=== PATIENT | female | born 1970 | race American Indian/Alaskan Native ===

== ENCOUNTER 2019-05-13 04:10 | Inpatient (IN) | payer SELFPAY ==
[2019-05-13] MEDS ORDERED: IPRATROPIUM/ALBUTEROL SULFATE 3 ML AMPUL.NEB IH ONE ×2 (04:22→04:47)
--- NOTE | 2019-05-13 05:16 | XRay Report ---
CHEST 2 VIEWS INDICATION / CLINICAL INFORMATION: cough and wheezing. COMPARISON: None available. FINDINGS: SUPPORT DEVICES: None. HEART / MEDIASTINUM: No significant abnormality. LUNGS / PLEURA: No significant pulmonary or pleural abnormality. .No pneumothorax. ADDITIONAL FINDINGS: No significant additional findings. IMPRESSION: 1. No acute findings. Signer Name: Bruce Presley MD Signed: 05/13/2019 5:11 AM Workstation Name: [id number]
--- NOTE | 2019-05-13 07:32 | Emergency Department Report ---
ED Chest Pain HPI - General Chief Complaint: Upper Respiratory Infection Stated Complaint: SOB Time Seen by Provider: 05/13/19 06:27 Source: patient Mode of arrival: Ambulatory Limitations: No Limitations - History of Present Illness Initial Comments: This is a 48-year old female who is morbidly obese with a history of pulmonary embolism who states that she is compliant with her Eliquis. She states that the source of the pulmonary embolism was not found. She does not report a history of coronary artery disease. She complains of largely nonproductive cough. She states that she had a temperature of 102.1 measured orally at home. She has been short of breath. She has had some discomfort in her anterior chest beginning just after arrival in the emergency department but not prior. She was given nebulized therapy prior to my encounter which she states was of benefit. She states that she does have a history of asthma. She does not complain of leg pain. She did not complain of nausea vomiting or unusual sweating. MD Complaint: chest pain -: Gradual, minutes(s) Onset: during rest Pain Location: substernal Pain Radiation: none Severity: mild, moderate Severity scale (0 -10): 0 Quality: aching Improves With: nothing Worsens With: nothing Context: other (History of pulmonary embolism) re: dyspnea. denies: nausea, vomting, diaphoresis Other Symptoms: cough, fever. denies: syncope Treatments Prior to Arrival: none Aspirin use within the Past 7 Days: (0) No - Related Data Home Medications Medication Instructions Recorded Confirmed Last Taken Albuterol INH(or & Nicu Only) 2 puff IH QID PRN 05/13/19 05/13/19 05/12/19 [ProAir HFA Inhaler] Apixaban [Eliquis] 5 mg PO BID 05/13/19 05/13/19 05/12/19 Fluticasone/Vilanterol [Breo 1 each IH QDAY 05/13/19 05/13/19 05/12/19 Ellipta 200-25 Mcg INH] Gabapentin [Neurontin] 300 mg PO Q8HR 05/13/19 05/13/19 05/12/19 Insulin Aspart (Nf) [NovoLOG 40 units SQ BID 05/13/19 05/13/19 05/12/19 Flexpen] Torsemide [Demadex] 20 mg PO BID 02/05/13/19 05/12/19 amLODIPine [Norvasc] 10 mg PO DAILY 05/13/19 05/13/19 05/12/19 carvediloL [Coreg] 12.5 mg PO BID 05/13/19 05/13/19 05/12/19 hydrALAZINE [Apresoline] 25 mg PO Q8HR 05/13/19 05/13/19 05/12/19 Allergies Allergy/AdvReac Type Severity Reaction Status Date / Time vancomycin Allergy Anaphylaxis Verified 05/13/19 04:42 IVP dye Allergy Hives Uncoded 05/13/19 04:33 Heart Score - HEART Score History: Moderately suspicious EKG: Non-specific Age: 45-65 Risk factors: > 3 risk factors or hx of atherosclerotic disease Troponin: < normal limit HEART Score: 5 - Critical Actions Critical Actions: 4-6 pts:12-16.6% risk of adverse cardiac event. Should be admitted ED Review of Systems ROS: Stated complaint: SOB Other details as noted in HPI Constitutional: fever. denies: chills Eyes: denies: eye pain, eye discharge, vision change ENT: denies: ear pain, throat pain Respiratory: cough, shortness of breath, wheezing Cardiovascular: chest pain. denies: palpitations Endocrine: no symptoms reported Gastrointestinal: denies: abdominal pain, nausea, diarrhea Genitourinary: denies: urgency, dysuria, discharge Musculoskeletal: denies: back pain, joint swelling, arthralgia Skin: denies: rash, lesions Neurological: denies: headache, weakness, paresthesias Psychiatric: denies: anxiety, depression Hematological/Lymphatic: denies: easy bleeding, easy bruising ED Past Medical Hx - Past Medical History Previous Medical History?: Yes Hx Hypertension: Yes Hx Diabetes: Yes Hx Pulmonary Embolism: Yes Hx Asthma: Yes Additional medical history: Morbid Obesity - Surgical History Hx Cholecystectomy: Yes Hx Appendectomy: Yes Additional Surgical History: Tibal Ligation, Hernia Repair - Social History Smoking Status: Never Smoker Substance Use Type: None - Medications Home Medications: Home Medications Medication Instructions Recorded Confirmed Last Taken Type Albuterol INH(or & Nicu Only) 2 puff IH QID PRN 05/13/19 05/13/19 05/12/19 History [ProAir HFA Inhaler] Apixaban [Eliquis] 5 mg PO BID 05/13/19 05/13/19 05/12/19 History Fluticasone/Vilanterol [Breo 1 each IH QDAY 05/13/19 05/13/19 05/12/19 History Ellipta 200-25 Mcg INH] Gabapentin [Neurontin] 300 mg PO Q8HR 05/13/19 05/13/19 05/12/19 History Insulin Aspart (Nf) [NovoLOG 40 units SQ BID 05/13/19 05/13/19 05/12/19 History Flexpen] Torsemide [Demadex] 20 mg PO BID 05/13/19 05/13/19 05/12/19 History amLODIPine [Norvasc] 10 mg PO DAILY 05/13/19 05/13/19 05/12/19 History carvediloL [Coreg] 12.5 mg PO BID 05/13/19 05/13/19 05/12/19 History hydrALAZINE [Apresoline] 25 mg PO Q8HR 05/13/19 05/13/19 05/12/19 History ED Physical Exam - General Limitations: No Limitations General appearance: alert, in no apparent distress - Head Head exam: Present: atraumatic, normocephalic - Eye Eye exam: Present: normal appearance. Absent: scleral icterus - ENT ENT exam: Present: mucous membranes moist - Neck Neck exam: Present: normal inspection. Absent: meningismus - Respiratory Respiratory exam: Present: wheezes (Mild end expiratory). Absent: respiratory distress - Cardiovascular Cardiovascular Exam: Present: regular rate, normal rhythm. Absent: systolic murmur, diastolic murmur, rubs, gallop - GI/Abdominal GI/Abdominal exam: Present: soft, normal bowel sounds. Absent: distended, tenderness, guarding, rebound, rigid - Extremities Exam Extremities exam: Present: normal inspection. Absent: calf tenderness - Back Exam Back exam: Present: normal inspection - Neurological Exam Neurological exam: Present: alert, oriented X3, CN II-XII intact. Absent: motor sensory deficit - Psychiatric Psychiatric exam: Present: normal affect, normal mood - Skin Skin exam: Present: warm, dry, intact, normal color. Absent: rash ED Course Vital Signs 05/13/19 05/13/19 05/13/19 04:34 04:59 05:13 Temperature 98.2 F Pulse Rate 125 H 113 H 109 H Respiratory 26 H 22 20 Rate Blood Pressure 224/56 Blood Pressure 177/76 [Left] O2 Sat by Pulse 99 100 100 Oximetry 05/13/19 05/13/19 05/13/19 06:16 06:46 07:00 Temperature 98.4 F Pulse Rate 121 H 106 H Respiratory 24 20 Rate Blood Pressure 187/85 Blood Pressure 191/81 [Left] O2 Sat by Pulse 100 97 97 Oximetry 05/13/19 05/13/19 08:00 08:21 Temperature Pulse Rate 101 H 105 H Respiratory 24 Rate Blood Pressure 194/89 194/89 Blood Pressure [Left] O2 Sat by Pulse 96 Oximetry - Reevaluation(s) Reevaluation #1: Lab analysis states clotted CBC and coag tubes. They request that we reorder. This has been done. The patient will be admitted to the hospital service for further care and evaluation. 05/13/19 09:07 Reevaluation #2: The patient has high pretest probability for pulmonary embolism. However, she is too large for diagnostic study. She is taking Eliquis. However I suspect the 5 mg dose is very low for her size. In either case I believe she should have empiric anticoagulation. I discussed this with the pharmacist. We agree that the patient will go on a standard heparin drip without bolus at this point. I am awaiting Dr. Castillo to admit the patient. The morning hospitalist (Dr. Barrow) has informed me that they are "capped" and admissions are deferred to the 11:00 hospitalist. 05/13/19 10:17 05/13/19 10:20 JJ score - Jj Score Age > 65: (0) No Aspirin use within the Past 7 Days: (0) No 3 or more CAD Risk Factors: (1) Yes 2 or more Angina events in past 24 hrs: (0) No Known CAD with more than 50% Stenosis: (0) No Elevated Cardiac Markers: (0) No ST Deviation Greater than 0.5mm: (0) No JJ Score: 1 ED Medical Decision Making - Lab Data Result diagrams: 05/13/19 09:16 05/13/19 07:23 Laboratory Results - last 24 hr 05/13/19 05/13/19 05/13/19 07:23 07:23 07:23 Sodium 140 Potassium 4.0 Chloride 100.5 Carbon Dioxide 18 L Anion Gap 26 BUN 11 Creatinine 0.7 Estimated GFR > 60 BUN/Creatinine Ratio 16 Glucose 238 H Lactic Acid 2.90 H* Calcium 9.6 Magnesium 1.90 Total Bilirubin 0.50 Direct Bilirubin 0.2 Indirect Bilirubin 0.3 AST 45 H ALT 46 Alkaline Phosphatase 182 H Total Creatine Kinase 64 CK-MB (CK-2) < 1.0 CK-MB (CK-2) Rel Index 1.5 Troponin T < 0.010 NT-Pro-B Natriuret Pep 214.4 Total Protein 7.9 Albumin 3.2 L Albumin/Globulin Ratio 0.7 Laboratory Results - last 24 hr 05/13/19 05/13/19 05/13/19 07:23 07:23 07:23 Sodium 140 Potassium 4.0 Chloride 100.5 Carbon Dioxide 18 L Anion Gap 26 BUN 11 Creatinine 0.7 Estimated GFR > 60 BUN/Creatinine Ratio 16 Glucose 238 H Lactic Acid 2.90 H* Calcium 9.6 Magnesium 1.90 Total Bilirubin 0.50 Direct Bilirubin 0.2 Indirect Bilirubin 0.3 AST 45 H ALT 46 Alkaline Phosphatase 182 H Total Creatine Kinase 64 CK-MB (CK-2) < 1.0 CK-MB (CK-2) Rel Index 1.5 Troponin T < 0.010 NT-Pro-B Natriuret Pep 214.4 Total Protein 7.9 Albumin 3.2 L Albumin/Globulin Ratio 0.7 Laboratory Results - last 24 hr 05/13/19 05/13/19 05/13/19 07:23 07:23 07:23 Sodium 140 Potassium 4.0 Chloride 100.5 Carbon Dioxide 18 L Anion Gap 26 BUN 11 Creatinine 0.7 Estimated GFR > 60 BUN/Creatinine Ratio 16 Glucose 238 H Lactic Acid 2.90 H* Calcium 9.6 Magnesium 1.90 Total Bilirubin 0.50 Direct Bilirubin 0.2 Indirect Bilirubin 0.3 AST 45 H ALT 46 Alkaline Phosphatase 182 H Total Creatine Kinase 64 CK-MB (CK-2) < 1.0 CK-MB (CK-2) Rel Index 1.5 Troponin T < 0.010 NT-Pro-B Natriuret Pep 214.4 Total Protein 7.9 Albumin 3.2 L Albumin/Globulin Ratio 0.7 Lab notified CBC not resulted - EKG Data -: EKG Interpreted by Mo EKG shows normal: sinus rhythm, axis, intervals, QRS complexes, ST-T waves Rate: normal - EKG Data Interpretation: no acute changes, other (Low voltage) - Radiology Data Radiology results: report reviewed (No acute process per radiologist), image reviewed Critical care attestation.: If time is entered above; I have spent that time in minutes in the direct care of this critically ill patient, excluding procedure time. ED Disposition Clinical Impression: Elevated lactic acid level, Morbid obesity, On continuous oral anticoagulation, History of pulmonary embolism Chest pain Qualifiers: Chest pain type: unspecified Qualified Code(s): R07.9 - Chest pain, unspecified Leukocytosis Qualifiers: Leukocytosis type: unspecified Qualified Code(s): D72.829 - Elevated white blood cell count, unspecified Hyperglycemia due to type 2 diabetes mellitus Qualifiers: Diabetes mellitus detention insulin use: without detention use Qualified Code(s): E11.65 - Type 2 diabetes mellitus with hyperglycemia Disposition: OP ADMIT IP TO THIS HOSP Is pt being admited?: Yes Does the pt Need Aspirin: Yes Condition: Stable Instructions: Chest Pain (ED), Diabetes Mellitus Type 2 in Adults (ED) Referrals: PRIMARY CARE, [Primary Care Provider] - 3-5 Days Time of Disposition: :07
[2019-05-13 08:20] LABS: BUN/Creatinine Ratio 16; Blood Urea Nitrogen 11 mg/dL (7-17); Calcium 9.6 mg/dL (8.4-10.2); Hemolysis Index 78
[2019-05-13 08:21] LABS: Alanine Aminotransferase 46 units/L (7-56); Albumin 3.2 g/dL (3.9-5); Bilirubin,Direct 0.2 mg/dL (0-0.2)
[2019-05-13 08:26] LABS: Creatine Kinase MB < 1.0 ng/mL (0.0-4.0)
[2019-05-13] MEDS ORDERED: ASPIRIN 325 MG TAB PO ONE (09:07)
[2019-05-13 09:38] LABS: Basophils % (Auto) 0.2 % (0.0-1.8); Eosinophils # (Auto) 0.1 K/mm3 (0.0-0.4); Eosinophils % (Auto) 0.3 % (0.0-4.3); Hematocrit 32.3 % (30.3-42.9); Hemoglobin 10.4 gm/dl (10.1-14.3); Lymphocytes # (Auto) 1.2 K/mm3 (1.2-5.4); Lymphocytes % (Auto) 5.9 % (13.4-35.0); Mean Corpuscular HGB Conc 32 % (30-34); Mean Corpuscular Volume 72 fl (79-97); Monocytes # (Auto) 1.5 K/mm3 (0.0-0.8); Monocytes % (Auto) 7.7 % (0.0-7.3); Platelet Count 443 K/mm3 (140-440); Red Blood Count 4.46 M/mm3 (3.65-5.03); Red Cell Distribution Width 18.2 % (13.2-15.2)
[2019-05-13] MEDS ORDERED: LORazepam 2 MG/ML VIAL IV PRN (09:45)
[2019-05-13] MEDS ORDERED: ONDANSETRON 4 MG/2 ML INJ IV ONE (09:54)
[2019-05-13] MEDS ORDERED: METOCLOPRAMIDE 10 MG/2 ML INJ IV ONE (09:55)
[2019-05-13] MEDS ORDERED: LORazepam 100 MG in SODIUM CHLORIDE 0.9% 50 ML, EMPTY BAG 0 ML IV SCH (10:00)
[2019-05-13 10:06] LABS: INR 1.07 (0.87-1.13); Partial Thromboplastin Time 29.2 Sec. (24.2-36.6)
[2019-05-13] MEDS ORDERED: MORPHINE 2 MG/1 ML INJ IV ONE (10:30)
[2019-05-13] MEDS ORDERED: MORPHINE 2 MG/1 ML INJ ONE (10:31)
[2019-05-13] MEDS: HEPARIN/ 0.45% NACL DRIP 25,000 UNIT/500 ML BAG IV SCH (11:54)
--- NOTE | 2019-05-13 16:20 | History and Physical Report ---
History of Present Illness Date of examination: 05/13/19 Date of admission: 05/13/19 10:20 History of present illness: This is a 48-year old female who is morbidly obese with a history of pulmonary embolism who states that she is compliant with her Eliquis. She states that the source of the pulmonary embolism was not found. She does not report a history of coronary artery disease. She complains of largely nonproductive cough. She states that she had a temperature of 102.1 measured orally at home. She has been short of breath. She has had some discomfort in her anterior chest begin kt just after arrival in the emergency department but not prior. She was given nebulized therapy prior to my encounter which she states was of benefit. She states that she does have a history of asthma. She does not complain of leg pain. She did not complain of nausea vomiting or unusual sweating. MD Complaint: chest pain -: Gradual, minutes(s) Onset: during rest Pain Location: substernal Pain Radiation: none Severity: mild, moderate Severity scale (0 -10): 0 Quality: aching Improves With: nothing Worsens With: nothing Context: other (History of pulmonary embolism) re: dyspnea. denies: nausea, vomting, diaphoresis Other Symptoms: cough, fever. denies: syncope Treatments Prior to Arrival: none Aspirin use within the Past 7 Days: (0) No - Related Data Home Medications Medication Instructions Recorded Confirmed Last Taken Albuterol INH(or & Nicu Only) 2 puff IH QID PRN 05/13/19 05/13/19 05/12/19 [ProAir HFA Inhaler] Apixaban [Eliquis] 5 mg PO BID 05/13/19 05/13/19 05/12/19 Fluticasone/Vilanterol [Breo 1 each IH QDAY 05/13/19 05/13/19 05/12/19 Ellipta 200-25 Mcg INH] Gabapentin [Neurontin] 300 mg PO Q8HR 05/13/19 05/13/19 05/12/19 Insulin Aspart (Nf) [NovoLOG 40 units SQ BID 05/13/19 05/13/19 05/12/19 Flexpen] Torsemide [Demadex] 20 mg PO BID 05/13/19 05/13/19 05/12/19 amLODIPine [Norvasc] 10 mg PO DAILY 05/13/19 05/13/19 05/12/19 carvediloL [Coreg] 12.5 mg PO BID 05/13/19 05/13/19 05/12/19 hydrALAZINE [Apresoline] 25 mg PO Q8HR 05/13/19 05/13/19 05/12/19 Allergies Allergy/AdvReac Type Severity Reaction Status Date / Time vancomycin Allergy Anaphylaxis Verified 05/13/19 04:42 IVP dye Allergy Hives Uncoded 05/13/19 04:33 Heart Score - HEART Score History: Moderately suspicious EKG: Non-specific Age: 45-65 Risk factors: > 3 risk factors or hx of atherosclerotic disease Troponin: < normal limit HEART Score: 5 - Critical Actions Critical Actions: 4-6 pts:12-16.6% risk of adverse cardiac event. Should be admitted ED Review of Systems ROS: Stated complaint: SOB Other details as noted in HPI Constitutional: fever. denies: chills Eyes: denies: eye pain, eye discharge, vision change ENT: denies: ear pain, throat pain Respiratory: cough, shortness of breath, wheezing Cardiovascular: chest pain. denies: palpitations Endocrine: no symptoms reported Gastrointestinal: denies: abdominal pain, nausea, diarrhea Genitourinary: denies: urgency, dysuria, discharge Musculoskeletal: denies: back pain, joint swelling, arthralgia Skin: denies: rash, lesions Neurological: denies: headache, weakness, paresthesias Psychiatric: denies: anxiety, depression Hematological/Lymphatic: denies: easy bleeding, easy bruising - Past Medical History Previous Medical History?: Yes Hx Hypertension: Yes Hx Diabetes: Yes Hx Pulmonary Embolism: Yes Hx Asthma: Yes Additional medical history: Morbid Obesity - Surgical History Hx Cholecystectomy: Yes Hx Appendectomy: Yes Additional Surgical History: Tibal Ligation, Hernia Repair - Social History Smoking Status: Never Smoker Substance Use Type: None - Medications Home Medications: Home Medications Medication Instructions Recorded Confirmed Last Taken Type Albuterol INH(or & Nicu Only) 2 puff IH QID PRN 05/13/19 05/13/19 05/12/19 History [ProAir HFA Inhaler] Apixaban [Eliquis] 5 mg PO BID 05/13/19 05/13/19 05/12/19 History Fluticasone/Vilanterol [Breo 1 each IH QDAY 05/13/19 05/13/19 05/12/19 History Ellipta 200-25 Mcg INH] Gabapentin [Neurontin] 300 mg PO Q8HR 05/13/19 05/13/19 05/12/19 History Insulin Aspart (Nf) [NovoLOG 40 units SQ BID 05/13/19 05/13/19 05/12/19 History Flexpen] Torsemide [Demadex] 20 mg PO BID 05/13/19 05/13/19 05/12/19 History amLODIPine [Norvasc] 10 mg PO DAILY 05/13/19 05/13/19 05/12/19 History carvediloL [Coreg] 12.5 mg PO BID 05/13/19 05/13/19 05/12/19 History hydrALAZINE [Apresoline] 25 mg PO Q8HR 05/13/19 05/13/19 05/12/19 History Medications and Allergies Allergies Allergy/AdvReac Type Severity Reaction Status Date / Time vancomycin Allergy Anaphylaxis Verified 05/13/19 04:42 IVP dye Allergy Hives Uncoded 05/13/19 04:33 Home Medications Medication Instructions Recorded Confirmed Last Taken Type Albuterol INH(or & Nicu Only) 2 puff IH QID PRN 05/13/19 05/13/19 05/12/19 History [ProAir HFA Inhaler] Apixaban [Eliquis] 5 mg PO BID 05/13/19 05/13/19 05/12/19 History Fluticasone/Vilanterol [Breo 1 each IH QDAY 05/13/19 05/13/19 05/12/19 History Ellipta 200-25 Mcg INH] Gabapentin [Neurontin] 300 mg PO Q8HR 05/13/19 05/13/19 05/12/19 History Insulin Aspart (Nf) [NovoLOG 40 units SQ BID 05/13/19 05/13/19 05/12/19 History Flexpen] Torsemide [Demadex] 20 mg PO BID 05/13/19 05/13/19 05/12/19 History amLODIPine [Norvasc] 10 mg PO DAILY 05/13/19 05/13/19 05/12/19 History carvediloL [Coreg] 12.5 mg PO BID 05/13/19 05/13/19 05/12/19 History hydrALAZINE [Apresoline] 25 mg PO Q8HR 05/13/19 05/13/19 05/12/19 History Active Meds: Active Medications Heparin Sodium/Sodium Chloride (Heparin/ 0.45% Nacl-25,000 Unit/500 Ml) 25,000 unit in 500 mls @ 30 mls/hr IV TITR JULITA; Protocol Last Admin: 05/13/19 11:54 Dose: 1,500 units/hr, 30 mls/hr Documented by: Lorazepam (Ativan) 2 mg IV Q10MIN PRN PRN Reason: Agitation Exam - Constitutional Vitals: Temp Pulse Resp BP Pulse Ox 98.4 F 107 H 30 H 137/51 95 05/13/19 06:46 05/13/19 12:52 05/13/19 12:00 05/13/19 13:51 05/13/19 12:52 ADRIAN score - Adrian Score Age > 65: (0) No Aspirin use within the Past 7 Days: (0) No 3 or more CAD Risk Factors: (1) Yes 2 or more Angina events in past 24 hrs: (0) No Known CAD with more than 50% Stenosis: (0) No Elevated Cardiac Markers: (0) No ST Deviation Greater than 0.5mm: (0) No ADRIAN Score: 1 Results - Labs CBC & Chem 7: 05/13/19 09:16 05/13/19 07:23 Labs: Laboratory Last Values WBC 19.4 K/mm3 (4.5-11.0) H 05/13/19 09:16 RBC 4.46 M/mm3 (3.65-5.03) 05/13/19 09:16 Hgb 10.4 gm/dl (10.1-14.3) 05/13/19 09:16 Hct 32.3 % (30.3-42.9) 05/13/19 09:16 MCV 72 fl (79-97) L 05/13/19 09:16 MCH 23 pg (28-32) L 05/13/19 09:16 MCHC 32 % (30-34) 05/13/19 09:16 RDW 18.2 % (13.2-15.2) H 05/13/19 09:16 Plt Count 443 K/mm3 (140-440) H 05/13/19 09:16 Lymph % (Auto) 5.9 % (13.4-35.0) L 05/13/19 09:16 Crosby % (Auto) 7.7 % (0.0-7.3) H 05/13/19 09:16 Eos % (Auto) 0.3 % (0.0-4.3) 05/13/19 09:16 Baso % (Auto) 0.2 % (0.0-1.8) 05/13/19 09:16 Lymph # 1.2 K/mm3 (1.2-5.4) 05/13/19 09:16 Crosby # 1.5 K/mm3 (0.0-0.8) H 05/13/19 09:16 Eos # 0.1 K/mm3 (0.0-0.4) 05/13/19 09:16 Baso # 0.0 K/mm3 (0.0-0.1) 05/13/19 09:16 Seg Neutrophils % 85.9 % (40.0-70.0) H 05/13/19 09:16 Seg Neutrophils # 16.7 K/mm3 (1.8-7.7) H 05/13/19 09:16 PT 14.0 Sec. (12.2-14.9) 05/13/19 09:16 INR 1.07 (0.87-1.13) 05/13/19 09:16 APTT 29.2 Sec. (24.2-36.6) 05/13/19 09:16 D-Dimer 1113.13 ng/mlDDU (0-234) H 05/13/19 09:16 Sodium 140 mmol/L (137-145) 05/13/19 07:23 Potassium 4.0 mmol/L (3.6-5.0) 05/13/19 07:23 Chloride 100.5 mmol/L (98-107) 05/13/19 07:23 Carbon Dioxide 18 mmol/L (22-30) L 05/13/19 07:23 Anion Gap 26 mmol/L 05/13/19 07:23 BUN 11 mg/dL (7-17) 05/13/19 07:23 Creatinine 0.7 mg/dL (0.7-1.2) 05/13/19 07:23 Estimated GFR > 60 ml/min 05/13/19 07:23 BUN/Creatinine Ratio 16 % 05/13/19 07:23 Glucose 238 mg/dL (65-100) H 05/13/19 07:23 Lactic Acid 1.80 mmol/L (0.7-2.0) 05/13/19 12:55 Calcium 9.6 mg/dL (8.4-10.2) 05/13/19 07:23 Magnesium 1.90 mg/dL (1.7-2.3) 05/13/19 07:23 Total Bilirubin 0.50 mg/dL (0.1-1.2) 05/13/19 07:23 Direct Bilirubin 0.2 mg/dL (0-0.2) 05/13/19 07:23 Indirect Bilirubin 0.3 mg/dL 05/13/19 07:23 AST 45 units/L (5-40) H 05/13/19 07:23 ALT 46 units/L (7-56) 05/13/19 07:23 Alkaline Phosphatase 182 units/L (35-129) H 05/13/19 07:23 Total Creatine Kinase 64 units/L (30-135) 05/13/19 07:23 CK-MB (CK-2) < 1.0 ng/mL (0.0-4.0) 05/13/19 07:23 CK-MB (CK-2) Rel Index 1.5 (0-4) 05/13/19 07:23 Troponin T < 0.010 ng/mL (0.00-0.029) 05/13/19 07:23 NT-Pro-B Natriuret Pep 214.4 pg/mL (0-450) 05/13/19 07:23 Total Protein 7.9 g/dL (6.3-8.2) 05/13/19 07:23 Albumin 3.2 g/dL (3.9-5) L 05/13/19 07:23 Albumin/Globulin Ratio 0.7 % 05/13/19 07:23
[2019-05-13] MEDS ORDERED: HYDROmorphone 1 MG/1 ML INJ IV PRN (18:38)
[2019-05-13] MEDS ORDERED: ACETAMINOPHEN 325 MG TAB PO PRN (18:38)
[2019-05-13] MEDS ORDERED: ONDANSETRON 4 MG/2 ML INJ IV PRN (18:38)
[2019-05-13] MEDS ORDERED: INSULIN DEGLUDEC SQ SCH (18:45)
[2019-05-13] MEDS ORDERED: NON-FORMULARY EACH (Losartan [Cozaar] 100 MG) PO SCH (18:45)
[2019-05-13] MEDS ORDERED: NON-FORMULARY EACH (Fluticasone/Vilanterol [Breo Ellipta 200-25 Mcg Inh] 1 EACH) IH SCH (18:45)
[2019-05-13] MEDS: carvediloL 12.5 MG TAB PO SCH (21:33)
[2019-05-13] MEDS: GABAPENTIN 300 MG CAP PO SCH (21:52)
[2019-05-13] MEDS: hydrALAZINE 25 MG TAB PO SCH (21:53)
[2019-05-13] MEDS: LOSARTAN 50 MG TAB PO SCH (21:53)
[2019-05-13] MEDS: amLODIPine 10 MG TAB PO SCH (21:55)
[2019-05-13] MEDS: FAMOTIDINE 20 MG/2 ML INJ IV SCH (21:56)
[2019-05-13] MEDS ORDERED: INSULIN GLARGINE 100 UNITS/ML SUB-Q SCH (22:00)
[2019-05-13] MEDS ORDERED: APIXABAN 5 MG TAB PO SCH (22:00)
[2019-05-13] MEDS ORDERED: NON-FORMULARY EACH (Torsemide [Demadex] 20 MG) PO SCH (22:00)
[2019-05-13] MEDS: TORSEMIDE 10 MG TAB PO SCH (22:30)
[2019-05-13] MEDS: INSULIN LISPRO 100 UNIT/ML SUB-Q SCH (23:05)
[2019-05-14] MEDS: HEPARIN/ 0.45% NACL DRIP 25,000 UNIT/500 ML BAG IV SCH (04:30)
[2019-05-14] MEDS: oxyCODONE /ACETAMINOPHEN 5-325MG TAB PO PRN ×2 (04:40→14:59)
[2019-05-14 05:38] LABS: Hematocrit 30.4 % (30.3-42.9); Hemoglobin 9.7 gm/dl (10.1-14.3); Mean Corpuscular HGB Conc 32 % (30-34); Mean Corpuscular Volume 72 fl (79-97); Platelet Count 400 K/mm3 (140-440); Red Blood Count 4.25 M/mm3 (3.65-5.03); Red Cell Distribution Width 18.3 % (13.2-15.2)
[2019-05-14] MEDS: GABAPENTIN 300 MG CAP PO SCH ×2 (05:48→15:00)
[2019-05-14] MEDS: TORSEMIDE 10 MG TAB PO SCH (05:48)
[2019-05-14] MEDS: hydrALAZINE 25 MG TAB PO SCH ×2 (05:48→14:59)
[2019-05-14 06:05] LABS: Alanine Aminotransferase 32 units/L (7-56); Albumin 2.9 g/dL (3.9-5); BUN/Creatinine Ratio 13; Blood Urea Nitrogen 13 mg/dL (7-17); Calcium 9.3 mg/dL (8.4-10.2); Hemolysis Index 0
[2019-05-14 07:07] LABS: Basophils % (Manual) 0 % (0.0-1.8); Total Cells Counted 100
[2019-05-14 07:08] LABS: Hypochromasia 1+; Platelet Estimate Consistent w Auto; Target Cells Few
[2019-05-14] MEDS ORDERED: BUDESONIDE 0.5 MG/2 ML NEBU IH SCH (08:00)
[2019-05-14] MEDS ORDERED: ARFORMOTEROL 15 MCG/2 ML NEBU IH SCH (08:00)
[2019-05-14 09:45] VITALS: BP 105/53
[2019-05-14] MEDS: FAMOTIDINE 20 MG/2 ML INJ IV SCH (10:53)
[2019-05-14] MEDS: carvediloL 12.5 MG TAB PO SCH (10:53)
[2019-05-14] MEDS: amLODIPine 10 MG TAB PO SCH (10:54)
[2019-05-14] MEDS: LOSARTAN 50 MG TAB PO SCH (10:54)
[2019-05-14] MEDS: INSULIN LISPRO 100 UNIT/ML SUB-Q SCH (11:03)
--- NOTE | 2019-05-14 13:33 | Progress Note ---
Subjective Date of service: 05/14/19 Objective - Constitutional Vitals: Vital Signs - 12hr 05/14/19 05/14/19 05/14/19 04:09 05:48 07:34 Temperature 98.0 F Pulse Rate 108 H 108 H Pulse Rate [ 100 H Anterior Bilateral Throughout] Respiratory 18 Rate Respiratory 20 Rate [Anterior Bilateral Throughout] Blood Pressure 138/61 136/81 O2 Sat by Pulse 96 Oximetry 05/14/19 05/14/19 05/14/19 08:27 10:53 10:54 Temperature 98.2 F Pulse Rate 95 H 88 Pulse Rate [ Anterior Bilateral Throughout] Respiratory 18 Rate Respiratory Rate [Anterior Bilateral Throughout] Blood Pressure 105/53 O2 Sat by Pulse Oximetry - Labs CBC & Chem 7: 05/14/19 04:58 05/14/19 04:58 Labs: Abnormal lab results 05/13/19 05/13/19 05/13/19 Range/Units 17:29 19:17 19:17 WBC (4.5-11.0) K/mm3 Hgb (10.1-14.3) gm/dl MCV (79-97) fl MCH (28-32) pg RDW (13.2-15.2) % Seg Neuts % (Manual) (40.0-70.0) % Lymphocytes % (Manual) (13.4-35.0) % Monocytes % (Manual) (0.0-7.3) % Seg Neutrophils # Man (1.8-7.7) K/mm3 Monocytes # (Manual) (0.0-0.8) K/mm3 Heparin Anti-Xa Level 0.10 L (0.3-0.7) U.I./ml Glucose (65-100) mg/dL POC Glucose 300 H (70-105) Hemoglobin A1c 8.6 H (4-6) % Alkaline Phosphatase (35-129) units/L Albumin (3.9-5) g/dL 05/13/19 05/14/19 05/14/19 Range/Units 21:41 02:50 04:58 WBC 18.1 H (4.5-11.0) K/mm3 Hgb 9.7 L (10.1-14.3) gm/dl MCV 72 L (79-97) fl MCH 23 L (28-32) pg RDW 18.3 H (13.2-15.2) % Seg Neuts % (Manual) 78.0 H (40.0-70.0) % Lymphocytes % (Manual) 8.0 L (13.4-35.0) % Monocytes % (Manual) 13.0 H (0.0-7.3) % Seg Neutrophils # Man 14.1 H (1.8-7.7) K/mm3 Monocytes # (Manual) 2.4 H (0.0-0.8) K/mm3 Heparin Anti-Xa Level 0.16 L (0.3-0.7) U.I./ml Glucose (65-100) mg/dL POC Glucose 242 H (70-105) Hemoglobin A1c (4-6) % Alkaline Phosphatase (35-129) units/L Albumin (3.9-5) g/dL 05/14/19 05/14/19 Range/Units 04:58 10:53 WBC (4.5-11.0) K/mm3 Hgb (10.1-14.3) gm/dl MCV (79-97) fl MCH (28-32) pg RDW (13.2-15.2) % Seg Neuts % (Manual) (40.0-70.0) % Lymphocytes % (Manual) (13.4-35.0) % Monocytes % (Manual) (0.0-7.3) % Seg Neutrophils # Man (1.8-7.7) K/mm3 Monocytes # (Manual) (0.0-0.8) K/mm3 Heparin Anti-Xa Level (0.3-0.7) U.I./ml Glucose 190 H (65-100) mg/dL POC Glucose 213 H (70-105) Hemoglobin A1c (4-6) % Alkaline Phosphatase 188 H (35-129) units/L Albumin 2.9 L (3.9-5) g/dL
[2019-05-14] MEDS ORDERED: cefTRIAXone/NS 2 GM/100 ML 2 GM/100 ML BAG IV SCH (14:00)
[2019-05-14 14:22] LABS: Bacteria,Urine 1+ /HPF (Negative); Bilirubin,Urine NEG (Negative); Blood,Urine NEG (Negative); Color,Urine Yellow (Yellow); Protein,Urine <15 mg/dL mg/dL (Negative)
== END 2019-05-14 16:10 | disposition home or self-care (01) | DRG 313 ==
LOC: ED 04:10 → 4A 10:20
PROVIDERS: ADMIT Internal Medicine; ATTEND Internal Medicine
DX: R07.9 Chest pain, unspecified (principal); Z68.45 Body mass index [BMI] 70 or greater, adult; E11.65 Type 2 diabetes mellitus with hyperglycemia; D72.829 Elevated white blood cell count, unspecified; R79.89 Other specified abnormal findings of blood chemistry; E66.01 Morbid (severe) obesity due to excess calories; I25.10 Atherosclerotic heart disease of native coronary artery without angina pectoris; Z79.51 Long term (current) use of inhaled steroids; Z79.899 Other long term (current) drug therapy; Z86.711 Personal history of pulmonary embolism; Z79.01 Long term (current) use of anticoagulants; Z79.4 Long term (current) use of insulin; Z88.1 Allergy status to other antibiotic agents; Z91.041 Radiographic dye allergy status; Z98.51 Tubal ligation status
CPT/HCPCS: 36415; 71046; 80048; 80053; 80076; 81001; 82140; 82550; 82553; 82962; 83036; 83735; 83880; 84484; 85007; 85025; 85379; 85520; 85610; 85730; 87040; 87116; 93005; 93010; 94640; 96374; 96375; G0378; J0696; J1170; J1644; J1815; J1956; J2060; J2270; J2405; J2765

== ENCOUNTER 2019-08-10 00:17 | Inpatient (IN) | payer OTHER ==
[2019-08-10] MEDS ORDERED: MORPHINE 4 MG/1 ML INJ IV ONE ×2 (00:54→02:23)
[2019-08-10] MEDS ORDERED: ONDANSETRON 4 MG/2 ML INJ IV ONE (00:54)
--- NOTE | 2019-08-10 01:25 | Emergency Department Report ---
HPI - General Time Seen by Provider: 08/10/19 00:29 - HPI HPI: 48-year-old -N[place]alese female presents to the emergency department via EMS from home with a complaint of severe mid abdominal pain, nausea and vomiting, that started earlier this afternoon. Patient has a history of hypertension, diabetes, CHF, asthma and previous PE currently anticoagulated on Eliquis. Patient also has a history of bowel obstructions. She had 1 in July 2017 that was repaired with some type of robotic laparoscopy. The patient also says that she was at [facility] about 1 month ago for a bowel obstruction as well that was treated at that time with nasogastric tubes. She has not taken anything for her symptoms prior to presentation. ED Past Medical Hx - Past Medical History Hx Hypertension: Yes Hx Diabetes: Yes Hx Pulmonary Embolism: Yes Hx Asthma: Yes Additional medical history: Morbid Obesity - Surgical History Hx Cholecystectomy: Yes Hx Appendectomy: Yes Additional Surgical History: Tibal Ligation, Hernia Repair - Social History Smoking Status: Never Smoker - Medications Home Medications: Home Medications Medication Instructions Recorded Confirmed Last Taken Type Albuterol INH(or & Nicu Only) 2 puff IH QID PRN 05/13/19 05/13/19 05/12/19 History [ProAir HFA Inhaler] Fluticasone/Vilanterol [Breo 1 each IH QDAY 05/13/19 05/13/19 05/12/19 History Ellipta 200-25 Mcg INH] Gabapentin 300 mg PO Q8HR 05/13/19 05/13/19 05/12/19 History Insulin Aspart (Nf) [NovoLOG 40 units SQ BID 05/13/19 05/13/19 05/12/19 History Flexpen] Losartan [Cozaar] 100 mg PO QDAY 05/13/19 05/13/19 Unknown History Semaglutide [Ozempic] 0.25 mg SQ 1XW 05/13/19 05/13/19 Unknown History amLODIPine 10 mg PO DAILY 05/13/19 05/13/19 05/12/19 History hydrALAZINE [Apresoline TAB] 25 mg PO Q8HR 05/13/19 05/13/19 05/12/19 History Apixaban [Eliquis] 5 mg PO BID #60 tablet 05/14/19 Unknown Rx Arformoterol Nebu [Brovana Nebu] 15 mcg IH Q12HRT ml 05/14/19 Unknown Rx Gabapentin 300 mg PO Q8HR capsule 05/14/19 Unknown Rx Insulin Degludec [Tresiba 50 unit SQ QHS #5 pen 05/14/19 Unknown Rx Flextouch U-200] Losartan [Cozaar] 100 mg PO QDAY tablet 05/14/19 Unknown Rx Torsemide [Demadex] 20 mg PO BID #60 05/14/19 Unknown Rx amLODIPine 10 mg PO DAILY tablet 05/14/19 Unknown Rx carvediloL [Coreg] 12.5 mg PO BID tablet 05/14/19 Unknown Rx cefUROXime [Ceftin] 500 mg PO Q12H #16 tablet 05/14/19 Unknown Rx oxyCODONE /ACETAMINOPHEN [Percocet 1 tab PO Q6H PRN #12 tablet 05/14/19 Unknown Rx 5/325 mg] oxyCODONE [roxiCODONE] 5 mg PO Q6HR PRN #20 tablet 05/14/19 Unknown Rx ED Review of Systems ROS: Stated complaint: ABD PAIN Other details as noted in HPI Comment: All other systems reviewed and negative Constitutional: denies: chills, fever Eyes: denies: eye pain, vision change ENT: denies: ear pain, throat pain Respiratory: denies: cough, shortness of breath Cardiovascular: denies: chest pain, palpitations Gastrointestinal: abdominal pain, nausea, vomiting Genitourinary: denies: dysuria, discharge Musculoskeletal: denies: back pain, arthralgia Skin: denies: rash, lesions Neurological: denies: headache, weakness Physical Exam - Physical Exam Physical Exam: GENERAL: The patient is well-developed well-nourished. HENT: Normocephalic. Atraumatic. Patient has moist mucous membranes. EYES: Extraocular motions are intact. NECK: Supple. Trachea is midline. CHEST/LUNGS: Clear to auscultation. There is no respiratory distress noted. HEART/CARDIOVASCULAR: Regular. There is no tachycardia. There is no murmur. ABDOMEN: Abdomen is soft. There is mid to upper quadrant abdominal tenderness to palpation. No guarding. Patient has normal bowel sounds. Morbidly obese habitus. SKIN: Skin is warm and dry. NEURO: The patient is awake, alert, and oriented. The patient is cooperative. The patient has no focal neurologic deficits. Normal speech. MUSCULOSKELETAL: There is no tenderness or deformity. There is no evidence of acute injury. ED Course - Consultations Consultation #1: I spoke with the general surgeon on-call, Dr. Lui, regarding the patient's CT findings of partial or full small bowel obstruction. An NG tube will be placed, the patient will receive gentle IV fluid, and Dr. Lui will consult on this patient. The patient will be admitted to the hospitalist service. 08/10/19 02:29 ED Medical Decision Making - Lab Data Result diagrams: 08/10/19 01:01 08/10/19 01:01 - Radiology Data Radiology results: report reviewed, image reviewed interpreted by me: Abdominal x-ray shows some proximal distended bowel gas CT ABDOMEN AND PELVIS WITHOUT CONTRAST HISTORY: MAIN: mid Abd pain started this afternoon N/V, HX of SBO. COMPARISON: None. TECHNIQUE: CT images of the abdomen and pelvis were obtained without administration of intravenous contrast. All CT scans at this location are performed using CT dose reduction for ALARA by means of automated exposure control. FINDINGS: Overall the exam is quite limited because of patient body habitus. Lungs/bones: Lung bases are clear. No acute osseous abnormality identified. A single enlarged left axillary lymph node is present measuring 1.1 cm in short axis on image #4 of series #2. Abdomen/pelvis: The gallbladder appears to be surgically absent. Liver is poorly visualized but no gross abnormality is identified. The spleen, pancreas, adrenals, kidneys, and proximal GI tract appear unremarkable. The urinary bladder is unremarkable. Reproductive organs are not well seen and may be absent. No gross pelvic free fluid identified. There is rectus abdominus diastasis in the midline containing bowel. This area also extends into an umbilical hernia which contains bowel and some of the upstream small bowel loops are abnormally dilated and fluid-filled. IMPRESSION: 1. Umbilical hernia containing bowel with upstream dilated fluid- filled bowel loops suggesting at least partial obstruction. 2. No other acute abnormality seen on this very limited exam. - Medical Decision Making This patient presents to the emergency department with some acute mid abdominal pain and some nausea and vomiting. She has a history of 2 previous small bowel obstructions. Labs are mostly unremarkable except for some hyperglycemia with a blood sugar of about 330. She does not appear in diabetic ketoacidosis. Abdominal x-ray shows some dilated proximal bowel gas. We were able to obtain a CT scan without contrast, as the patient is allergic to IV dye, and it shows at least a partial small bowel obstruction. General surgery was contacted and consulted. An NG tube has been placed and will be turned on to low intermittent suction. The patient will be admitted to the hospital for further evaluation, general surgery consult, and further treatment and was accepted for admission by the hospitalist, Dr. Mcwilliams. Critical Care Time: Yes Critical care time in (mins) excluding proc time.: 35 Critical care attestation.: If time is entered above; I have spent that time in minutes in the direct care of this critically ill patient, excluding procedure time. Critical care time was spent on this patient in doing her initial evaluation, multiple re- evaluations, ordering and interpretation of labs and imaging, treatment of her hyperglycemia, treatment of the SBO, discussion with general surgery and the hospitalist service. Critical Care Time: 35 minutes ED Disposition Clinical Impression: Small bowel obstruction, Hyperglycemia, Morbid obesity with BMI of 70 and over, adult Disposition: OP ADMIT IP TO THIS HOSP Is pt being admited?: Yes Condition: Serious Referrals: PRIMARY CARE, [Primary Care Provider] - 3-5 Days Time of Disposition: 04:31
[2019-08-10 01:31] LABS: Basophils # (Auto) 0.1 K/mm3 (0.0-0.1); Basophils % (Auto) 0.6 % (0.0-1.8); Eosinophils # (Auto) 0.1 K/mm3 (0.0-0.4); Eosinophils % (Auto) 1.3 % (0.0-4.3); Hematocrit 35.4 % (30.3-42.9); Hemoglobin 11.9 gm/dl (10.1-14.3); Lymphocytes # (Auto) 1.1 K/mm3 (1.2-5.4); Lymphocytes % (Auto) 9.2 % (13.4-35.0); Mean Corpuscular HGB Conc 34 % (30-34); Mean Corpuscular Volume 75 fl (79-97); Monocytes # (Auto) 0.5 K/mm3 (0.0-0.8); Platelet Count 494 K/mm3 (140-440); Red Blood Count 4.72 M/mm3 (3.65-5.03); Red Cell Distribution Width 19.8 % (13.2-15.2)
--- NOTE | 2019-08-10 01:48 | XRay Report ---
ABDOMEN 2 VIEW(S) INDICATION / CLINICAL INFORMATION: Abdominal Pain. COMPARISON: None available. FINDINGS: TUBES / LINES: None. BOWEL GAS PATTERN: A few abnormal mildly dilated small bowel loops left of midline are noted, ultimat arlene nonspecific since there is air distally. FREE AIR / EXTRALUMINAL GAS: None seen. ADDITIONAL FINDINGS: No significant additional findings. IMPRESSION: 1. Nonspecific small bowel findings. No gross free air. Signer Name: Salvatore Becerra MD Signed: 08/10/2019 1:43 AM Workstation Name: [id number]
[2019-08-10 01:58] LABS: Alanine Aminotransferase 11 units/L (7-56); Albumin 3.8 g/dL (3.9-5); BUN/Creatinine Ratio 28; Blood Urea Nitrogen 17 mg/dL (7-17); Hemolysis Index 22
[2019-08-10 01:59] LABS: Bilirubin,Direct < 0.2 mg/dL (0-0.2)
--- NOTE | 2019-08-10 02:30 | Cat Scan Report ---
CT ABDOMEN AND PELVIS WITHOUT CONTRAST HISTORY: MAIN: mid Abd pain started this afternoon N/V, HX of SBO. COMPARISON: None. TECHNIQUE: CT images of the abdomen and pelvis were obtained without administration of intravenous co ntrast. All CT scans at this location are performed using CT dose reduction for ALARA by means of au tomated exposure control. FINDINGS: Overall the exam is quite limited because of patient body habitus. Lungs/bones: Lung bases are clear. No acute osseous abnormality identified. A single enlarged left a xillary lymph node is present measuring 1.1 cm in short axis on image #4 of series #2. Abdomen/pelvis: The gallbladder appears to be surgically absent. Liver is poorly visualized but no g ross abnormality is identified. The spleen, pancreas, adrenals, kidneys, and proximal GI tract appear unremarkable. The urinary bladder is unremarkable. Reproductive organs are not well seen and may be absent. No deepali s pelvic free fluid identified. There is rectus abdominus diastasis in the midline containing bowel. This area also extends into an umbilical hernia which contains bowel and some of the upstream small b owel loops are abnormally dilated and fluid-filled. IMPRESSION: 1. Umbilical hernia containing bowel with upstream dilated fluid-filled bowel loops suggesting at chance st partial obstruction. 2. No other acute abnormality seen on this very limited exam. Signer Name: Salvatore Becerra MD Signed: 08/10/2019 2:26 AM Workstation Name: [id number]
[2019-08-10] MEDS ORDERED: INSULIN REGULAR, HUMAN 100 UNITS/1 ML IV ONE (02:38)
[2019-08-10] MEDS ORDERED: SODIUM CHLORIDE 0.9% 1000 ML 1,000 ML IV ONE ×2 (02:51→21:33)
[2019-08-10] MEDS ORDERED: DEXTROSE 50% IN WATER (25GM) 50 ML SYRINGE IV PRN (04:44)
[2019-08-10] MEDS ORDERED: ACETAMINOPHEN 325 MG TAB PO PRN (04:44)
--- NOTE | 2019-08-10 04:48 | XRay Report ---
ABDOMEN 1 VIEW(S) INDICATION / CLINICAL INFORMATION: tube placement. COMPARISON: 08/10/2019 FINDINGS: TUBES / LINES: NG tube curled on the mid stomach. BOWEL GAS PATTERN: No significant abnormality. FREE AIR / EXTRALUMINAL GAS: None seen. ADDITIONAL FINDINGS: No significant additional findings. IMPRESSION: 1. NG tube curled in the mid stomach. Signer Name: Salvatore Becerra MD Signed: 08/10/2019 4:43 AM Workstation Name: [id number]
--- NOTE | 2019-08-10 04:52 | History and Physical Report ---
History of Present Illness Date of examination: 08/10/19 Date of admission: 08/10/2019 Chief complaint: Abdominal pain History of present illness: 48-year-old with known history of hypertension, diabetes, CHF and also history of pulmonary embolism on anticoagulation with Eliquis presenting to the emergency room today complaining of abdominal pain. Abdominal pain was said to have started this afternoon. Abdominal pain is more in the epigastric region and around the periumbilical region. Patient has known history of bowel obstructions and has had robotic laparoscopy in the past. She was seen at [facility], [place] about a month ago for bowel obstruction at which time she was placed on NG tube. There is no no relieving or exacerbating factor for abdominal pain. She denies any fever or chills, no chest pain or shortness of breath, no headache or dizziness. Work-up in the emergency room including CT of the abdomen and pelvis reveals possible small bowel obstruction. Past History Past Medical History: diabetes, heart failure, hypertension, other (Asthma, history of PE in the past, morbid obesity) Past Surgical History: appendectomy, cholecystectomy, hernia repair (Hernia repair), Other (Tubal ligation, robotic laparoscopy,) Social history: no significant social history Family history: no significant family history Medications and Allergies Allergies Allergy/AdvReac Type Severity Reaction Status Date / Time vancomycin Allergy Anaphylaxis Verified 05/13/19 04:42 IVP dye Allergy Hives Uncoded 05/13/19 04:33 Home Medications Medication Instructions Recorded Confirmed Last Taken Type Albuterol INH(or & Nicu Only) 2 puff IH QID PRN 05/13/19 05/13/19 05/12/19 History [ProAir HFA Inhaler] Fluticasone/Vilanterol [Breo 1 each IH QDAY 05/13/19 05/13/19 05/12/19 History Ellipta 200-25 Mcg INH] Gabapentin 300 mg PO Q8HR 05/13/19 05/13/19 05/12/19 History Insulin Aspart (Nf) [NovoLOG 40 units SQ BID 05/13/19 05/13/19 05/12/19 History Flexpen] Losartan [Cozaar] 100 mg PO QDAY 05/13/19 05/13/19 Unknown History Semaglutide [Ozempic] 0.25 mg SQ 1XW 05/13/19 05/13/19 Unknown History amLODIPine 10 mg PO DAILY 05/13/19 05/13/19 05/12/19 History hydrALAZINE [Apresoline TAB] 25 mg PO Q8HR 05/13/19 05/13/19 05/12/19 History Apixaban [Eliquis] 5 mg PO BID #60 tablet 05/14/19 Unknown Rx Arformoterol Nebu [Brovana Nebu] 15 mcg IH Q12HRT ml 05/14/19 Unknown Rx Gabapentin 300 mg PO Q8HR capsule 05/14/19 Unknown Rx Insulin Degludec [Tresiba 50 unit SQ QHS #5 pen 05/14/19 Unknown Rx Flextouch U-200] Losartan [Cozaar] 100 mg PO QDAY tablet 05/14/19 Unknown Rx Torsemide [Demadex] 20 mg PO BID #60 05/14/19 Unknown Rx amLODIPine 10 mg PO DAILY tablet 05/14/19 Unknown Rx carvediloL [Coreg] 12.5 mg PO BID tablet 05/14/19 Unknown Rx cefUROXime [Ceftin] 500 mg PO Q12H #16 tablet 05/14/19 Unknown Rx oxyCODONE /ACETAMINOPHEN [Percocet 1 tab PO Q6H PRN #12 tablet 05/14/19 Unknown Rx 5/325 mg] oxyCODONE [roxiCODONE] 5 mg PO Q6HR PRN #20 tablet 05/14/19 Unknown Rx Active Meds: Active Medications Acetaminophen (Tylenol) 650 mg PO Q4H PRN PRN Reason: Pain MILD(1-3)/Fever >100.5/SAINZ Dextrose (D50w (25gm) Syringe) 50 ml IV Q30MIN PRN; Protocol PRN Reason: Hypoglycemia Sodium Chloride (Nacl 0.9% 1000 Ml) 1,000 mls @ 75 mls/hr IV ONCE ONE Stop: 08/10/19 16:10 Last Admin: 08/10/19 03:30 Dose: 75 mls/hr Documented by: Morphine Sulfate (Morphine) 2 mg IV Q4H PRN PRN Reason: Pain, Moderate (4-6) Ondansetron HCl (Zofran) 4 mg IV Q8H PRN PRN Reason: Nausea And Vomiting Sodium Chloride (Sodium Chloride Flush Syringe 10 Ml) 10 ml IV BID JULITA Sodium Chloride (Sodium Chloride Flush Syringe 10 Ml) 10 ml IV PRN PRN PRN Reason: LINE FLUSH Review of Systems Constitutional: no fever, no chills Ears, nose, mouth and throat: no headache, no vertigo Cardiovascular: no chest pain, no palpitations Respiratory: no cough, no shortness of breath Gastrointestinal: abdominal pain, nausea, vomiting, no diarrhea Genitourinary Female: no dysuria, no hematuria Musculoskeletal: no neck pain, no low back pain Integumentary: no rash, no pruritis Neurological: no headaches, no change in mentation Exam - Constitutional Vitals: Temp Pulse Resp BP Pulse Ox 97.5 F L 15 158/88 08/10/19 01:53 08/10/19 01:53 08/10/19 01:53 General appearance: Present: no acute distress, well-nourished, obese (Morbidly obese) - EENT Eyes: Present: PERRL, EOM intact ENT: hearing intact, clear oral mucosa, dentition normal - Neck Neck: Present: supple, normal ROM - Respiratory Respiratory effort: normal Respiratory: bilateral: CTA - Cardiovascular Rhythm: regular Heart Sounds: Present: S1 & S2 - Extremities Extremities: no ischemia, pulses intact, No edema, Full ROM Peripheral Pulses: within normal limits - Abdominal General gastrointestinal: Present: soft, tender (Tenderness in the epigastric and periumbilical region.), distended, hypoactive bowel sounds - Integumentary Integumentary: Present: clear, warm, dry - Musculoskeletal Musculoskeletal: strength equal bilaterally - Psychiatric Psychiatric: appropriate mood/affect, intact judgment & insight, cooperative - Neurologic Neurologic: CNII-XII intact, moves all extremities Results - Labs CBC & Chem 7: 08/10/19 01:01 08/10/19 01:01 Labs: Abnormal lab results 08/10/19 08/10/19 Range/Units 01:01 01:01 WBC 11.4 H (4.5-11.0) K/mm3 MCV 75 L (79-97) fl MCH 25 L (28-32) pg RDW 19.8 H (13.2-15.2) % Plt Count 494 H (140-440) K/mm3 Lymph % (Auto) 9.2 L (13.4-35.0) % Lymph # 1.1 L (1.2-5.4) K/mm3 Seg Neutrophils % 84.9 H (40.0-70.0) % Seg Neutrophils # 9.7 H (1.8-7.7) K/mm3 Sodium 135 L (137-145) mmol/L Chloride 94.7 L (98-107) mmol/L Creatinine 0.6 L (0.7-1.2) mg/dL Glucose 337 H (65-100) mg/dL Total Protein 8.5 H (6.3-8.2) g/dL Albumin 3.8 L (3.9-5) g/dL Lipase 11 L (13-60) units/L Assessment and Plan - Patient Problems (1) Small bowel obstruction Current Visit: Yes Status: Acute Plan to address problem: Patient has been placed n.p.o. We will place a consult to general surgery for evaluation and recommendation. (2) Hyperglycemia Current Visit: Yes Status: Acute Plan to address problem: We will monitor Accu-Cheks and place patient on sliding scale insulin. (3) Morbid obesity with BMI of 70 and over, adult Current Visit: Yes Status: Chronic Plan to address problem: We will place dietary consult for evaluation (4) DVT prophylaxis Current Visit: No Status: Acute Plan to address problem: Patient on anticoagulation. (5) Full code status Current Visit: Yes Status: Acute
[2019-08-10] MEDS ORDERED: INSULIN REGULAR, HUMAN 100 UNITS/1 ML ONE (06:09)
--- NOTE | 2019-08-10 08:43 | Event Note ---
Date: 08/10/19 Patient seen and examined. This is a follow-up from an admission earlier this morning. We will continue to plan as outlined in H&P. Total visit time equals 35 minutes with greater than 50% spent on coordination of care and counseling.
[2019-08-10] MEDS: INSULIN LISPRO 100 UNIT/ML SUB-Q SCH ×4 (09:03→23:45)
--- NOTE | 2019-08-10 10:33 | Consultation ---
History of Present Illness Consult date: 08/10/19 Reason for consult: abdominal pain Chief complaint: Abdominal pain - History of present illness History of present illness: 48-year-old female with a history of morbid obesity who presents to the emergenc y room last night for 1 day of supraumbilical abdominal pain. Pain is sharp and does not radiate. The patient has had an episode of pain like this in the past, most recently 1 month ago where she was admitted to an outside hospital for a small bowel obstruction. This was treated conservatively with an NG tube and bowel rest and she did eventually improve. The patient states that the pain is mild to moderate in severity. It is associated with nausea and she did have an episode of nonbilious nonbloody emesis yesterday. Since then she has not vomited. She has been having bowel movements but does not report flatus. An NG tube was placed in the emergency room but the patient states it fell out. The patient surgical history significant for a laparoscopic appendectomy, laparoscopic cholecystectomy, laparoscopic ventral hernia repair, diagnostic laparoscopy with lysis of adhesions and partial mesh excision for a complete small bowel obstruction in 2018. All of the surgeries were [place] of [place]. The patient states that she was being evaluated for bariatric surgery a few years ago and and her last stages of clearance, she developed a pulmonary embolism for which she was started on anticoagulation. The patient states that she is on Eliquis and has been told she will need to continue this for life. Past History Past Medical History: diabetes, heart failure, hypertension, other (Asthma, history of PE in the past, morbid obesity) Past Surgical History: appendectomy, cholecystectomy, hernia repair (Hernia repair), Other (Tubal ligation, robotic laparoscopy,) Social history: no significant social history Family history: no significant family history Medications and Allergies Allergies Allergy/AdvReac Type Severity Reaction Status Date / Time vancomycin Allergy Anaphylaxis Verified 05/13/19 04:42 IVP dye Allergy Hives Uncoded 05/13/19 04:33 Home Medications Medication Instructions Recorded Confirmed Last Taken Type Albuterol INH(or & Nicu Only) 2 puff IH QID PRN 05/13/19 05/13/19 05/12/19 History [ProAir HFA Inhaler] Fluticasone/Vilanterol [Breo 1 each IH QDAY 05/13/19 05/13/19 05/12/19 History Ellipta 200-25 Mcg INH] Gabapentin 300 mg PO Q8HR 05/13/19 05/13/19 05/12/19 History Insulin Aspart (Nf) [NovoLOG 40 units SQ BID 05/13/19 05/13/19 05/12/19 History Flexpen] Losartan [Cozaar] 100 mg PO QDAY 05/13/19 05/13/19 Unknown History Semaglutide [Ozempic] 0.25 mg SQ 1XW 05/13/19 05/13/19 Unknown History amLODIPine 10 mg PO DAILY 05/13/19 05/13/19 05/12/19 History hydrALAZINE [Apresoline TAB] 25 mg PO Q8HR 05/13/19 05/13/19 05/12/19 History Apixaban [Eliquis] 5 mg PO BID #60 tablet 05/14/19 Unknown Rx Arformoterol Nebu [Brovana Nebu] 15 mcg IH Q12HRT ml 05/14/19 Unknown Rx Gabapentin 300 mg PO Q8HR capsule 05/14/19 Unknown Rx Insulin Degludec [Tresiba 50 unit SQ QHS #5 pen 05/14/19 Unknown Rx Flextouch U-200] Losartan [Cozaar] 100 mg PO QDAY tablet 05/14/19 Unknown Rx Torsemide [Demadex] 20 mg PO BID #60 05/14/19 Unknown Rx amLODIPine 10 mg PO DAILY tablet 05/14/19 Unknown Rx carvediloL [Coreg] 12.5 mg PO BID tablet 05/14/19 Unknown Rx cefUROXime [Ceftin] 500 mg PO Q12H #16 tablet 05/14/19 Unknown Rx oxyCODONE /ACETAMINOPHEN [Percocet 1 tab PO Q6H PRN #12 tablet 05/14/19 Unknown Rx 5/325 mg] oxyCODONE [roxiCODONE] 5 mg PO Q6HR PRN #20 tablet 05/14/19 Unknown Rx Active Meds: Active Medications Acetaminophen (Tylenol) 650 mg PO Q4H PRN PRN Reason: Pain MILD(1-3)/Fever >100.5/SAINZ Dextrose (D50w (25gm) Syringe) 50 ml IV Q30MIN PRN; Protocol PRN Reason: Hypoglycemia Sodium Chloride (Nacl 0.9% 1000 Ml) 1,000 mls @ 75 mls/hr IV ONCE ONE Stop: 08/10/19 16:10 Last Admin: 08/10/19 03:30 Dose: 75 mls/hr Documented by: Insulin Human Lispro (Humalog) 0 unit SUB-Q ACHS [facility]; Protocol Last Admin: 08/10/19 09:03 Dose: 6 unit Documented by: Morphine Sulfate (Morphine) 2 mg IV Q4H PRN PRN Reason: Pain, Moderate (4-6) Ondansetron HCl (Zofran) 4 mg IV Q8H PRN PRN Reason: Nausea And Vomiting Sodium Chloride (Sodium Chloride Flush Syringe 10 Ml) 10 ml IV BID [facility] Last Admin: 08/10/19 09:04 Dose: 10 ml Documented by: Sodium Chloride (Sodium Chloride Flush Syringe 10 Ml) 10 ml IV PRN PRN PRN Reason: LINE FLUSH Review of Systems All systems: negative (10 point review systems was performed and negative except for that listed in HPI) Exam Vital Signs Temp Resp BP 97.5 F L 15 158/88 08/10/19 01:53 08/10/19 01:53 08/10/19 01:53 Narrative exam: Gen.: Awake, alert, oriented 3. No apparent distress ENT: Trachea midline. No lymphadenopathy. No scleral icterus or conjunctival pallor CV: S1, S2 present Respiratory: No audible wheezes Abdomen: Soft, morbid obesity, nondistended, mild supraumbilical tenderness to palpation. There are several well-healed surgical scars on the patient's abdomen. There is a reducible supraumbilical incisional hernia, without skin changes, with moderate tenderness to palpation during reduction. No rebound, rigidity, guarding Extremities: No clubbing, cyanosis, edema Results - Labs 08/10/19 01:01 08/10/19 01:01 Abnormal lab results 08/10/19 08/10/19 08/10/19 Range/Units 01:01 01:01 06:10 WBC 11.4 H (4.5-11.0) K/mm3 MCV 75 L (79-97) fl MCH 25 L (28-32) pg RDW 19.8 H (13.2-15.2) % Plt Count 494 H (140-440) K/mm3 Lymph % (Auto) 9.2 L (13.4-35.0) % Lymph # 1.1 L (1.2-5.4) K/mm3 Seg Neutrophils % 84.9 H (40.0-70.0) % Seg Neutrophils # 9.7 H (1.8-7.7) K/mm3 Sodium 135 L (137-145) mmol/L Chloride 94.7 L (98-107) mmol/L Creatinine 0.6 L (0.7-1.2) mg/dL Glucose 337 H (65-100) mg/dL POC Glucose 324 H (70-105) Total Protein 8.5 H (6.3-8.2) g/dL Albumin 3.8 L (3.9-5) g/dL Lipase 11 L (13-60) units/L 08/10/19 Range/Units 08:08 WBC (4.5-11.0) K/mm3 MCV (79-97) fl MCH (28-32) pg RDW (13.2-15.2) % Plt Count (140-440) K/mm3 Lymph % (Auto) (13.4-35.0) % Lymph # (1.2-5.4) K/mm3 Seg Neutrophils % (40.0-70.0) % Seg Neutrophils # (1.8-7.7) K/mm3 Sodium (137-145) mmol/L Chloride (98-107) mmol/L Creatinine (0.7-1.2) mg/dL Glucose (65-100) mg/dL POC Glucose 330 H (70-105) Total Protein (6.3-8.2) g/dL Albumin (3.9-5) g/dL Lipase (13-60) units/L Diabetes panel 08/10/19 Range/Units 01:01 Sodium 135 L (137-145) mmol/L Potassium 4.4 (3.6-5.0) mmol/L Chloride 94.7 L (98-107) mmol/L Carbon Dioxide 22 (22-30) mmol/L BUN 17 (7-17) mg/dL Creatinine 0.6 L (0.7-1.2) mg/dL Glucose 337 H (65-100) mg/dL Calcium 10.0 (8.4-10.2) mg/dL AST 14 (5-40) units/L ALT 11 (7-56) units/L Alkaline Phosphatase 81 (35-129) units/L Total Protein 8.5 H (6.3-8.2) g/dL Albumin 3.8 L (3.9-5) g/dL Calcium panel 08/10/19 Range/Units 01:01 Calcium 10.0 (8.4-10.2) mg/dL Albumin 3.8 L (3.9-5) g/dL Pituitary panel 08/10/19 Range/Units 01:01 Sodium 135 L (137-145) mmol/L Potassium 4.4 (3.6-5.0) mmol/L Chloride 94.7 L (98-107) mmol/L Carbon Dioxide 22 (22-30) mmol/L BUN 17 (7-17) mg/dL Creatinine 0.6 L (0.7-1.2) mg/dL Glucose 337 H (65-100) mg/dL Calcium 10.0 (8.4-10.2) mg/dL Adrenal panel 08/10/19 Range/Units 01:01 Sodium 135 L (137-145) mmol/L Potassium 4.4 (3.6-5.0) mmol/L Chloride 94.7 L (98-107) mmol/L Carbon Dioxide 22 (22-30) mmol/L BUN 17 (7-17) mg/dL Creatinine 0.6 L (0.7-1.2) mg/dL Glucose 337 H (65-100) mg/dL Calcium 10.0 (8.4-10.2) mg/dL Total Bilirubin 0.50 (0.1-1.2) mg/dL AST 14 (5-40) units/L ALT 11 (7-56) units/L Alkaline Phosphatase 81 (35-129) units/L Total Protein 8.5 H (6.3-8.2) g/dL Albumin 3.8 L (3.9-5) g/dL - Imaging Abdominal x-ray: report reviewed, image reviewed CT scan - abdomen: report reviewed, image reviewed CT scan - pelvis: report reviewed, image reviewed Assessment and Plan 48-year-old female with 1. Partial small bowel obstruction 2. Reducible incisional hernia 3. Morbid obesity 4. Diabetes -poorly controlled 5. History of PE on Eliquis Plan: 1. replace NGT - keep to LIWS 2. strict I/Os 3. NPO, ok to have ice chips once NGT is replaced 4. prn pain control 5. OOB/ambulate - PT consult 6. Pt is a poor surgical candidate for elective hernia repair. I discussed this with her in great detail. Her underlying conditions such as morbid obesity, poorly controlled DM, hx of PE on eliquis make her high risk for david and post op surgical complications/morbidity and for hernia recurrence. Patient's hernia was able to be reduced. If the patient's pSBO resolves with conservative management, will refer to bariatric surgeon at tertiary care hospital upon dis charge. Weight loss will be imperative for the patient. Thank you, please call with questions. Evaluation and treatment of this patient was during the time of the national and state emergency arising from COVID19 coronavirus pandemic. Treatment and procedures performed meet the current and available best practice and guidelines for patient during the COVID pandemic.
[2019-08-10] MEDS: MORPHINE 2 MG/1 ML INJ IV PRN ×2 (12:15→16:15)
[2019-08-10] MEDS: ONDANSETRON 4 MG/2 ML INJ IV PRN (12:15)
--- NOTE | 2019-08-10 14:02 | XRay Report ---
ABDOMEN 1 VIEW(S) INDICATION: NGT placement COMPARISON: None available. FINDINGS: There is Dobbhoff tube has tip in the stomach Bowel gas pattern: Within normal limits. No dilated loops of large or small bowel. Free air: None. Calcified gallstones: None seen. Calcified urinary tract calculi: None seen. Additional Findings: None. Skeletal structures: No acute abnormality. IMPRESSION: 1. No acute findings. Signer Name: Mervin Vazquez MD Signed: 08/10/2019 1:57 PM Workstation Name: [id number]
[2019-08-10] MEDS ORDERED: HYDROmorphone 2 MG/1 ML INJ IV ONE (21:00)
[2019-08-11] MEDS ORDERED: HYDROmorphone 1 MG/1 ML INJ IV ONE (04:44)
[2019-08-11 05:39] LABS: Basophils % (Auto) 0.3 % (0.0-1.8); Eosinophils # (Auto) 0.3 K/mm3 (0.0-0.4); Eosinophils % (Auto) 4.4 % (0.0-4.3); Hematocrit 36.3 % (30.3-42.9); Hemoglobin 11.5 gm/dl (10.1-14.3); Lymphocytes % (Auto) 14.8 % (13.4-35.0); Mean Corpuscular HGB Conc 32 % (30-34); Mean Corpuscular Volume 78 fl (79-97); Monocytes # (Auto) 0.6 K/mm3 (0.0-0.8); Monocytes % (Auto) 8.5 % (0.0-7.3); Platelet Count 457 K/mm3 (140-440); Red Blood Count 4.68 M/mm3 (3.65-5.03)
[2019-08-11 05:45] LABS: BUN/Creatinine Ratio 27; Blood Urea Nitrogen 19 mg/dL (7-17); Calcium 9.3 mg/dL (8.4-10.2); Hemolysis Index 2
[2019-08-11 05:54] LABS: INR 1.12 (0.87-1.13)
[2019-08-11 06:00] LABS: Red Cell Distribution Width 20.1 % (13.2-15.2)
[2019-08-11] MEDS: INSULIN LISPRO 100 UNIT/ML SUB-Q SCH ×4 (09:37→22:40)
--- NOTE | 2019-08-11 10:40 | Progress Note ---
History Interval history: Partial small bowel obstruction. Cont. NGT to LIS. Advance diet per Surgery. Pain control Reducible incisional hernia. Surgery following. Morbid obesity. Will refer to bariatric surgeon at tertiary care hospital upon discharge. Weight loss will be imperative for the patient. Diabetes Mellitus Type 2. Cont. SSRI and accuchecks. Tight glycemic control History of PE. Cont. on [facility] Hospitalist Physical - Constitutional Vitals: Temp Pulse Resp BP Pulse Ox 97.3 F L 99 H 18 153/73 97 08/11/19 07:22 08/11/19 07:22 08/11/19 07:22 08/11/19 07:22 08/11/19 07:22 General appearance: Present: no acute distress, well-nourished, obese (Morbidly obese) Results - Labs CBC & Chem 7: 08/11/19 05:03 08/11/19 05:03 Labs: Laboratory Last Values WBC 6.9 K/mm3 (4.5-11.0) 08/11/19 05:03 RBC 4.68 M/mm3 (3.65-5.03) 08/11/19 05:03 Hgb 11.5 gm/dl (10.1-14.3) 08/11/19 05:03 Hct 36.3 % (30.3-42.9) 08/11/19 05:03 MCV 78 fl (79-97) L 08/11/19 05:03 MCH 25 pg (28-32) L 08/11/19 05:03 MCHC 32 % (30-34) 08/11/19 05:03 RDW 20.1 % (13.2-15.2) H 08/11/19 05:03 Plt Count 457 K/mm3 (140-440) H 08/11/19 05:03 Lymph % (Auto) 14.8 % (13.4-35.0) 08/11/19 05:03 [place] % (Auto) 8.5 % (0.0-7.3) H 08/11/19 05:03 Eos % (Auto) 4.4 % (0.0-4.3) H 08/11/19 05:03 Baso % (Auto) 0.3 % (0.0-1.8) 08/11/19 05:03 Lymph # 1.0 K/mm3 (1.2-5.4) L 08/11/19 05:03 [place] # 0.6 K/mm3 (0.0-0.8) 08/11/19 05:03 Eos # 0.3 K/mm3 (0.0-0.4) 08/11/19 05:03 Baso # 0.0 K/mm3 (0.0-0.1) 08/11/19 05:03 Seg Neutrophils % 72.0 % (40.0-70.0) H 08/11/19 05:03 Seg Neutrophils # 5.0 K/mm3 (1.8-7.7) 08/11/19 05:03 PT 14.5 Sec. (12.2-14.9) 08/11/19 05:03 INR 1.12 (0.87-1.13) 08/11/19 05:03 Sodium 138 mmol/L (137-145) 08/11/19 05:03 Potassium 4.3 mmol/L (3.6-5.0) 08/11/19 05:03 Chloride 102.2 mmol/L (98-107) 08/11/19 05:03 Carbon Dioxide 24 mmol/L (22-30) 08/11/19 05:03 Anion Gap 16 mmol/L 08/11/19 05:03 BUN 19 mg/dL (7-17) H 08/11/19 05:03 Creatinine 0.7 mg/dL (0.7-1.2) 08/11/19 05:03 Estimated GFR > 60 ml/min 08/11/19 05:03 BUN/Creatinine Ratio 27 % 08/11/19 05:03 Glucose 317 mg/dL (65-100) H 08/11/19 05:03 POC Glucose 301 (70-105) H 08/10/19 12:16 Calcium 9.3 mg/dL (8.4-10.2) 08/11/19 05:03 Total Bilirubin 0.50 mg/dL (0.1-1.2) 08/10/19 01:01 Direct Bilirubin < 0.2 mg/dL (0-0.2) 08/10/19 01:01 Indirect Bilirubin 0.3 mg/dL 08/10/19 01:01 AST 14 units/L (5-40) 08/10/19 01:01 ALT 11 units/L (7-56) 08/10/19 01:01 Alkaline Phosphatase 81 units/L (35-129) 08/10/19 01:01 Total Protein 8.5 g/dL (6.3-8.2) H 08/10/19 01:01 Albumin 3.8 g/dL (3.9-5) L 08/10/19 01:01 Albumin/Globulin Ratio 0.8 % 08/10/19 01:01 Lipase 11 units/L (13-60) L 08/10/19 01:01 Bob/IV: Voiding Method Toilet IV Catheter Type [Left Peripheral IV Antecubital] Active Medications - Current Medications Current Medications: Generic Name Dose Route Start Last Admin Trade Name Freq PRN Reason Stop Dose Admin Acetaminophen 650 mg 08/10/19 04:44 Tylenol PO Q4H PRN Pain MILD(1-3)/Fever >100.5/SAINZ Dextrose 50 ml 08/10/19 04:44 D50w (25gm) Syringe IV Q30MIN PRN Hypoglycemia Protocol Sodium Chloride 1,000 mls @ 75 mls/hr 08/10/19 21:33 08/10/19 22:23 Nacl 0.9% 1000 Ml IV 08/11/19 10:52 75 mls/hr ONCE ONE Administration Insulin Human Lispro 0 unit 08/10/19 07:30 08/11/19 09:37 Humalog SUB-Q 4 unit ACHS JULITA Administration Protocol Morphine Sulfate 2 mg 08/10/19 04:44 08/10/19 16:15 Morphine IV 2 mg Q4H PRN Administration Pain, Moderate (4-6) Ondansetron HCl 4 mg 08/10/19 04:44 08/10/19 12:15 Zofran IV 4 mg Q8H PRN Administration Nausea And Vomiting Sodium Chloride 10 ml 08/10/19 10:00 08/10/19 23:25 Sodium Chloride Flush Syringe 10 Ml IV 10 ml BID JULITA Administration Sodium Chloride 10 ml 08/10/19 04:44 Sodium Chloride Flush Syringe 10 Ml IV PRN PRN LINE FLUSH
[2019-08-11] MEDS ORDERED: D5W/0.9% NACL 1,000 ML IV SCH (11:00)
[2019-08-11] MEDS: MORPHINE 2 MG/1 ML INJ IV PRN (11:07)
--- NOTE | 2019-08-11 11:28 | Progress Note ---
Assessment and Plan 48-year-old female with 1. Partial small bowel obstruction 2. Reducible incisional hernia 3. Morbid obesity 4. Diabetes -poorly controlled 5. History of PE on Eliquis Plan: 1. Dobbhoff was removed and I personally replaced an NG tube. An 18 Bulgarian NG tube was passed through the left nare without difficulty and positioning confi rmed with auscultation as well as abdominal x-ray. Light bilious fluid mixed with clear liquid was aspirated. Continue NG tube to low intermittent wall suction. 2. strict I/Os 3. NPO, ok to have ice chips 4. prn pain control -IV Dilaudid 5. OOB/ambulate - PT consult 6. Due to the patient's body habitus, abdominal exam and palpation of the hernia is difficult. Although the patient did get relief after the hernia was reduced, reevaluation pSBO with CT scan of the abdomen and pelvis with oral c ontrast will be very helpful. Abdominal x-rays thus far have shown a normal bowel gas pattern. 7. Further recs pending repeat CT A/P results 8. DVT ppx. continue to hold eliquis Pt is a poor surgical candidate for elective hernia repair. I discussed this with her in great detail. Her underlying conditions such as morbid obesity, poorly controlled DM, hx of PE on eliquis make her high risk for david and post op surgical complications/morbidity and for hernia recurrence. Patient's hernia was able to be reduced. If the patient's pSBO resolves with conservative management, will refer to bariatric surgeon at tertiary care hospital upon discharge. Weight loss will be imperative for the patient. Thank you, please call with questions. Evaluation and treatment of this patient was during the time of the national and state emergency arising from COVID19 coronavirus pandemic. Treatment and procedures performed meet the current and available best practice and guidelines for patient during the COVID pandemic. Subjective Date of service: 08/11/19 Narrative: Patient seen and examined. Complaining of severe epigastric and mid abdominal pain. No nausea or vomiting. Yesterday an NG tube was ordered to be placed, however a Dobbhoff was placed by nursing. This is been hooked to suction since yesterday and there is been minimal bilious output. The patient states she is not passing flatus or having any bowel movements. She states that morphine does not help with her pain, but Dilaudid helps significantly. No fevers, chills. Objective Vital Signs - 12hr 08/11/19 08/11/19 08/11/19 00:22 04:32 04:42 Temperature 97.4 F L 98.2 F Pulse Rate 95 H 98 H Respiratory 18 18 18 Rate Blood Pressure 123/73 152/93 O2 Sat by Pulse 88 98 Oximetry 08/11/19 07:22 Temperature 97.3 F L Pulse Rate 99 H Respiratory 18 Rate Blood Pressure 153/73 O2 Sat by Pulse 97 Oximetry - General physical appearance Narrative Exam: Gen.: Awake, alert, oriented 3. Moderate distress due to abdominal pain ENT: Trachea midline. No lymphadenopathy. No scleral icterus or conjunctival pallor CV: S1, S2 present Respiratory: No audible wheezes Abdomen: Soft, nondistended, positive tenderness to palpation in the supraumbilical region. Hernia palpable, and was reduced. No rebound, rigidity, guarding Extremities: No clubbing, cyanosis, edema - Labs 08/11/19 05:03 08/11/19 05:03 Diabetes panel 08/11/19 Range/Units 05:03 Sodium 138 (137-145) mmol/L Potassium 4.3 (3.6-5.0) mmol/L Chloride 102.2 (98-107) mmol/L Carbon Dioxide 24 (22-30) mmol/L BUN 19 H (7-17) mg/dL Creatinine 0.7 (0.7-1.2) mg/dL Glucose 317 H (65-100) mg/dL Calcium 9.3 (8.4-10.2) mg/dL Calcium panel 08/11/19 Range/Units 05:03 Calcium 9.3 (8.4-10.2) mg/dL Pituitary panel 08/11/19 Range/Units 05:03 Sodium 138 (137-145) mmol/L Potassium 4.3 (3.6-5.0) mmol/L Chloride 102.2 (98-107) mmol/L Carbon Dioxide 24 (22-30) mmol/L BUN 19 H (7-17) mg/dL Creatinine 0.7 (0.7-1.2) mg/dL Glucose 317 H (65-100) mg/dL Calcium 9.3 (8.4-10.2) mg/dL Adrenal panel 05/15/20 Range/Units 05:03 Sodium 138 (137-145) mmol/L Potassium 4.3 (3.6-5.0) mmol/L Chloride 102.2 (98-107) mmol/L Carbon Dioxide 24 (22-30) mmol/L BUN 19 H (7-17) mg/dL Creatinine 0.7 (0.7-1.2) mg/dL Glucose 317 H (65-100) mg/dL Calcium 9.3 (8.4-10.2) mg/dL
[2019-08-11] MEDS ORDERED: HYDROmorphone 1 MG/1 ML INJ IM STA (12:17)
[2019-08-11] MEDS: ENOXAPARIN 40 MG/0.4 ML INJ SUB-Q SCH (12:22)
--- NOTE | 2019-08-11 13:49 | XRay Report ---
ABDOMEN 1 VIEW INDICATION / CLINICAL INFORMATION: NGT positioning. COMPARISON: KUB from 08/10/2019. FINDINGS: This study is limited by portable technique and the patient's body habitus. TUBES / LINES: An NG tube terminates over the distal gastric body. BOWEL GAS PATTERN: There is nonspecific mild small bowel dilatation along the left mid to lower abdom en. FREE AIR / EXTRALUMINAL GAS: None seen. ADDITIONAL FINDINGS: No significant additional findings. IMPRESSION: Satisfactory positioning of the NG tube with a nonspecific bowel gas pattern as above. Signer Name: Justin Handy MD Signed: 08/11/2019 1:45 PM Workstation Name: [id number]
[2019-08-11 14:36] LABS: Bilirubin,Urine NEG (Negative); Blood,Urine MOD (Negative); Color,Urine Yellow (Yellow); Mucus,Urine FEW /HPF; Protein,Urine <15 mg/dL mg/dL (Negative); Urobilinogen,Urine < 2.0 mg/dL (<2.0)
--- NOTE | 2019-08-11 16:53 | Cat Scan Report ---
CT ABDOMEN AND PELVIS WITHOUT CONTRAST INDICATION: Abdominal pain. Follow-up of small bowel obstruction. COMPARISON: CT abdomen and pelvis without contrast from 08/10/2019. TECHNIQUE: Axial, coronal and sagittal CT imaging of the abdomen and pelvis was performed without co ntrast. Lack of intravenous contrast limits evaluation of the vascular and solid organs. All CT sca ns at this location are performed using CT dose reduction for ALARA by means of automated exposure co ntrol. FINDINGS: The study is limited by the patient's body habitus and exclusion of the anterior abdomen, despite rep eat scanning. LOWER CHEST: No significant abnormality. LIVER: No significant abnormality. BILIARY: Prior cholecystectomy. No biliary ductal dilatation. PANCREAS: No significant abnormality. SPLEEN: No significant abnormality. ADRENALS: No significant abnormality. KIDNEYS AND URETERS: No significant abnormality. GI TRACT: The previously described mild small bowel dilatation is unchanged. The previously described umbilical hernia is not well-visualized. No significant abnormality of the stomach or colon. An NG t ube terminates along the distal gastric body. The appendix is surgically absent. PERITONEUM: No free fluid. No free air. No fluid collection. LYMPH NODES: No significant adenopathy. VASCULATURE: No significant abnormality. URINARY BLADDER: No significant abnormality. REPRODUCTIVE ORGANS: A lobulated soft tissue density structure along the midline of the pelvis may re present an enlarged uterus secondary to the presence of multiple fibroids. No additional significant abnormality. ADDITIONAL FINDINGS: None. SKELETAL SYSTEM: No acute abnormality. IMPRESSION: 1. Limited exam demonstrating similar findings of at least a partial small bowel obstruction compared to the prior CT from 08/10/2019. 2. Additional findings as above. Signer Name: Justin Handy MD Signed: 08/11/2019 4:49 PM Workstation Name: [id number]
--- NOTE | 2019-08-11 17:10 | Event Note ---
Date: 08/11/19 Pt reevaluated. Continues to complain of severe supraumbilical pain. It is only improved after she gets dilaudid IV. Repeat CT scan A/P images and report reviewed. Persistent SBO due to supraumbilical incisional hernia. NGT in place with bilious output Due to the CT findings, patient's pain in the location of the hernia, and inability to reliably reduce hernia at bedside due to patient body habitus - I recommend OR for hernia reduction, evaluation of the incarcerated bowel, and hernia repair. I discussed this in detail with the patient and her daughter over the telephone. I explained that the patient is at increased risk for surgery and anesthesia due to her comorbid conditions. They understand. All risks, benefits, alternatives to surgery discussed with them. All questions answered. Consent obtained for diagnostic laparoscopy, possible exploratory laparotomy, reduction of hernia, possible bowel resection, possible mesh. Will proceed to OR tonight. Preop abx ordered. Continue NPO, IVF.
[2019-08-11] MEDS: HYDROmorphone 1 MG/1 ML INJ IV PRN (17:12)
[2019-08-11] MEDS: ONDANSETRON 4 MG/2 ML INJ IV PRN (17:25)
[2019-08-11] MEDS ORDERED: metroNIDAZOLE/NS 500 MG/100 ML 500 MG/100 ML BAG IV NR (18:00)
--- NOTE | 2019-08-11 18:13 | Anesthesia Consultation ---
Anesthesia Consult and Med Hx Date of service: 08/11/19 - Airway Anesthetic Teeth Evaluation: Good ROM Head & Neck: Adequate Mental/Hyoid Distance: Adequate Mallampati Class: Class I Intubation Access Assessment: Possibly Difficult (large body habitus) - Pulmonary Exam CTA: Yes - Cardiac Exam Cardiac Exam: RRR - Pre-Operative Health Status ASA Pre-Surgery Classification: ASA3, Emergency Proposed Anesthetic Plan: General - Pulmonary Hx Smoking: No Hx Asthma: Yes Home Oxygen Therapy: Yes (3L nocturnal) - Cardiovascular System Hx Hypertension: Yes Hx Coronary Artery Disease: No (reports LHC last year with no CAD) Hx Heart Attack/AMI: No Hx Percutaneous Transluminal Coronary Angioplasty (PTCA): No Hx Cardia Arrhythmia: No - Central Nervous System CVA: No - Gastrointestinal Hx Gastroesophageal Reflux Disease: No - Endocrine Hx Renal Disease: No Hx Liver Disease: No Hx Insulin Dependent Diabetes: Yes Hx Thyroid Disease: No - Hematic Hx Anemia: Yes - Other Systems Hx Obesity: Yes (BMI 77) - Additional Comments Anesthesia Medical History Comments: PMH BMI 77, hx PE 2018 on eliquis, asthma, HTN, IDDM, home O2 with SBO 2/2 hernia scheduled for emergent repair. She has hx delayed emergence after a previous surgery. She reports have LHC done last year with no CAD and normal heart function however chart review mentions diagnosis of CHF (no TTE or LHC records available for review). She reports compliance with eliquis (last dose 2 days ago) and she received prophylactic anticogulation today. HD stable, normal SpO2 on room air, elevated glucose which is being treated with SSI while inpatient. Discussed risk of respiratory failure requiring post op mechanical ventilation, periop OK, DVT/PE and other risks associated with planned surgical procedure and anesthetic. Patient verbalized understanding of these risks and consents to anesthesia. Plan GETA/RSI, stnd ASA monitors +/- a-line, possible post op ventilation and ICU admission.
--- NOTE | 2019-08-11 18:23 | Anesthesia Day of Surgery ---
Anesthesia Day of Surgery - Day of Surgery Patient Examined: Yes Patient H&P Reviewed: Yes Patient is NPO: Yes
[2019-08-11] MEDS ORDERED: SUCCINYLCHOLINE CHLORIDE 200 MG/10 ML INJ MDV ONE (19:50)
[2019-08-11] MEDS ORDERED: fentaNYL 250 MCG/5 ML INJ ONE (19:50)
[2019-08-11] MEDS ORDERED: LACTATED RINGERS 1,000 ML ONE ×3 (19:50→22:28)
[2019-08-11] MEDS ORDERED: propofoL 200 MG/20 ML VIAL IV ONE ×2 (19:50→19:51)
[2019-08-11] MEDS ORDERED: ROCURONIUM 50 MG/5 ML INJ IV ONE (19:50)
[2019-08-11] MEDS ORDERED: LIDOCAINE MPF (2%) 20 MG/1 ML VIAL 5 ML ONE ×2 (19:50→19:54)
[2019-08-11] MEDS ORDERED: LIDOCAINE (1%) 10 MG/1 ML VIAL 20 ML MDV ONE (20:23)
[2019-08-11] MEDS ORDERED: BUPIVACAINE/PF (0.25%) 2.5 MG/ML 30 ML VIAL INFILTRATI ONE ×3 (20:23→20:39)
[2019-08-11] MEDS ORDERED: LIDOCAINE (1%) 10 MG/1 ML VIAL 20 ML MDV INFILTRATI ONE ×2 (20:39)
[2019-08-11] MEDS ORDERED: SODIUM CHLORIDE 0.9% IRR 1,000 ML BOTTLE IR ONE (20:40)
[2019-08-11] MEDS ORDERED: ONDANSETRON 4 MG/2 ML INJ IV PRN (20:44)
[2019-08-11] MEDS ORDERED: fentaNYL 100 MCG/2 ML INJ IV PRN (20:44)
[2019-08-11] MEDS ORDERED: ONDANSETRON 4 MG/2 ML INJ ONE (21:20)
[2019-08-11] MEDS ORDERED: PHENYLEPHRINE/NS 1,000 MCG/10 ML SYRINGE (OR USE) IV ONE (22:03)
[2019-08-11] MEDS ORDERED: NEOSTIGMINE 10MG/10 ML INJ MDV ONE (22:04)
[2019-08-11] MEDS ORDERED: GLYCOPYRROLATE 0.4 MG/2 ML INJ ONE (22:04)
--- NOTE | 2019-08-11 22:35 | Post Operative Note ---
Pre-op diagnosis: incarcerated incisional hernia, small bowel obstruction Post-op diagnosis: same Findings: 1. 2.5 cm supraumbilical incisional hernia 2. chronically incarcerated small bowel, reduced and viable 3. old mesh 4. dense small bowel and omental adhesions to anterior abdominal wall Procedure: diagnostic laparoscopy, open reduction of incarcerated incisional hernia, lysis of adhesions and primary fascial closure Anesthesia: GETA, local Surgeon: LIZBETH ALLEN Performance Instructor: ANISHA ARTHUR Estimated blood loss: minimal Pathology: list (hernia sac) Specimen disposition: to lab Condition: stable Disposition: PACU
[2019-08-11] MEDS ORDERED: ALBUTEROL 2.5 MG/3 ML NEBU IH ONE ×2 (22:40)
[2019-08-11] MEDS ORDERED: INSULIN LISPRO 100 UNIT/ML SUB-Q ONE (22:40)
--- NOTE | 2019-08-12 00:07 | Post Anesthesia Evaluation ---
- Post Anesthesia Evaluation Patient Participated: Yes Airway Patent: Yes Stable Respiratory Function: Yes (returned to baseline 3L NC) Nausea/Vomiting: No Temp > 96.8F: Yes Pain Manageable: Yes Adequeate Hydration: Yes Anesthesia Complications: No Other Comments: Transfer back to floor with continuous pulse ox monitoring and CONI protocol.
[2019-08-12] MEDS: HYDROmorphone 1 MG/1 ML INJ IV PRN ×6 (00:59→21:22)
[2019-08-12] MEDS ORDERED: LIP THERAPY VASELINE TP PRN (05:06)
[2019-08-12] MEDS: ONDANSETRON 4 MG/2 ML INJ IV PRN (09:43)
[2019-08-12] MEDS: INSULIN LISPRO 100 UNIT/ML SUB-Q SCH ×4 (09:44→23:17)
[2019-08-12] MEDS: ENOXAPARIN 40 MG/0.4 ML INJ SUB-Q SCH (09:45)
--- NOTE | 2019-08-12 10:02 | Progress Note ---
Assessment and Plan Assessment and plan: Partial small bowel obstruction. Reducible incisional hernia. Surgery following. Morbid obesity. Will refer to bariatric surgeon at tertiary care hospital upon discharge. Weight loss will be imperative for the patient. Diabetes Mellitus Type 2. Cont. SSRI and accuchecks. Tight glycemic control History of PE. Cont. on Eliquis 08/12/2019. The patient was taken to the OR on 08/11/2019 diagnostic laparoscopy and found to have incarcerated incisional hernia and small bowel obstruction. Patient had open reduction of incarcerated incisional hernia, lysis of adhesions and primary fascial closure. Continue with supportive care with IV fluid hydration. Advance diet per surgery recommendations. PT/OT History Interval history: 48-year-old female with a history of morbid obesity who presents to the emergency room on 08/10/2019 with 1 day of supraumbilical abdominal pain. The patient surgical history significant for a laparoscopic appendectomy, laparoscopic cholecystectomy, laparoscopic ventral hernia repair, diagnostic laparoscopy with lysis of adhesions and partial mesh excision for a complete small bowel obstruction in 2018. [place]. The patient states that she was being evaluated for bariatric surgery a few years ago and and her last stages of clearance, she developed a pulmonary embolism for which she receives anticoagulation with Eliquis indefinitely. The patient was admitted with diagnosis of partial small bowel obstruction and hernia. The patient was evaluated by surgery in consultation. Patient initially had the hernia reduced by surgery. However, patient continued to have abdominal pain. The patient was taken to the OR and had diagnostic laparoscopy. Hospitalist Physical - Constitutional Vitals: Temp Pulse Resp BP Pulse Ox 98.5 F 111 H 18 135/51 94 08/12/19 06:06 08/12/19 06:06 08/12/19 06:09 08/12/19 06:06 08/12/19 06:06 General appearance: Present: no acute distress, well-nourished, obese (Morbidly obese) - EENT Eyes: Present: PERRL, EOM intact ENT: hearing intact, clear oral mucosa, dentition normal - Neck Neck: Present: supple, normal ROM - Respiratory Respiratory effort: normal Respiratory: bilateral: CTA - Cardiovascular Rhythm: regular Heart Sounds: Present: S1 & S2. Absent: gallop, rub - Extremities Extremities: no ischemia, No edema, Full ROM - Abdominal General gastrointestinal: soft, non-tender, non-distended, normal bowel sounds - Integumentary Integumentary: Present: clear, warm, dry - Neurologic Neurologic: CNII-XII intact, moves all extremities Results - Labs CBC & Chem 7: 08/11/19 05:03 08/11/19 05:03 Labs: Laboratory Last Values WBC 6.9 K/mm3 (4.5-11.0) 08/11/19 05:03 RBC 4.68 M/mm3 (3.65-5.03) 08/11/19 05:03 Hgb 11.5 gm/dl (10.1-14.3) 08/11/19 05:03 Hct 36.3 % (30.3-42.9) 08/11/19 05:03 MCV 78 fl (79-97) L 08/11/19 05:03 MCH 25 pg (28-32) L 08/11/19 05:03 MCHC 32 % (30-34) 08/11/19 05:03 RDW 20.1 % (13.2-15.2) H 08/11/19 05:03 Plt Count 457 K/mm3 (140-440) H 08/11/19 05:03 Lymph % (Auto) 14.8 % (13.4-35.0) 08/11/19 05:03 [place] % (Auto) 8.5 % (0.0-7.3) H 08/11/19 05:03 Eos % (Auto) 4.4 % (0.0-4.3) H 08/11/19 05:03 Baso % (Auto) 0.3 % (0.0-1.8) 08/11/19 05:03 Lymph # 1.0 K/mm3 (1.2-5.4) L 08/11/19 05:03 [place] # 0.6 K/mm3 (0.0-0.8) 08/11/19 05:03 Eos # 0.3 K/mm3 (0.0-0.4) 08/11/19 05:03 Baso # 0.0 K/mm3 (0.0-0.1) 08/11/19 05:03 Seg Neutrophils % 72.0 % (40.0-70.0) H 08/11/19 05:03 Seg Neutrophils # 5.0 K/mm3 (1.8-7.7) 08/11/19 05:03 PT 14.5 Sec. (12.2-14.9) 08/11/19 05:03 INR 1.12 (0.87-1.13) 08/11/19 05:03 Sodium 138 mmol/L (137-145) 08/11/19 05:03 Potassium 4.3 mmol/L (3.6-5.0) 08/11/19 05:03 Chloride 102.2 mmol/L (98-107) 08/11/19 05:03 Carbon Dioxide 24 mmol/L (22-30) 08/11/19 05:03 Anion Gap 16 mmol/L 08/11/19 05:03 BUN 19 mg/dL (7-17) H 08/11/19 05:03 Creatinine 0.7 mg/dL (0.7-1.2) 08/11/19 05:03 Estimated GFR > 60 ml/min 08/11/19 05:03 BUN/Creatinine Ratio 27 % 08/11/19 05:03 Glucose 317 mg/dL (65-100) H 08/11/19 05:03 POC Glucose 301 (70-105) H 08/10/19 12:16 Calcium 9.3 mg/dL (8.4-10.2) 08/11/19 05:03 Total Bilirubin 0.50 mg/dL (0.1-1.2) 08/10/19 01:01 Direct Bilirubin < 0.2 mg/dL (0-0.2) 08/10/19 01:01 Indirect Bilirubin 0.3 mg/dL 08/10/19 01:01 AST 14 units/L (5-40) 08/10/19 01:01 ALT 11 units/L (7-56) 08/10/19 01:01 Alkaline Phosphatase 81 units/L (35-129) 08/10/19 01:01 Total Protein 8.5 g/dL (6.3-8.2) H 08/10/19 01:01 Albumin 3.8 g/dL (3.9-5) L 08/10/19 01:01 Albumin/Globulin Ratio 0.8 % 08/10/19 01:01 Lipase 11 units/L (13-60) L 08/10/19 01:01 Urine Color Yellow (Yellow) 08/11/19 Unknown Urine Turbidity Clear (Clear) 08/11/19 Unknown Urine pH 5.0 (5.0-7.0) 08/11/19 Unknown Ur Specific [place] 1.012 (1.003-1.030) 08/11/19 Unknown Urine Protein <15 mg/dl mg/dL (Negative) 08/11/19 Unknown Urine Glucose (UA) >=500 mg/dL (Negative) 08/11/19 Unknown Urine Ketones 20 mg/dL (Negative) 08/11/19 Unknown Urine Blood Mod (Negative) 08/11/19 Unknown Urine Nitrite Neg (Negative) 08/11/19 Unknown Urine Bilirubin Neg (Negative) 08/11/19 Unknown Urine Urobilinogen < 2.0 mg/dL (<2.0) 08/11/19 Unknown Ur Leukocyte Esterase Neg (Negative) 08/11/19 Unknown Urine WBC (Auto) 2.0 /HPF (0.0-6.0) 08/11/19 Unknown Urine RBC (Auto) 12.0 /HPF (0.0-6.0) 08/11/19 Unknown U Epithel Cells (Auto) 3.0 /HPF (0-13.0) 08/11/19 Unknown Urine Mucus Few /HPF 08/11/19 Unknown Blood Type A POSITIVE 08/11/19 15:00 Antibody Screen Negative 08/11/19 15:00 Bob/IV: Voiding Method External Female Catheter IV Catheter Type [Left Peripheral IV Antecubital] Active Medications - Current Medications Current Medications: Generic Name Dose Route Start Last Admin Trade Name Freq PRN Reason Stop Dose Admin Acetaminophen 650 mg 08/10/19 04:44 Tylenol PO Q4H PRN Pain MILD(1-3)/Fever >100.5/SAINZ Dextrose 50 ml 08/10/19 04:44 D50w (25gm) Syringe IV Q30MIN PRN Hypoglycemia Protocol Enoxaparin Sodium 40 mg 08/11/19 12:00 08/12/19 09:45 Enoxaparin SUB-Q 40 mg DAILY JULITA Administration Fentanyl 50 mcg 08/11/19 20:44 Sublimaze IV 08/12/19 20:43 Q5MIN PRN Pain , Severe (7-10) Hydromorphone HCl 1 mg 08/11/19 11:46 05/16/20 09:43 Dilaudid IV 1 mg Q4H PRN Administration Pain , Severe (7-10) Hydrophilic Ointment 1 applic 08/12/19 05:06 08/12/19 05:41 Vaseline Lip Therapy TP 1 applic DIRECT PRN Administration Dry Lips Sodium Chloride 1,000 mls @ 75 mls/hr 08/11/19 11:00 Nacl 0.9% 1000 Ml IV DIRECT JULITA Insulin Human Lispro 0 unit 08/10/19 07:30 08/12/19 09:44 Humalog SUB-Q 3 unit ACHS JULITA Administration Protocol Labetalol HCl 10 mg 08/11/19 22:44 08/11/19 23:06 Labetalol IV 10 mg Q10MIN PRN Administration Hypertension Ondansetron HCl 4 mg 08/10/19 04:44 08/12/19 09:43 Zofran IV 4 mg Q8H PRN Administration Nausea And Vomiting Ondansetron HCl 4 mg 08/11/19 20:44 Zofran IV ONCE PRN Nausea And Vomiting Sodium Chloride 10 ml 08/10/19 10:00 08/11/19 12:28 Sodium Chloride Flush Syringe 10 Ml IV 10 ml BID JULITA Administration Sodium Chloride 10 ml 08/10/19 04:44 Sodium Chloride Flush Syringe 10 Ml IV PRN PRN LINE FLUSH
--- NOTE | 2019-08-12 10:07 | Operative Report ---
Operative Report Operative Report: Date: 08/11/19 22:33 Pre-op diagnosis: incarcerated incisional hernia, small bowel obstruction Post-op diagnosis: same Findings: 1. 2.5 cm supraumbilical incisional hernia 2. chronically incarcerated small bowel, reduced and viable 3. old mesh 4. dense small bowel and omental adhesions to anterior abdominal wall Procedure: diagnostic laparoscopy, open reduction of incarcerated incisional hernia, lysis of adhesions and primary fascial closure Anesthesia: KAIAA, local Surgeon: LIZBETH ALLEN Nurse Epidemiologist: ANISHA ARTHUR Estimated blood loss: minimal Pathology: list (hernia sac) Specimen disposition: to lab Condition: stable Disposition: PACU HPI and indication: Patient is a 48-year-old female with history of PE now on Eliquis, incisional hernia, morbid obesity with a BMI of 77 who presented to the emergency room with supraumbilical midline abdominal pain, sharp, nonradiating, present for approximately 1 day. The patient had been recently admitted to an outside hospital 1 month prior for small bowel obstruction which resolved with conservative management. On physical exam the patient was found to have point tenderness in the supraumbilical region in the midline which correlated to a incisional hernia containing bowel seen on CT scan of the abdomen and pelvis. The hernia was felt to be reduced on physical exam and the patient did get relief. She was managed with an NG tube, however her pain returned and was severe. A repeat CT scan of the abdomen and pelvis showed the small bowel loop incarcerated in the incisional hernia and the location of the patient's pain with partial small bowel obstruction. As patient failed conservative management, it was recommended that the hernia be reduced surgically. All risks, benefits, alternatives to surgery were discussed with the patient and questions answered. Consent was obtained for diagnostic laparoscopy, possible exploratory laparotomy, possible bowel resection, hernia repair with possible mesh. This was discussed in detail with the patient's daughter as well. Procedure in detail: Patient was identified in the preoperative area, taken back to the operating room, placed on the operating room table in supine position. After anesthesia was induced the abdomen was prepped and draped in usual sterile fashion a timeout performed. Local anesthetic was infiltrated to the skin and subcutaneous tissue at the intended incision site. A supraumbilical midline incision was made through the patient's old midline scar using a 10 blade and dissection carried down through the skin and subcutaneous tissue using Bovie electrocautery. As we dissected through the subcutaneous tissue a hard mass of scar tissue was palpable in the midline. We carefully dissected the scar tissue from the surrounding subcutaneous fat and followed this down to the fascia. A incision was made in the fascia superior to the scar tissue using electrocautery. The fascia was grasped between 2 Koker's and the posterior fascia was identified and grasped between 2 Koker's. An incision was made in the posterior fascia and the peritoneum entered bluntly using a gloved finger. A 12 mm balloon trocar was placed under direct visualization through this incision and the abdomen insufflated to 15 mmHg. Upon inspection of the abdomen there was no underlying injury to any of the abdominal structures. There were dense omental adhesions to most of the mid abdominal wall along with small bowel adhesions. There was felt to be no safe location to place an additional trocar. At this point the trocar was removed and the abdomen desufflated. Over 2 gloved fingers the fascia was carefully opened from a cephalad to caudad direction until the hernia defect was reached. The hernia sac was identified and circumferentially dissected from the fascia. There was a loop of small bowel which was chronically incarcerated in the hernia sac which was very meticulously dissected from the hernia sac. While opening the fascia, we also encountered old ventralex ST mesh. The mesh was also densely adhered to this loop of chronically incarcerated small bowel. There was very mild dilatation of the small bowel that was involved in the hernia, as well as scarring of the serosa. The bowel lumen was palpated and was patent. There was no injury identified to the incarcerated bowel and it was viable. The complexity of the case and prolonged duration of this case was directly related to the patient's morbid obesity, BMI of 77.4. Once enough bowel was freed from the anterior abdominal wall, the decision was made to primarily close the fascia. Hemostasis was ensured. The fascia was closed using #1 running PDS suture. The subcutaneous tissue was irrigated and hemostasis ensured. The deep dermal layer was closed with 2-0 Vicryl interrupted sutures. The skin was approximated using 4-0 Monocryl subcuticular stitches and skin glue. At the end of the case, all sponge, instrument, sharp counts were correct x2. The patient was awoken from anesthesia, extubated, taken to PACU in stable condition. The patient's was updated.
--- NOTE | 2019-08-12 10:20 | Progress Note ---
Assessment and Plan 48-year-old female status post diagnostic laparoscopy, open reduction of incarcerated incisional hernia, primary fascial closure, POD 1 1. Partial small bowel obstruction 2/2 #2 2. Incisional hernia 3. Morbid obesity 4. Diabetes -poorly controlled 5. History of PE on Eliquis Plan: 1. c/w NG tube on low intermittent suction 2. strict I/Os 3. NPO, ok to have ice chips 4. prn pain control -IV Dilaudid 5. Starting today, OOB/ambulate - PT consult 6. DVT prophylaxis -Lovenox 7. Await bowel function 8. Abdominal binder at all times 9. Strict glucose control 10. GI ppx Thank you, please call with questions. Evaluation and treatment of this patient was during the time of the national and state emergency arising from COVID19 coronavirus pandemic. Treatment and procedures performed meet the current and available best practice and guidelines for patient during the COVID pandemic. Subjective Date of service: 08/12/19 Narrative: Patient seen and examined. She states that she feels much better than yesterday. She is having abdominal pain but it is localized to the area of the incision and the pain is different than her pain prior to surgery. Pain is well controlled. No fevers, chills, chest pain, shortness of breath, nausea, v omiting. Objective Vital Signs - 12hr 08/11/19 08/11/19 08/11/19 22:26 22:30 22:35 Temperature 98.6 F Pulse Rate 89 88 86 Respiratory 24 11 L 17 Rate Respiratory Rate [Abdomen] Blood Pressure 148/50 167/60 170/76 O2 Sat by Pulse 100 100 100 Oximetry 08/11/19 08/11/19 08/11/19 22:40 22:45 22:50 Temperature Pulse Rate 80 80 84 Respiratory 20 20 15 Rate Respiratory Rate [Abdomen] Blood Pressure 182/75 170/76 165/75 O2 Sat by Pulse 100 100 99 Oximetry 08/11/19 08/11/19 08/11/19 22:55 23:00 23:05 Temperature Pulse Rate 86 91 H 86 Respiratory 14 12 13 Rate Respiratory Rate [Abdomen] Blood Pressure 182/77 187/76 182/66 O2 Sat by Pulse 100 100 99 Oximetry 08/11/19 08/11/19 08/11/19 23:06 23:10 23:15 Temperature Pulse Rate 86 74 70 Respiratory 21 17 Rate Respiratory Rate [Abdomen] Blood Pressure 182/66 174/85 181/86 O2 Sat by Pulse 98 96 Oximetry 08/11/19 08/11/19 08/11/19 23:20 23:25 23:40 Temperature 97.6 F Pulse Rate 72 75 78 Respiratory 13 18 15 Rate Respiratory Rate [Abdomen] Blood Pressure 143/67 127/70 145/75 O2 Sat by Pulse 97 98 97 Oximetry 08/12/19 08/12/19 08/12/19 00:05 00:16 00:59 Temperature 97.0 F L 97.6 F Pulse Rate 81 Respiratory 15 20 16 Rate Respiratory Rate [Abdomen] Blood Pressure 141/55 141/55 O2 Sat by Pulse 100 Oximetry 08/12/19 08/12/19 08/12/19 06:00 06:06 06:09 Temperature 98.5 F Pulse Rate 111 H Respiratory 20 18 Rate Respiratory 18 Rate [Abdomen] Blood Pressure 135/51 O2 Sat by Pulse 94 Oximetry - General physical appearance Narrative Exam: Gen.: Awake, alert, oriented 3. No apparent distress ENT: Trachea midline. NG tube with dark green drainage. CV: S1, S2 present Respiratory: No audible wheezes Abdomen: Soft, nondistended, mild tenderness near supraumbilical midline incision. The incision is clean, dry, intact without evidence of infection. No rebound, rigidity, guarding Extremities: No clubbing, cyanosis, edema - Labs 08/12/19 10:40 08/12/19 10:40
[2019-08-12 11:17] LABS: Hematocrit 33.5 % (30.3-42.9); Hemoglobin 10.7 gm/dl (10.1-14.3); Mean Corpuscular HGB Conc 32 % (30-34); Mean Corpuscular Volume 76 fl (79-97); Platelet Count 453 K/mm3 (140-440); Red Blood Count 4.39 M/mm3 (3.65-5.03); Red Cell Distribution Width 19.8 % (13.2-15.2)
[2019-08-12 11:27] LABS: BUN/Creatinine Ratio 17; Blood Urea Nitrogen 12 mg/dL (7-17); Calcium 8.8 mg/dL (8.4-10.2); Hemolysis Index 24
[2019-08-12] MEDS: FAMOTIDINE 20 MG/2 ML INJ IV SCH ×2 (14:00→21:24)
[2019-08-12] MEDS: SODIUM CHLORIDE 0.9% 1000 ML 1,000 ML IV SCH (23:34)
[2019-08-13] MEDS: HYDROmorphone 1 MG/1 ML INJ IV PRN ×5 (02:40→21:08)
[2019-08-13 05:40] LABS: Basophils % (Auto) 0.3 % (0.0-1.8); Eosinophils # (Auto) 0.3 K/mm3 (0.0-0.4); Hematocrit 31.7 % (30.3-42.9); Hemoglobin 10.1 gm/dl (10.1-14.3); Lymphocytes # (Auto) 0.9 K/mm3 (1.2-5.4); Lymphocytes % (Auto) 13.4 % (13.4-35.0); Mean Corpuscular HGB Conc 32 % (30-34); Mean Corpuscular Volume 77 fl (79-97); Monocytes # (Auto) 0.9 K/mm3 (0.0-0.8); Monocytes % (Auto) 13.3 % (0.0-7.3); Platelet Count 444 K/mm3 (140-440); Red Blood Count 4.11 M/mm3 (3.65-5.03)
[2019-08-13 05:58] LABS: BUN/Creatinine Ratio 12; Blood Urea Nitrogen 7 mg/dL (7-17); Calcium 8.5 mg/dL (8.4-10.2); Hemolysis Index 26
[2019-08-13] MEDS: INSULIN LISPRO 100 UNIT/ML SUB-Q SCH ×4 (08:01→22:53)
--- NOTE | 2019-08-13 08:50 | Progress Note ---
Assessment and Plan Assessment and plan: Partial small bowel obstruction. Etiology secondary to #2 Incarcerated incisional hernia. Primary fascial closure Morbid obesity. Will refer to bariatric surgeon at tertiary care hospital upon discharge. Weight loss will be imperative for the patient. Diabetes Mellitus Type 2. Cont. SSRI and accuchecks. Tight glycemic control History of PE. Cont. on Eliquis 08/12/2019. The patient was taken to the OR on 08/11/2019 diagnostic laparoscopy and found to have incarcerated incisional hernia and small bowel obstruction. Patient had open reduction of incarcerated incisional hernia, lysis of adhesions and primary fascial closure. Continue with supportive care with IV fluid hydration. Advance diet per surgery recommendations. PT/OT. 08/13/2019. Currently n.p.o. Advance diet per surgery. + Flatus. Continue NG tube on low intermittent suction. PT evaluation pending. History Interval history: 48-year-old female with a history of morbid obesity who presents to the emergency room on 08/10/2019 with 1 day of supraumbilical abdominal pain. The patient surgical history significant for a laparoscopic appendectomy, laparoscopic cholecystectomy, laparoscopic ventral hernia repair, diagnostic laparoscopy with lysis of adhesions and partial mesh excision for a complete small bowel obstruction in 2018. [place]. The patient states that she was being evaluated for bariatric surgery a few years ago and and her last stages of clearance, she developed a pulmonary embolism for which she receives anticoagulation with Eliquis indefinitely. The patient was admitted with diagnosis of partial small bowel obstruction and hernia. The patient was evaluated by surgery in consultation. Patient initially had the hernia reduced by surgery. However, patient continued to have abdominal pain. The patient was taken to the OR and had diagnostic laparoscopy. Hospitalist Physical - Constitutional Vitals: Temp Pulse Resp BP Pulse Ox 98.4 F 104 H 18 150/67 96 08/13/19 07:47 08/13/19 07:47 08/13/19 07:47 08/13/19 07:47 08/13/19 07:47 General appearance: Present: no acute distress, well-nourished, obese (Morbidly obese) - EENT Eyes: Present: PERRL, EOM intact ENT: hearing intact, clear oral mucosa, dentition normal - Neck Neck: Present: supple, normal ROM - Respiratory Respiratory effort: normal Respiratory: bilateral: CTA - Cardiovascular Rhythm: regular Heart Sounds: Present: S1 & S2. Absent: gallop, rub - Extremities Extremities: no ischemia, No edema, Full ROM - Abdominal General gastrointestinal: soft, non-tender, non-distended, normal bowel sounds - Integumentary Integumentary: Present: clear, warm, dry - Neurologic Neurologic: CNII-XII intact, moves all extremities Results - Labs CBC & Chem 7: 08/13/19 04:45 08/13/19 04:45 Labs: Laboratory Last Values WBC 6.8 K/mm3 (4.5-11.0) 08/13/19 04:45 RBC 4.11 M/mm3 (3.65-5.03) 08/13/19 04:45 Hgb 10.1 gm/dl (10.1-14.3) 08/13/19 04:45 Hct 31.7 % (30.3-42.9) 08/13/19 04:45 MCV 77 fl (79-97) L 08/13/19 04:45 MCH 25 pg (28-32) L 08/13/19 04:45 MCHC 32 % (30-34) 08/13/19 04:45 RDW 20.0 % (13.2-15.2) H 08/13/19 04:45 Plt Count 444 K/mm3 (140-440) H 08/13/19 04:45 Lymph % (Auto) 13.4 % (13.4-35.0) 08/13/19 04:45 [place] % (Auto) 13.3 % (0.0-7.3) H 08/13/19 04:45 Eos % (Auto) 4.0 % (0.0-4.3) 08/13/19 04:45 Baso % (Auto) 0.3 % (0.0-1.8) 08/13/19 04:45 Lymph # 0.9 K/mm3 (1.2-5.4) L 08/13/19 04:45 [place] # 0.9 K/mm3 (0.0-0.8) H 08/13/19 04:45 Eos # 0.3 K/mm3 (0.0-0.4) 08/13/19 04:45 Baso # 0.0 K/mm3 (0.0-0.1) 08/13/19 04:45 Seg Neutrophils % 69.0 % (40.0-70.0) 08/13/19 04:45 Seg Neutrophils # 4.7 K/mm3 (1.8-7.7) 08/13/19 04:45 PT 14.5 Sec. (12.2-14.9) 08/11/19 05:03 INR 1.12 (0.87-1.13) 08/11/19 05:03 Sodium 142 mmol/L (137-145) 08/13/19 04:45 Potassium 3.9 mmol/L (3.6-5.0) 08/13/19 04:45 Chloride 104.9 mmol/L (98-107) 08/13/19 04:45 Carbon Dioxide 24 mmol/L (22-30) 08/13/19 04:45 Anion Gap 17 mmol/L 08/13/19 04:45 BUN 7 mg/dL (7-17) 08/13/19 04:45 Creatinine 0.6 mg/dL (0.7-1.2) L 08/13/19 04:45 Estimated GFR > 60 ml/min 08/13/19 04:45 BUN/Creatinine Ratio 12 % 08/13/19 04:45 Glucose 221 mg/dL (65-100) H 08/13/19 04:45 POC Glucose 301 (70-105) H 08/10/19 12:16 Calcium 8.5 mg/dL (8.4-10.2) 08/13/19 04:45 Total Bilirubin 0.50 mg/dL (0.1-1.2) 08/10/19 01:01 Direct Bilirubin < 0.2 mg/dL (0-0.2) 08/10/19 01:01 Indirect Bilirubin 0.3 mg/dL 08/10/19 01:01 AST 14 units/L (5-40) 08/10/19 01:01 ALT 11 units/L (7-56) 08/10/19 01:01 Alkaline Phosphatase 81 units/L (35-129) 08/10/19 01:01 Total Protein 8.5 g/dL (6.3-8.2) H 08/10/19 01:01 Albumin 3.8 g/dL (3.9-5) L 08/10/19 01:01 Albumin/Globulin Ratio 0.8 % 08/10/19 01:01 Lipase 11 units/L (13-60) L 08/10/19 01:01 Urine Color Yellow (Yellow) 08/11/19 Unknown Urine Turbidity Clear (Clear) 08/11/19 Unknown Urine pH 5.0 (5.0-7.0) 08/11/19 Unknown Ur Specific [place] 1.012 (1.003-1.030) 08/11/19 Unknown Urine Protein <15 mg/dl mg/dL (Negative) 08/11/19 Unknown Urine Glucose (UA) >=500 mg/dL (Negative) 08/11/19 Unknown Urine Ketones 20 mg/dL (Negative) 08/11/19 Unknown Urine Blood Mod (Negative) 08/11/19 Unknown Urine Nitrite Neg (Negative) 08/11/19 Unknown Urine Bilirubin Neg (Negative) 08/11/19 Unknown Urine Urobilinogen < 2.0 mg/dL (<2.0) 08/11/19 Unknown Ur Leukocyte Esterase Neg (Negative) 08/11/19 Unknown Urine WBC (Auto) 2.0 /HPF (0.0-6.0) 08/11/19 Unknown Urine RBC (Auto) 12.0 /HPF (0.0-6.0) 08/11/19 Unknown U Epithel Cells (Auto) 3.0 /HPF (0-13.0) 08/11/19 Unknown Urine Mucus Few /HPF 08/11/19 Unknown Blood Type A POSITIVE 08/11/19 15:00 Antibody Screen Negative 08/11/19 15:00 Bob/IV: Voiding Method External Female Catheter IV Catheter Type [Left Peripheral IV Antecubital] Active Medications - Current Medications Current Medications: Generic Name Dose Route Start Last Admin Trade Name Freq PRN Reason Stop Dose Admin Acetaminophen 650 mg 08/10/19 04:44 Tylenol PO Q4H PRN Pain MILD(1-3)/Fever >100.5/SAINZ Dextrose 50 ml 08/10/19 04:44 D50w (25gm) Syringe IV Q30MIN PRN Hypoglycemia Protocol Enoxaparin Sodium 40 mg 08/11/19 12:00 08/12/19 09:45 Enoxaparin SUB-Q 40 mg DAILY JULITA Administration Famotidine 20 mg 08/12/19 14:00 08/12/19 21:24 Pepcid IV 20 mg BID JULITA Administration Hydromorphone HCl 1 mg 08/11/19 11:46 08/13/19 08:01 Dilaudid IV 1 mg Q4H PRN Administration Pain , Severe (7-10) Hydrophilic Ointment 1 applic 08/12/19 05:06 08/12/19 05:41 Vaseline Lip Therapy TP 1 applic DIRECT PRN Administration Dry Lips Sodium Chloride 1,000 mls @ 75 mls/hr 08/11/19 11:00 08/12/19 23:34 Nacl 0.9% 1000 Ml IV 75 mls/hr DIRECT JULITA Administration Insulin Human Lispro 0 unit 08/10/19 07:30 08/13/19 08:01 Humalog SUB-Q 4 unit ACHS JULITA Administration Protocol Labetalol HCl 10 mg 08/11/19 22:44 08/11/19 23:06 Labetalol IV 10 mg Q10MIN PRN Administration Hypertension Ondansetron HCl 4 mg 08/10/19 04:44 08/12/19 09:43 Zofran IV 4 mg Q8H PRN Administration Nausea And Vomiting Sodium Chloride 10 ml 08/10/19 10:00 08/12/19 21:24 Sodium Chloride Flush Syringe 10 Ml IV 10 ml BID JULITA Administration Sodium Chloride 10 ml 08/10/19 04:44 Sodium Chloride Flush Syringe 10 Ml IV PRN PRN LINE FLUSH
[2019-08-13] MEDS: ENOXAPARIN 40 MG/0.4 ML INJ SUB-Q SCH (10:46)
[2019-08-13] MEDS: FAMOTIDINE 20 MG/2 ML INJ IV SCH ×2 (10:46→21:09)
[2019-08-13] MEDS ORDERED: PHENOL 1.4% 177 ML BOTTLE MM PRN (16:22)
--- NOTE | 2019-08-13 17:37 | Progress Note ---
Assessment and Plan 48-year-old female status post diagnostic laparoscopy, open reduction of incarcerated incisional hernia, primary fascial closure, POD 2 1. Partial small bowel obstruction 2/2 #2 2. Incisional hernia 3. Morbid obesity 4. Diabetes -poorly controlled 5. History of PE on Eliquis Plan: 1. c/w NG tube on low intermittent suction. Will order Chloraseptic [place] for patient's sore throat. 2. strict I/Os 3. NPO, ok to have ice chips 4. prn pain control -IV Dilaudid 5. OOB/ambulate/up to chair- PT consult 6. DVT prophylaxis -Lovenox 7. Await bowel function 8. Abdominal binder at all times 9. Strict glucose control 10. GI ppx Thank you, please call with questions. Evaluation and treatment of this patient was during the time of the national and state emergency arising from COVID19 coronavirus pandemic. Treatment and procedures performed meet the current and available best practice and guidelines for patient during the COVID pandemic. Subjective Date of service: 08/13/19 Narrative: Patient seen and examined. Afebrile. She complains of pain from her NG tube in her throat. She states that she has had some coughing episodes where there is been some greenish mucus discharge mixed with some blood. She states that she is having flatus but no BM. No nausea or vomiting. Abdominal pain is localized to the incision and is well controlled. Objective Vital Signs - 12hr 08/13/19 08/13/19 08/13/19 07:47 09:00 10:35 Temperature 98.4 F Pulse Rate 104 H 95 H Pulse Rate [ 108 H Left Radial] Pulse Rate [ 108 H Right Radial] Respiratory 18 22 Rate Blood Pressure 150/67 O2 Sat by Pulse 96 98 Oximetry 08/13/19 10:41 Temperature Pulse Rate 100 H Pulse Rate [ Left Radial] Pulse Rate [ Right Radial] Respiratory Rate Blood Pressure 155/74 O2 Sat by Pulse 98 Oximetry - General physical appearance Narrative Exam: Gen.: Awake, alert, oriented 3. No apparent distress ENT: NG tube in place with bilious drainage CV: S1, S2 present Respiratory: No audible wheezes Abdomen: Soft, nondistended, mild david-incisional tenderness to palpation. Incision is clean, dry, intact. Abdominal binder in place. No rebound, rigidity, guarding Extremities: No clubbing, cyanosis, edema Urine output: 900 cc over 24 hours NG tube output: 250 cc over 24 hours - Labs 08/13/19 04:45 08/13/19 04:45 Diabetes panel 08/13/19 Range/Units 04:45 Sodium 142 (137-145) mmol/L Potassium 3.9 (3.6-5.0) mmol/L Chloride 104.9 (98-107) mmol/L Carbon Dioxide 24 (22-30) mmol/L BUN 7 (7-17) mg/dL Creatinine 0.6 L (0.7-1.2) mg/dL Glucose 221 H (65-100) mg/dL Calcium 8.5 (8.4-10.2) mg/dL Calcium panel 08/13/19 Range/Units 04:45 Calcium 8.5 (8.4-10.2) mg/dL Pituitary panel 08/13/19 Range/Units 04:45 Sodium 142 (137-145) mmol/L Potassium 3.9 (3.6-5.0) mmol/L Chloride 104.9 (98-107) mmol/L Carbon Dioxide 24 (22-30) mmol/L BUN 7 (7-17) mg/dL Creatinine 0.6 L (0.7-1.2) mg/dL Glucose 221 H (65-100) mg/dL Calcium 8.5 (8.4-10.2) mg/dL Adrenal panel 08/13/19 Range/Units 04:45 Sodium 142 (137-145) mmol/L Potassium 3.9 (3.6-5.0) mmol/L Chloride 104.9 (98-107) mmol/L Carbon Dioxide 24 (22-30) mmol/L BUN 7 (7-17) mg/dL Creatinine 0.6 L (0.7-1.2) mg/dL Glucose 221 H (65-100) mg/dL Calcium 8.5 (8.4-10.2) mg/dL
[2019-08-13] MEDS: SODIUM CHLORIDE 0.9% 1000 ML 1,000 ML IV SCH (21:09)
[2019-08-14] MEDS: HYDROmorphone 1 MG/1 ML INJ IV PRN ×5 (01:07→21:21)
[2019-08-14 04:38] LABS: Basophils % (Auto) 0.4 % (0.0-1.8); Eosinophils # (Auto) 0.5 K/mm3 (0.0-0.4); Eosinophils % (Auto) 5.5 % (0.0-4.3); Hematocrit 33.5 % (30.3-42.9); Hemoglobin 10.6 gm/dl (10.1-14.3); Lymphocytes % (Auto) 10.3 % (13.4-35.0); Mean Corpuscular HGB Conc 32 % (30-34); Mean Corpuscular Volume 78 fl (79-97); Monocytes # (Auto) 0.8 K/mm3 (0.0-0.8); Monocytes % (Auto) 8.1 % (0.0-7.3); Platelet Count 421 K/mm3 (140-440); Red Blood Count 4.29 M/mm3 (3.65-5.03); Red Cell Distribution Width 19.3 % (13.2-15.2)
[2019-08-14 04:54] LABS: BUN/Creatinine Ratio 10; Blood Urea Nitrogen 6 mg/dL (7-17); Calcium 8.8 mg/dL (8.4-10.2); Hemolysis Index 5
--- NOTE | 2019-08-14 08:48 | Progress Note ---
Assessment and Plan Assessment and plan: Partial small bowel obstruction. Etiology secondary to #2 Incarcerated incisional hernia. Primary fascial closure Morbid obesity. Will refer to bariatric surgeon at tertiary [facility] upon discharge. Weight loss will be imperative for the patient. Diabetes Mellitus Type 2. Cont. SSRI and accuchecks. Tight glycemic control History of PE. Cont. on Eliquis 08/12/2019. The patient was taken to the OR on 08/11/2019 diagnostic laparoscopy and found to have incarcerated incisional hernia and small bowel obstruction. Patient had open reduction of incarcerated incisional hernia, lysis of adhesions and primary fascial closure. Continue with supportive care with IV fluid hydration. Advance diet per surgery recommendations. PT/OT. 08/13/2019. Currently n.p.o. Advance diet per surgery. + Flatus. Continue NG tube on low intermittent suction. PT evaluation pending. 08/14/2019. Continue with NG tube on low intermittent suction per surgery. Continue strict I/Os. Continue NPO. Physical therapy evaluation pending. Add Lantus for tighter glycemic control. History Interval history: 48-year-old female with a history of morbid obesity who presents to the emergency room on 08/10/2019 with 1 day of supraumbilical abdominal pain. The patient surgical history significant for a laparoscopic appendectomy, laparoscopic cholecystectomy, laparoscopic ventral hernia repair, diagnostic laparoscopy with lysis of adhesions and partial mesh excision for a complete small bowel obstruction in 2018. All of the surgeries were performed out of sta te. The patient states that she was being evaluated for bariatric surgery a few years ago and and her last stages of clearance, she developed a pulmonary embolism for which she receives anticoagulation with Eliquis indefinitely. The patient was admitted with diagnosis of partial small bowel obstruction and hernia. The patient was evaluated by surgery in consultation. Patient initially had the hernia reduced by surgery. However, patient continued to have abdominal pain. The patient was taken to the OR and had diagnostic laparoscopy. Hospitalist Physical - Constitutional Vitals: Temp Pulse Resp BP Pulse Ox 97.9 F 93 H 20 157/78 100 08/14/19 04:59 08/14/19 04:59 08/14/19 05:06 08/14/19 04:59 08/14/19 04:59 General appearance: Present: no acute distress, well-nourished, obese (Morbidly obese) - EENT Eyes: Present: PERRL, EOM intact ENT: hearing intact, clear oral mucosa, dentition normal - Neck Neck: Present: supple, normal ROM - Respiratory Respiratory effort: normal Respiratory: bilateral: CTA - Cardiovascular Rhythm: regular Heart Sounds: Present: S1 & S2. Absent: gallop, rub - Extremities Extremities: no ischemia, No edema, Full ROM - Abdominal General gastrointestinal: soft, non-tender, non-distended, normal bowel sounds - Integumentary Integumentary: Present: clear, warm, dry - Neurologic Neurologic: CNII-XII intact, moves all extremities Results - Labs CBC & Chem 7: 08/14/19 04:16 08/14/19 04:16 Labs: Laboratory Last Values WBC 9.7 K/mm3 (4.5-11.0) 08/14/19 04:16 RBC 4.29 M/mm3 (3.65-5.03) 08/14/19 04:16 Hgb 10.6 gm/dl (10.1-14.3) 08/14/19 04:16 Hct 33.5 % (30.3-42.9) 08/14/19 04:16 MCV 78 fl (79-97) L 08/14/19 04:16 MCH 25 pg (28-32) L 08/14/19 04:16 MCHC 32 % (30-34) 08/14/19 04:16 RDW 19.3 % (13.2-15.2) H 08/14/19 04:16 Plt Count 421 K/mm3 (140-440) 08/14/19 04:16 Lymph % (Auto) 10.3 % (13.4-35.0) L 08/14/19 04:16 [place] % (Auto) 8.1 % (0.0-7.3) H 08/14/19 04:16 Eos % (Auto) 5.5 % (0.0-4.3) H 08/14/19 04:16 Baso % (Auto) 0.4 % (0.0-1.8) 08/14/19 04:16 Lymph # 1.0 K/mm3 (1.2-5.4) L 08/14/19 04:16 [place] # 0.8 K/mm3 (0.0-0.8) 08/14/19 04:16 Eos # 0.5 K/mm3 (0.0-0.4) H 08/14/19 04:16 Baso # 0.0 K/mm3 (0.0-0.1) 08/14/19 04:16 Seg Neutrophils % 75.7 % (40.0-70.0) H 08/14/19 04:16 Seg Neutrophils # 7.3 K/mm3 (1.8-7.7) 08/14/19 04:16 PT 14.5 Sec. (12.2-14.9) 08/11/19 05:03 INR 1.12 (0.87-1.13) 08/11/19 05:03 Sodium 142 mmol/L (137-145) 08/14/19 04:16 Potassium 4.1 mmol/L (3.6-5.0) 08/14/19 04:16 Chloride 103.8 mmol/L (98-107) 08/14/19 04:16 Carbon Dioxide 26 mmol/L (22-30) 08/14/19 04:16 Anion Gap 16 mmol/L 08/14/19 04:16 BUN 6 mg/dL (7-17) L 08/14/19 04:16 Creatinine 0.6 mg/dL (0.7-1.2) L 08/14/19 04:16 Estimated GFR > 60 ml/min 08/14/19 04:16 BUN/Creatinine Ratio 10 % 08/14/19 04:16 Glucose 184 mg/dL (65-100) H 08/14/19 04:16 POC Glucose 301 (70-105) H 08/10/19 12:16 Calcium 8.8 mg/dL (8.4-10.2) 08/14/19 04:16 Total Bilirubin 0.50 mg/dL (0.1-1.2) 08/10/19 01:01 Direct Bilirubin < 0.2 mg/dL (0-0.2) 08/10/19 01:01 Indirect Bilirubin 0.3 mg/dL 08/10/19 01:01 AST 14 units/L (5-40) 08/10/19 01:01 ALT 11 units/L (7-56) 08/10/19 01:01 Alkaline Phosphatase 81 units/L (35-129) 08/10/19 01:01 Total Protein 8.5 g/dL (6.3-8.2) H 08/10/19 01:01 Albumin 3.8 g/dL (3.9-5) L 08/10/19 01:01 Albumin/Globulin Ratio 0.8 % 08/10/19 01:01 Lipase 11 units/L (13-60) L 08/10/19 01:01 Urine Color Yellow (Yellow) 08/11/19 Unknown Urine Turbidity Clear (Clear) 08/11/19 Unknown Urine pH 5.0 (5.0-7.0) 08/11/19 Unknown Ur Specific [place] 1.012 (1.003-1.030) 08/11/19 Unknown Urine Protein <15 mg/dl mg/dL (Negative) 08/11/19 Unknown Urine Glucose (UA) >=500 mg/dL (Negative) 08/11/19 Unknown Urine Ketones 20 mg/dL (Negative) 08/11/19 Unknown Urine Blood Mod (Negative) 08/11/19 Unknown Urine Nitrite Neg (Negative) 08/11/19 Unknown Urine Bilirubin Neg (Negative) 08/11/19 Unknown Urine Urobilinogen < 2.0 mg/dL (<2.0) 08/11/19 Unknown Ur Leukocyte Esterase Neg (Negative) 08/11/19 Unknown Urine WBC (Auto) 2.0 /HPF (0.0-6.0) 08/11/19 Unknown Urine RBC (Auto) 12.0 /HPF (0.0-6.0) 08/11/19 Unknown U Epithel Cells (Auto) 3.0 /HPF (0-13.0) 08/11/19 Unknown Urine Mucus Few /HPF 08/11/19 Unknown Nasal Screen MRSA (PCR) Negative (Negative) 08/12/19 16:30 Blood Type A POSITIVE 08/11/19 15:00 Antibody Screen Negative 08/11/19 15:00 Bob/IV: Voiding Method External Female Catheter IV Catheter Type [Left Peripheral IV Antecubital] Active Medications - Current Medications Current Medications: Generic Name Dose Route Start Last Admin Trade Name Freq PRN Reason Stop Dose Admin Acetaminophen 650 mg 08/10/19 04:44 Tylenol PO Q4H PRN Pain MILD(1-3)/Fever >100.5/SAINZ Dextrose 50 ml 08/10/19 04:44 D50w (25gm) Syringe IV Q30MIN PRN Hypoglycemia Protocol Enoxaparin Sodium 40 mg 08/11/19 12:00 08/13/19 10:46 Enoxaparin SUB-Q 40 mg DAILY JULITA Administration Famotidine 20 mg 08/12/19 14:00 08/13/19 21:09 Pepcid IV 20 mg BID JULITA Administration Hydromorphone HCl 1 mg 08/11/19 11:46 08/14/19 05:06 Dilaudid IV 1 mg Q4H PRN Administration Pain , Severe (7-10) Hydrophilic Ointment 1 applic 08/12/19 05:06 08/12/19 05:41 Vaseline Lip Therapy TP 1 applic DIRECT PRN Administration Dry Lips Sodium Chloride 1,000 mls @ 75 mls/hr 08/11/19 11:00 08/13/19 21:09 Nacl 0.9% 1000 Ml IV 75 mls/hr DIRECT JULITA Administration Insulin Human Lispro 0 unit 08/10/19 07:30 08/13/19 22:53 Humalog SUB-Q Not Given ACHS [facility] Protocol Labetalol HCl 10 mg 08/11/19 22:44 08/11/19 23:06 Labetalol IV 10 mg Q10MIN PRN Administration Hypertension Ondansetron HCl 4 mg 08/10/19 04:44 08/12/19 09:43 Zofran IV 4 mg Q8H PRN Administration Nausea And Vomiting Phenol 1 spray 08/13/19 16:22 08/14/19 05:05 Chloraseptic MM 1 spray PRN PRN Administration Sore Throat Sodium Chloride 10 ml 08/10/19 10:00 08/13/19 21:09 Sodium Chloride Flush Syringe 10 Ml IV 10 ml BID JULITA Administration Sodium Chloride 10 ml 08/10/19 04:44 Sodium Chloride Flush Syringe 10 Ml IV PRN PRN LINE FLUSH
[2019-08-14] MEDS: FAMOTIDINE 20 MG/2 ML INJ IV SCH ×2 (10:42→21:20)
[2019-08-14] MEDS: ENOXAPARIN 40 MG/0.4 ML INJ SUB-Q SCH (10:42)
[2019-08-14] MEDS: INSULIN LISPRO 100 UNIT/ML SUB-Q SCH ×4 (10:51→21:20)
--- NOTE | 2019-08-14 12:57 | Progress Note ---
Assessment and Plan 48-year-old female status post diagnostic laparoscopy, open reduction of incarcerated incisional hernia, primary fascial closure, POD 3 1. Partial small bowel obstruction 2/2 #2 2. Incisional hernia 3. Morbid obesity 4. Diabetes -poorly controlled 5. History of PE on Eliquis Plan: 1. c/w NG tube on low intermittent suction. Output was high yesterday but may be in part due to ice chip/water consumption. Possible clamp trial tomorrow if drainage improves 2. strict I/Os 3. NPO, ok to have ice chips 4. prn pain control -IV Dilaudid 5. OOB/ambulate/up to chair- PT consult 6. DVT prophylaxis -Lovenox 7. Await bowel function 8. Abdominal binder at all times 9. Strict glucose control 10. GI ppx Thank you, please call with questions. Evaluation and treatment of this patient was during the time of the national and state emergency arising from COVID19 coronavirus pandemic. Treatment and procedures performed meet the current and available best practice and guidelines for patient during the COVID pandemic. Subjective Date of service: 08/14/19 Narrative: Patient seen and examined. No acute complaints. States her incisional abdomi nal pain is well controlled. No fevers, chills. No nausea, vomiting. She has been consuming ice chips. States that she is having flatus, much more than yesterday. No bowel movement. Objective Vital Signs - 12hr 08/14/19 08/14/19 08/14/19 01:02 04:59 05:06 Temperature 97.9 F Pulse Rate 94 H 93 H Respiratory 18 20 Rate Blood Pressure 157/78 O2 Sat by Pulse 100 Oximetry 08/14/19 09:00 Temperature 97.7 F Pulse Rate 91 H Respiratory 20 Rate Blood Pressure 146/59 O2 Sat by Pulse 100 Oximetry - General physical appearance Narrative Exam: Gen.: Awake, alert, oriented 3. No apparent distress ENT: NGT in place with light green drainage CV: S1, S2 present Respiratory: No audible wheezes Abdomen: Soft, nondistended, nontender. Supraumbilical midline incision is clean, dry, intact. No rebound, rigidity, guarding Extremities: No clubbing, cyanosis, edema - Labs 08/14/19 04:16 08/14/19 04:16 Diabetes panel 08/14/19 Range/Units 04:16 Sodium 142 (137-145) mmol/L Potassium 4.1 (3.6-5.0) mmol/L Chloride 103.8 (98-107) mmol/L Carbon Dioxide 26 (22-30) mmol/L BUN 6 L (7-17) mg/dL Creatinine 0.6 L (0.7-1.2) mg/dL Glucose 184 H (65-100) mg/dL Calcium 8.8 (8.4-10.2) mg/dL Calcium panel 08/14/19 Range/Units 04:16 Calcium 8.8 (8.4-10.2) mg/dL Pituitary panel 08/14/19 Range/Units 04:16 Sodium 142 (137-145) mmol/L Potassium 4.1 (3.6-5.0) mmol/L Chloride 103.8 (98-107) mmol/L Carbon Dioxide 26 (22-30) mmol/L BUN 6 L (7-17) mg/dL Creatinine 0.6 L (0.7-1.2) mg/dL Glucose 184 H (65-100) mg/dL Calcium 8.8 (8.4-10.2) mg/dL Adrenal panel 08/14/19 Range/Units 04:16 Sodium 142 (137-145) mmol/L Potassium 4.1 (3.6-5.0) mmol/L Chloride 103.8 (98-107) mmol/L Carbon Dioxide 26 (22-30) mmol/L BUN 6 L (7-17) mg/dL Creatinine 0.6 L (0.7-1.2) mg/dL Glucose 184 H (65-100) mg/dL Calcium 8.8 (8.4-10.2) mg/dL
[2019-08-14] MEDS: INSULIN GLARGINE 100 UNITS/ML SUB-Q SCH (21:21)
[2019-08-14] MEDS: SODIUM CHLORIDE 0.9% 1000 ML 1,000 ML IV SCH (21:21)
[2019-08-15] MEDS: HYDROmorphone 1 MG/1 ML INJ IV PRN ×5 (02:39→23:21)
--- NOTE | 2019-08-15 09:25 | Progress Note ---
Assessment and Plan 48-year-old female status post diagnostic laparoscopy, open reduction of incarcerated incisional hernia, primary fascial closure, POD 4 1. Partial small bowel obstruction 2/2 #2 2. Incisional hernia 3. Morbid obesity 4. Diabetes -poorly controlled 5. History of PE on Eliquis Plan: 1. NGT clamp trial until 1300. Output is green but clear, mostly water due to ice chip intake. Will remove NGT and start clear liquid diet if patient tolerates clamp trial 2. strict I/Os 3. NPO, ok to have ice chips 4. prn pain control -IV Dilaudid 5. OOB/ambulate/up to chair- PT consult 6. DVT prophylaxis -Lovenox 7. Await bowel function 8. Abdominal binder at all times 9. Strict glucose control 10. GI ppx Thank you, please call with questions. Evaluation and treatment of this patient was during the time of the national and state emergency arising from COVID19 coronavirus pandemic. Treatment and procedures performed meet the current and available best practice and guidelines for patient during the COVID pandemic. Subjective Date of service: 08/15/19 Narrative: Pt seen and examined. Denies abdominal pain, n/v. Wants NGT out. Feels thirsty. No f/c. Has been OOB. + flatus, no BM Objective Vital Signs - 12hr 08/14/19 08/15/19 08/15/19 23:31 02:39 03:46 Temperature 97.3 F L 98.1 F Pulse Rate 86 102 H Respiratory 18 20 16 Rate Blood Pressure 132/55 169/69 O2 Sat by Pulse 95 98 Oximetry - General physical appearance Narrative Exam: Gen: AAOx3. NAD ENT: NGT with light green, clear drainage CV: s1, S2+ Resp: even and unlabored Abd: soft, NT, ND. incision c/d/i. abdominal binder in place Ext: no c/c/e - Labs 08/14/19 04:16 08/14/19 04:16
[2019-08-15] MEDS: ENOXAPARIN 40 MG/0.4 ML INJ SUB-Q SCH (11:21)
[2019-08-15] MEDS: FAMOTIDINE 20 MG/2 ML INJ IV SCH ×2 (11:22→21:54)
[2019-08-15] MEDS: INSULIN LISPRO 100 UNIT/ML SUB-Q SCH ×4 (11:22→21:54)
--- NOTE | 2019-08-15 15:57 | Progress Note ---
Assessment and Plan Assessment and plan: Partial small bowel obstruction. Etiology secondary to #2 Incarcerated incisional hernia. Primary fascial closure Morbid obesity. Will refer to bariatric surgeon at tertiary [facility] upon discharge. Weight loss will be imperative for the patient. Diabetes Mellitus Type 2. Cont. SSRI and accuchecks. Tight glycemic control History of PE. Cont. on Eliquis 08/12/2019. The patient was taken to the OR on 08/11/2019 diagnostic laparoscopy and found to have incarcerated incisional hernia and small bowel obstruction. Patient had open reduction of incarcerated incisional hernia, lysis of adhesions and primary fascial closure. Continue with supportive care with IV fluid hydration. Advance diet per surgery recommendations. PT/OT. 08/13/2019. Currently n.p.o. Advance diet per surgery. + Flatus. Continue NG tube on low intermittent suction. PT evaluation pending. 08/14/2019. Continue with NG tube on low intermittent suction per surgery. Continue strict I/Os. Continue NPO. Physical therapy evaluation pending. Add Lantus for tighter glycemic control. 08/15/2019 Patient with partial small bowel obstruction due to incarcerated incisional hernia s/p diagnostic laparoscopy, open reduction of incarcerated incisional hernia, lysis of adhesions and primary fascial closure by Dr. Lui, Surgeon. History Interval history: Abdominal pain Hospitalist Physical - Physical exam Narrative exam: GEN: Not in acute distress, obese, lying in bed HEENT: Normocephalic, atraumatic, Neck: supple, No JVD Lungs: Clear. No crackles heart;S1 and S2 reg, no murmurs, rubs or gallop Abd:soft, mild tender, non distended, abd binder over dressing over surgical wound, Ext: No edema, no clubbing, no cyanosis Neuro: Awake,alert,oriented X3,No focal neurological signs - Constitutional Vitals: Temp Pulse Resp BP Pulse Ox 97.6 F 91 H 24 206/82 100 08/15/19 11:14 08/15/19 12:39 08/15/19 11:14 08/15/19 12:39 08/15/19 11:14 General appearance: Present: no acute distress, well-nourished, obese (Morbidly obese) Results - Labs CBC & Chem 7: 08/14/19 04:16 08/14/19 04:16 Labs: Laboratory Last Values WBC 9.7 K/mm3 (4.5-11.0) 08/14/19 04:16 RBC 4.29 M/mm3 (3.65-5.03) 08/14/19 04:16 Hgb 10.6 gm/dl (10.1-14.3) 08/14/19 04:16 Hct 33.5 % (30.3-42.9) 08/14/19 04:16 MCV 78 fl (79-97) L 08/14/19 04:16 MCH 25 pg (28-32) L 08/14/19 04:16 MCHC 32 % (30-34) 08/14/19 04:16 RDW 19.3 % (13.2-15.2) H 08/14/19 04:16 Plt Count 421 K/mm3 (140-440) 08/14/19 04:16 Lymph % (Auto) 10.3 % (13.4-35.0) L 08/14/19 04:16 [place] % (Auto) 8.1 % (0.0-7.3) H 08/14/19 04:16 Eos % (Auto) 5.5 % (0.0-4.3) H 08/14/19 04:16 Baso % (Auto) 0.4 % (0.0-1.8) 08/14/19 04:16 Lymph # 1.0 K/mm3 (1.2-5.4) L 08/14/19 04:16 [place] # 0.8 K/mm3 (0.0-0.8) 08/14/19 04:16 Eos # 0.5 K/mm3 (0.0-0.4) H 08/14/19 04:16 Baso # 0.0 K/mm3 (0.0-0.1) 08/14/19 04:16 Seg Neutrophils % 75.7 % (40.0-70.0) H 08/14/19 04:16 Seg Neutrophils # 7.3 K/mm3 (1.8-7.7) 08/14/19 04:16 PT 14.5 Sec. (12.2-14.9) 08/11/19 05:03 INR 1.12 (0.87-1.13) 08/11/19 05:03 Sodium 142 mmol/L (137-145) 08/14/19 04:16 Potassium 4.1 mmol/L (3.6-5.0) 08/14/19 04:16 Chloride 103.8 mmol/L (98-107) 08/14/19 04:16 Carbon Dioxide 26 mmol/L (22-30) 08/14/19 04:16 Anion Gap 16 mmol/L 08/14/19 04:16 BUN 6 mg/dL (7-17) L 08/14/19 04:16 Creatinine 0.6 mg/dL (0.7-1.2) L 08/14/19 04:16 Estimated GFR > 60 ml/min 08/14/19 04:16 BUN/Creatinine Ratio 10 % 08/14/19 04:16 Glucose 184 mg/dL (65-100) H 08/14/19 04:16 POC Glucose 208 (70-105) H 08/15/19 11:05 Calcium 8.8 mg/dL (8.4-10.2) 08/14/19 04:16 Total Bilirubin 0.50 mg/dL (0.1-1.2) 08/10/19 01:01 Direct Bilirubin < 0.2 mg/dL (0-0.2) 08/10/19 01:01 Indirect Bilirubin 0.3 mg/dL 08/10/19 01:01 AST 14 units/L (5-40) 08/10/19 01:01 ALT 11 units/L (7-56) 08/10/19 01:01 Alkaline Phosphatase 81 units/L (35-129) 08/10/19 01:01 Total Protein 8.5 g/dL (6.3-8.2) H 08/10/19 01:01 Albumin 3.8 g/dL (3.9-5) L 08/10/19 01:01 Albumin/Globulin Ratio 0.8 % 08/10/19 01:01 Lipase 11 units/L (13-60) L 08/10/19 01:01 Urine Color Yellow (Yellow) 08/11/19 Unknown Urine Turbidity Clear (Clear) 08/11/19 Unknown Urine pH 5.0 (5.0-7.0) 08/11/19 Unknown Ur Specific [place] 1.012 (1.003-1.030) 08/11/19 Unknown Urine Protein <15 mg/dl mg/dL (Negative) 08/11/19 Unknown Urine Glucose (UA) >=500 mg/dL (Negative) 08/11/19 Unknown Urine Ketones 20 mg/dL (Negative) 08/11/19 Unknown Urine Blood Mod (Negative) 08/11/19 Unknown Urine Nitrite Neg (Negative) 08/11/19 Unknown Urine Bilirubin Neg (Negative) 08/11/19 Unknown Urine Urobilinogen < 2.0 mg/dL (<2.0) 08/11/19 Unknown Ur Leukocyte Esterase Neg (Negative) 08/11/19 Unknown Urine WBC (Auto) 2.0 /HPF (0.0-6.0) 08/11/19 Unknown Urine RBC (Auto) 12.0 /HPF (0.0-6.0) 08/11/19 Unknown U Epithel Cells (Auto) 3.0 /HPF (0-13.0) 08/11/19 Unknown Urine Mucus Few /HPF 08/11/19 Unknown Nasal Screen MRSA (PCR) Negative (Negative) 08/12/19 16:30 Blood Type A POSITIVE 08/11/19 15:00 Antibody Screen Negative 08/11/19 15:00 Bob/IV: Voiding Method External Female Catheter IV Catheter Type [Left Peripheral IV Antecubital] Active Medications - Current Medications Current Medications: Generic Name Dose Route Start Last Admin Trade Name Freq PRN Reason Stop Dose Admin Acetaminophen 650 mg 08/10/19 04:44 Tylenol PO Q4H PRN Pain MILD(1-3)/Fever >100.5/SAINZ Dextrose 50 ml 08/10/19 04:44 D50w (25gm) Syringe IV Q30MIN PRN Hypoglycemia Protocol Enoxaparin Sodium 40 mg 08/11/19 12:00 08/15/19 11:21 Enoxaparin SUB-Q 40 mg DAILY JULITA Administration Famotidine 20 mg 08/12/19 14:00 08/15/19 11:22 Pepcid IV 20 mg BID JULITA Administration Hydromorphone HCl 1 mg 08/11/19 11:46 08/15/19 11:22 Dilaudid IV 1 mg Q4H PRN Administration Pain , Severe (7-10) Hydrophilic Ointment 1 applic 08/12/19 05:06 08/12/19 05:41 Vaseline Lip Therapy TP 1 applic DIRECT PRN Administration Dry Lips Sodium Chloride 1,000 mls @ 75 mls/hr 08/11/19 11:00 08/14/19 21:21 Nacl 0.9% 1000 Ml IV 75 mls/hr DIRECT JULITA Administration Insulin Glargine 10 units 08/14/19 22:00 08/14/19 21:21 Lantus SUB-Q 10 units QHS JULITA Administration Insulin Human Lispro 0 unit 08/10/19 07:30 08/15/19 12:38 Humalog SUB-Q 3 unit ACHS JULITA Administration Protocol Labetalol HCl 10 mg 08/11/19 22:44 08/15/19 12:39 Labetalol IV 10 mg Q10MIN PRN Administration Hypertension Ondansetron HCl 4 mg 08/10/19 04:44 08/12/19 09:43 Zofran IV 4 mg Q8H PRN Administration Nausea And Vomiting Phenol 1 spray 08/13/19 16:22 08/14/19 05:05 Chloraseptic MM 1 spray PRN PRN Administration Sore Throat Sodium Chloride 10 ml 08/10/19 10:00 08/15/19 11:22 Sodium Chloride Flush Syringe 10 Ml IV 10 ml BID JULITA Administration Sodium Chloride 10 ml 08/10/19 04:44 Sodium Chloride Flush Syringe 10 Ml IV PRN PRN LINE FLUSH
[2019-08-15] MEDS: INSULIN GLARGINE 100 UNITS/ML SUB-Q SCH (21:53)
[2019-08-16] MEDS: HYDROmorphone 1 MG/1 ML INJ IV PRN ×3 (04:23→21:44)
[2019-08-16 05:13] LABS: BUN/Creatinine Ratio 8; Blood Urea Nitrogen 4 mg/dL (7-17); Calcium 8.9 mg/dL (8.4-10.2); Hemolysis Index 1
[2019-08-16] MEDS: INSULIN LISPRO 100 UNIT/ML SUB-Q SCH ×4 (08:27→22:01)
--- NOTE | 2019-08-16 08:58 | Progress Note ---
Assessment and Plan Assessment and plan: Partial small bowel obstruction. Etiology secondary to #2 Incarcerated incisional hernia. Primary fascial closure Morbid obesity. Will refer to bariatric surgeon at tertiary [facility] upon discharge. Weight loss will be imperative for the patient. Diabetes Mellitus Type 2. Cont. SSRI and accuchecks. Tight glycemic control History of PE. Cont. on Eliquis 08/12/2019. The patient was taken to the OR on 08/11/2019 diagnostic laparoscopy and found to have incarcerated incisional hernia and small bowel obstruction. Patient had open reduction of incarcerated incisional hernia, lysis of adhesions and primary fascial closure. Continue with supportive care with IV fluid hydration. Advance diet per surgery recommendations. PT/OT. 08/13/2019. Currently n.p.o. Advance diet per surgery. + Flatus. Continue NG tube on low intermittent suction. PT evaluation pending. 08/14/2019. Continue with NG tube on low intermittent suction per surgery. Continue strict I/Os. Continue NPO. Physical therapy evaluation pending. Add Lantus for tighter glycemic control. 08/15/2019 Patient with partial small bowel obstruction due to incarcerated incisional hernia s/p diagnostic laparoscopy, open reduction of incarcerated incisional hernia, lysis of adhesions and primary fascial closure by Dr. Lui, Surgeon. 08/16/2019 Patient with partial small bowel obstruction due to incarcerated inci sional hernia s/p diagnostic laparoscopy, open reduction of incarcerated incisional hernia, lysis of adhesions and primary fascial closure by Dr. Lui, Surgeon. NG tube removed. started on clear liquid diet,tolerating diet. Hopefully dc home soon. History Interval history: Abdominal pain better started on clear liquid diet Hospitalist Physical - Physical exam Narrative exam: GEN: Not in acute distress, morbidly obese, lying in bed HEENT: Normocephalic, atraumatic, Neck: supple, No JVD Lungs: Clear. No crackles heart;S1 and S2 reg, no murmurs, rubs or gallop Abd:soft, mild tender, non distended, abd binder over dressing over surgical wound, Ext: No edema, no clubbing, no cyanosis Neuro: Awake,alert,oriented X3,No focal neurological signs - Constitutional Vitals: Temp Pulse Resp BP Pulse Ox 97.8 F 86 20 168/75 99 08/16/19 03:40 08/16/19 03:40 08/16/19 03:40 08/16/19 04:22 08/16/19 03:40 General appearance: Present: no acute distress, well-nourished, obese (Morbidly obese) Results - Labs CBC & Chem 7: 08/14/19 04:16 08/16/19 04:14 Labs: Laboratory Last Values WBC 9.7 K/mm3 (4.5-11.0) 08/14/19 04:16 RBC 4.29 M/mm3 (3.65-5.03) 08/14/19 04:16 Hgb 10.6 gm/dl (10.1-14.3) 08/14/19 04:16 Hct 33.5 % (30.3-42.9) 08/14/19 04:16 MCV 78 fl (79-97) L 08/14/19 04:16 MCH 25 pg (28-32) L 08/14/19 04:16 MCHC 32 % (30-34) 08/14/19 04:16 RDW 19.3 % (13.2-15.2) H 08/14/19 04:16 Plt Count 421 K/mm3 (140-440) 08/14/19 04:16 Lymph % (Auto) 10.3 % (13.4-35.0) L 08/14/19 04:16 Harrison % (Auto) 8.1 % (0.0-7.3) H 08/14/19 04:16 Eos % (Auto) 5.5 % (0.0-4.3) H 08/14/19 04:16 Baso % (Auto) 0.4 % (0.0-1.8) 08/14/19 04:16 Lymph # 1.0 K/mm3 (1.2-5.4) L 08/14/19 04:16 Harrison # 0.8 K/mm3 (0.0-0.8) 08/14/19 04:16 Eos # 0.5 K/mm3 (0.0-0.4) H 08/14/19 04:16 Baso # 0.0 K/mm3 (0.0-0.1) 08/14/19 04:16 Seg Neutrophils % 75.7 % (40.0-70.0) H 08/14/19 04:16 Seg Neutrophils # 7.3 K/mm3 (1.8-7.7) 08/14/19 04:16 PT 14.5 Sec. (12.2-14.9) 08/11/19 05:03 INR 1.12 (0.87-1.13) 08/11/19 05:03 Sodium 144 mmol/L (137-145) 08/16/19 04:14 Potassium 3.3 mmol/L (3.6-5.0) L 08/16/19 04:14 Chloride 104.9 mmol/L (98-107) 08/16/19 04:14 Carbon Dioxide 26 mmol/L (22-30) 08/16/19 04:14 Anion Gap 16 mmol/L 08/16/19 04:14 BUN 4 mg/dL (7-17) L 08/16/19 04:14 Creatinine 0.5 mg/dL (0.7-1.2) L 08/16/19 04:14 Estimated GFR > 60 ml/min 08/16/19 04:14 BUN/Creatinine Ratio 8 % 08/16/19 04:14 Glucose 148 mg/dL (65-100) H 08/16/19 04:14 POC Glucose 152 (70-105) H 08/16/19 08:17 Calcium 8.9 mg/dL (8.4-10.2) 08/16/19 04:14 Total Bilirubin 0.50 mg/dL (0.1-1.2) 08/10/19 01:01 Direct Bilirubin < 0.2 mg/dL (0-0.2) 08/10/19 01:01 Indirect Bilirubin 0.3 mg/dL 08/10/19 01:01 AST 14 units/L (5-40) 08/10/19 01:01 ALT 11 units/L (7-56) 08/10/19 01:01 Alkaline Phosphatase 81 units/L (35-129) 08/10/19 01:01 Total Protein 8.5 g/dL (6.3-8.2) H 08/10/19 01:01 Albumin 3.8 g/dL (3.9-5) L 08/10/19 01:01 Albumin/Globulin Ratio 0.8 % 08/10/19 01:01 Lipase 11 units/L (13-60) L 08/10/19 01:01 Urine Color Yellow (Yellow) 08/11/19 Unknown Urine Turbidity Clear (Clear) 08/11/19 Unknown Urine pH 5.0 (5.0-7.0) 08/11/19 Unknown Ur Specific Fleming 1.012 (1.003-1.030) 08/11/19 Unknown Urine Protein <15 mg/dl mg/dL (Negative) 08/11/19 Unknown Urine Glucose (UA) >=500 mg/dL (Negative) 08/11/19 Unknown Urine Ketones 20 mg/dL (Negative) 08/11/19 Unknown Urine Blood Mod (Negative) 08/11/19 Unknown Urine Nitrite Neg (Negative) 08/11/19 Unknown Urine Bilirubin Neg (Negative) 08/11/19 Unknown Urine Urobilinogen < 2.0 mg/dL (<2.0) 08/11/19 Unknown Ur Leukocyte Esterase Neg (Negative) 08/11/19 Unknown Urine WBC (Auto) 2.0 /HPF (0.0-6.0) 08/11/19 Unknown Urine RBC (Auto) 12.0 /HPF (0.0-6.0) 08/11/19 Unknown U Epithel Cells (Auto) 3.0 /HPF (0-13.0) 08/11/19 Unknown Urine Mucus Few /HPF 08/11/19 Unknown Nasal Screen MRSA (PCR) Negative (Negative) 08/12/19 16:30 Blood Type A POSITIVE 08/11/19 15:00 Antibody Screen Negative 08/11/19 15:00 Bob/IV: Voiding Method External Female Catheter IV Catheter Type [Right Peripheral IV Forearm] IV Catheter Type [Left Peripheral IV Antecubital] Active Medications - Current Medications Current Medications: Generic Name Dose Route Start Last Admin Trade Name Freq PRN Reason Stop Dose Admin Acetaminophen 650 mg 08/10/19 04:44 Tylenol PO Q4H PRN Pain MILD(1-3)/Fever >100.5/SAINZ Dextrose 50 ml 08/10/19 04:44 D50w (25gm) Syringe IV Q30MIN PRN Hypoglycemia Protocol Enoxaparin Sodium 40 mg 08/11/19 12:00 08/15/19 11:21 Enoxaparin SUB-Q 40 mg DAILY JULITA Administration Famotidine 20 mg 08/12/19 14:00 08/15/19 21:54 Pepcid IV 20 mg BID JULITA Administration Hydromorphone HCl 1 mg 08/11/19 11:46 08/16/19 04:23 Dilaudid IV 1 mg Q4H PRN Administration Pain , Severe (7-10) Hydrophilic Ointment 1 applic 08/12/19 05:06 08/12/19 05:41 Vaseline Lip Therapy TP 1 applic DIRECT PRN Administration Dry Lips Potassium Chloride/Sodium Chloride 20 meq in 1,000 mls @ 75 mls/hr 08/16/19 08:00 Ns 0.45/Kcl 20meq IV DIRECT JULITA Insulin Glargine 10 units 08/14/19 22:00 08/15/19 21:53 Lantus SUB-Q 10 units QHS JULITA Administration Insulin Human Lispro 0 unit 08/10/19 07:30 08/16/19 08:27 Humalog SUB-Q 2 unit ACHS JULITA Administration Protocol Ondansetron HCl 4 mg 08/10/19 04:44 08/12/19 09:43 Zofran IV 4 mg Q8H PRN Administration Nausea And Vomiting Phenol 1 spray 08/13/19 16:22 08/14/19 05:05 Chloraseptic MM 1 spray PRN PRN Administration Sore Throat Sodium Chloride 10 ml 08/10/19 10:00 08/15/19 21:55 Sodium Chloride Flush Syringe 10 Ml IV 10 ml BID JULITA Administration Sodium Chloride 10 ml 08/10/19 04:44 Sodium Chloride Flush Syringe 10 Ml IV PRN PRN LINE FLUSH
[2019-08-16] MEDS: FAMOTIDINE 20 MG/2 ML INJ IV SCH ×2 (10:17→21:49)
[2019-08-16] MEDS: ENOXAPARIN 40 MG/0.4 ML INJ SUB-Q SCH (10:17)
[2019-08-16] MEDS: DOCUSATE SODIUM 100 MG/10 ML ORAL LIQD PO SCH ×3 (11:08→21:52)
[2019-08-16] MEDS: NACL 0.45%/KCL 20 MEQ 20 MEQ/1,000 ML BAG IV SCH (11:09)
--- NOTE | 2019-08-16 14:32 | Progress Note ---
Assessment and Plan 48-year-old female status post diagnostic laparoscopy, open reduction of incarcerated incisional hernia, primary fascial closure, POD 5 1. Partial small bowel obstruction 2/2 #2 2. Incisional hernia 3. Morbid obesity 4. Diabetes -poorly controlled 5. History of PE on Eliquis Plan: 1. Advance to soft diet for dinner 2. strict I/Os 3. prn pain control -we will transition to p.o. Percocet 4. Okay to DC IV fluids 5. OOB/ambulate/up to chair- PT consult 6. DVT prophylaxis -Lovenox 7. Abdominal binder at all times 8. Strict glucose control 9. GI ppx 10. May resume Eliquis along with other home medications 11. If patient tolerates soft diet, she is cleared for discharge from surgery standpoint. The patient was advised to follow-up in the office in 10 days. She was given the information to call and make an appointment. Discharge instructions were discussed with her verbally. Discussed with Dr. Huerta Thank you, please call with questions. Evaluation and treatment of this patient was during the time of the national and state emergency arising from COVID19 coronavirus pandemic. Treatment and procedures performed meet the current and available best practice and guidelines for patient during the COVID pandemic. Subjective Date of service: 08/16/19 Narrative: In and examined. She has no complaints. No overnight events. No fevers, chills. She tolerated a clear liquid diet. She denies nausea or vomiting. She is passing flatus and had 2 bowel movements today. She has been out of bed and ambulating. Objective Vital Signs - 12hr 08/16/19 08/16/19 08/16/19 03:40 04:22 08:03 Temperature 97.8 F 98.0 F Pulse Rate 86 70 Respiratory 20 18 Rate Blood Pressure 168/75 168/75 178/72 O2 Sat by Pulse 99 98 Oximetry 08/16/19 11:21 Temperature 98.4 F Pulse Rate 72 Respiratory 18 Rate Blood Pressure 176/51 O2 Sat by Pulse 99 Oximetry - General physical appearance Narrative Exam: Gen.: Awake, alert, oriented 3. No apparent distress ENT: Trachea midline. No lymphadenopathy. No scleral icterus or conjunctival pallor CV: S1, S2 present Respiratory: No audible wheezes Abdomen: Obese, soft, nondistended, nontender. Midline incision clean, dry, intact. Abdominal binder in place. No rebound, rigidity, guarding Extremities: No clubbing, cyanosis, edema - Labs 08/14/19 04:16 08/16/19 04:14 Diabetes panel 08/16/19 Range/Units 04:14 Sodium 144 (137-145) mmol/L Potassium 3.3 L (3.6-5.0) mmol/L Chloride 104.9 (98-107) mmol/L Carbon Dioxide 26 (22-30) mmol/L BUN 4 L (7-17) mg/dL Creatinine 0.5 L (0.7-1.2) mg/dL Glucose 148 H (65-100) mg/dL Calcium 8.9 (8.4-10.2) mg/dL Calcium panel 08/16/19 Range/Units 04:14 Calcium 8.9 (8.4-10.2) mg/dL Pituitary panel 08/16/19 Range/Units 04:14 Sodium 144 (137-145) mmol/L Potassium 3.3 L (3.6-5.0) mmol/L Chloride 104.9 (98-107) mmol/L Carbon Dioxide 26 (22-30) mmol/L BUN 4 L (7-17) mg/dL Creatinine 0.5 L (0.7-1.2) mg/dL Glucose 148 H (65-100) mg/dL Calcium 8.9 (8.4-10.2) mg/dL Adrenal panel 08/16/19 Range/Units 04:14 Sodium 144 (137-145) mmol/L Potassium 3.3 L (3.6-5.0) mmol/L Chloride 104.9 (98-107) mmol/L Carbon Dioxide 26 (22-30) mmol/L BUN 4 L (7-17) mg/dL Creatinine 0.5 L (0.7-1.2) mg/dL Glucose 148 H (65-100) mg/dL Calcium 8.9 (8.4-10.2) mg/dL
[2019-08-16] MEDS ORDERED: NON-FORMULARY EACH (Fluticasone/Vilanterol [Breo Ellipta 200-25 Mcg Inh] 1 EACH) IH SCH (14:45)
[2019-08-16] MEDS ORDERED: NON-FORMULARY EACH (Losartan [Cozaar] 100 MG) PO SCH (14:45)
[2019-08-16] MEDS: carvediloL 12.5 MG TAB PO SCH ×2 (17:20→21:49)
[2019-08-16] MEDS: APIXABAN 5 MG TAB PO SCH ×2 (17:20→21:49)
[2019-08-16] MEDS: LOSARTAN 50 MG TAB PO SCH (17:20)
[2019-08-16] MEDS: oxyCODONE /ACETAMINOPHEN 5-325MG TAB PO PRN (18:32)
[2019-08-16] MEDS ORDERED: ARFORMOTEROL 15 MCG/2 ML NEBU IH SCH (20:00)
[2019-08-16] MEDS ORDERED: BUDESONIDE 0.5 MG/2 ML NEBU IH SCH (20:00)
[2019-08-16] MEDS: GABAPENTIN 300 MG CAP PO SCH (21:48)
[2019-08-16] MEDS: hydrALAZINE 25 MG TAB PO SCH (21:49)
[2019-08-16] MEDS ORDERED: INSULIN GLARGINE 100 UNITS/ML SUB-Q SCH (22:00)
[2019-08-17] MEDS: NACL 0.45%/KCL 20 MEQ 20 MEQ/1,000 ML BAG IV SCH (02:37)
[2019-08-17] MEDS: oxyCODONE /ACETAMINOPHEN 5-325MG TAB PO PRN ×2 (02:37→09:29)
[2019-08-17] MEDS: hydrALAZINE 25 MG TAB PO SCH ×2 (06:45→13:42)
[2019-08-17] MEDS: GABAPENTIN 300 MG CAP PO SCH ×2 (06:46→13:42)
[2019-08-17] MEDS: HYDROmorphone 1 MG/1 ML INJ IV PRN (06:46)
--- NOTE | 2019-08-17 09:22 | Discharge Summary ---
<LIZBETH LUI - Last Filed: 08/17/19 12:00> Providers - Providers Date of Admission: 08/10/19 04:14 Attending physician: DARRYL PAYAN 08/10/19 02:55 Consult to Physician [CONS] Routine Comment: Dr. Zhong spoke with Dr. 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 Continue wearing abdominal binder at all times. May remove when sleeping and during showers. Ok to shower, do not submerge incisions in water such as bath tubs, pools, or hottubs. Pat incision dry and do not scrub Follow up with: PRIMARY CARE, [Primary Care Provider] - 3-5 Days LIZBETH LUI DO [Staff Physician] - 10 Days Prescriptions: Famotidine [Pepcid] 20 mg PO BID #30 tablet oxyCODONE /ACETAMINOPHEN [Percocet 5/325 mg] 1 tab PO Q6H PRN #20 tablet PRN Reason: Pain, Moderate (4-6) <DARRYL PAYAN - Last Filed: 09/01/19 11:06> Providers - Providers Date of Admission: 08/10/19 04:14 Date of discharge: 08/17/19 Attending physician: DARRYL PAYAN 08/10/19 02:55 Consult to Physician [CONS] Routine Comment: Dr. Zhong spoke with Dr. 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 Patient has known history of bowel obstructions and has had robotic laparoscopy in the past. She was seen at [facility] about a month ago for bowel obstruction at which time she was placed on NG tube. There is no no relieving or exacerbating factor for abdominal pain. She denies any fever or chills, no chest pain or shortness of breath, no headache or dizziness. Work-up in the emergency room including CT of the abdomen and pelvis reveals possible small bowel obstruction. She was admitted, evaluated by surgeon. She had diagnostic laparoscopy, open reduction of incarcerated incisional hernia, lysis of adhesions and primary fascial closure by Dr. Lui, Surgeon. Post operatively ,she improved and was discharged home on 08/21/19 Partial small bowel obstruction. Incarcerated incisional hernia. Primary fascial closure Morbid obesity. Will refer to bariatric surgeon at tertiary care hospital upon discharge. Weight loss will be imperative for the patient. Diabetes Mellitus Type 2. Cont. SSRI and accuchecks. Tight glycemic control History of Pulmonary Embolism. Continue on Eliquis 08/12/2019. The patient was taken to the OR on 08/11/2019 diagnostic laparoscopy and found to have incarcerated incisional hernia and small bowel obstruction. Patient had open reduction of incarcerated incisional hernia, lysis of adhesions and primary fascial closure. Continue with supportive care with IV fluid hydration. Advance diet per surgery recommendations. PT/OT. 08/13/2019. Currently n.p.o. Advance diet per surgery. + Flatus. Continue NG tube on low intermittent suction. PT evaluation pending. 08/14/2019. Continue with NG tube on low intermittent suction per surgery. Continue strict I/Os. Continue NPO. Physical therapy evaluation pending. Add Lantus for tighter glycemic control. 08/15/2019 Patient with partial small bowel obstruction due to incarcerated incisional hernia s/p diagnostic laparoscopy, open reduction of incarcerated incisional hernia, lysis of adhesions and primary fascial closure by Dr. Lui, Surgeon. 08/16/2019 Patient with partial small bowel obstruction due to incarcerated incisional hernia s/p diagnostic laparoscopy, open reduction of incarcerated incisional hernia, lysis of adhesions and primary fascial closure by Dr. Lui, Surgeon. NG tube removed. started on clear liquid diet,tolerating diet. Hopefully dc home soon. Total time spent on discharge, 32 mins Core Measure Documentation - Palliative Care Palliative Care/ Comfort Measures: Not Applicable - Core Measures Any of the following diagnoses?: none Exam - Constitutional Vitals: Temp Pulse Resp BP Pulse Ox 97.6 F 81 18 134/74 100 08/17/19 08:10 08/17/19 08:10 08/17/19 08:10 08/17/19 08:10 08/17/19 08:10 Plan Activity: advance as tolerated Diet: low fat, low cholesterol, low salt, diabetic, other (GI soft diet) Additional Instructions: 1.Follow up with PCP in 1 week. 2.Follow up with Dr. Lui, Surgeon in 10 days. 3.Continue home Oxygen
[2019-08-17] MEDS: INSULIN LISPRO 100 UNIT/ML SUB-Q SCH ×2 (09:28→12:41)
[2019-08-17] MEDS: APIXABAN 5 MG TAB PO SCH (09:29)
[2019-08-17] MEDS: DOCUSATE SODIUM 100 MG/10 ML ORAL LIQD PO SCH (09:29)
[2019-08-17] MEDS: LOSARTAN 50 MG TAB PO SCH (09:30)
[2019-08-17] MEDS: carvediloL 12.5 MG TAB PO SCH (09:30)
[2019-08-17] MEDS ORDERED: FAMOTIDINE 20 MG TAB PO SCH (10:00)
[2019-08-17 12:38] VITALS: BP 145/77
== END 2019-08-17 15:08 | disposition home or self-care (01) | DRG 336 ==
LOC: ED 00:17 → 4A 04:14
PROVIDERS: ADMIT Internal Medicine Geriatric Medicine; ATTEND Internal Medicine
PROC: 0WJF4ZZ Inspection of Abdominal Wall, Percutaneous Endoscopic Approach (ICD-10-PCS; principal; 2019-08-11)
PROC: 0WUF07Z Supplement Abdominal Wall with Autologous Tissue Substitute, Open Approach (ICD-10-PCS; 2019-08-11)
PROC: 0WJF4ZZ Inspection of Abdominal Wall, Percutaneous Endoscopic Approach (ICD-10-PCS; 2019-08-11)
PROC: 0DNU4ZZ Release Omentum, Percutaneous Endoscopic Approach (ICD-10-PCS; 2019-08-11)
DX: K43.0 Incisional hernia with obstruction, without gangrene (principal); K56.600 Partial intestinal obstruction, unspecified as to cause; Z68.45 Body mass index [BMI] 70 or greater, adult; E66.01 Morbid (severe) obesity due to excess calories; I10 Essential (primary) hypertension; J45.909 Unspecified asthma, uncomplicated; E11.65 Type 2 diabetes mellitus with hyperglycemia; D64.9 Anemia, unspecified; I11.0 Hypertensive heart disease with heart failure; I50.9 Heart failure, unspecified; Z86.711 Personal history of pulmonary embolism; Z90.49 Acquired absence of other specified parts of digestive tract; Z98.51 Tubal ligation status; Z91.041 Radiographic dye allergy status; Z88.1 Allergy status to other antibiotic agents; Z79.01 Long term (current) use of anticoagulants
CPT/HCPCS: 36415; 74018; 74019; 74176; 80048; 80076; 81001; 82962; 83690; 85025; 85027; 85610; 86850; 86900; 86901; 87641; 88302; 94640; G0378; J0330; J0690; J1170; J1650; J1815; J2270; J2370; J2405; J2704; J2710; J3010; J7030; J7120

== ENCOUNTER 2020-06-22 08:13 | Observation (INO) | payer SELFPAY ==
[2020-06-22] MEDS ORDERED: ONDANSETRON 4 MG/2 ML INJ IV ONE (08:28)
[2020-06-22] MEDS ORDERED: MORPHINE 4 MG/1 ML INJ IV ONE (08:28)
--- NOTE | 2020-06-22 08:32 | Emergency Department Report ---
<DARRYL THOMAS - Last Filed: 06/22/20 15:32> ED General Adult HPI - General Chief complaint: Dyspnea/Respdistress Stated complaint: SOB PUI?: Yes Time Seen by Provider: 06/22/20 08:15 Source: patient, EMS ( EMS documentation not available at time of chart dictation ), RN notes reviewed, old records reviewed Mode of arrival: Stretcher Limitations: Physical Limitation - History of Present Illness Initial comments: The patient was evaluated in the emergency department for symptoms described in the history of present illness. He/she was evaluated in the context of the global COVID-19 pandemic, which necessitated consideration that the patient might be at risk for infection with the virus that causes COVID-19. Institutional protocols and algorithms that pertain to the evaluation of patients at risk for COVID-19 are in a state of rapid change based on information released by regulatory bodies including the CDC and federal and state organizations. These policies and algorithms were followed during the patient's care in the emergency department. Please note that these policies, procedures and recommendations changed on a rapid basis. Past medical history: Partial small bowel obstruction, hypertension, diabetes, CHF, pulmonary embolism, morbid obesity, noncompliant with Eliquis, incarcerated incisional hernia, and small bowel obstruction. The patient is a 49-year-old female, who is not known to myself previously, presenting to the hospital with EMS with a complaint of shortness of breath, abdominal pain, and leg swelling. Symptoms have been present for about 3 to 4 days. No fever. No loss of taste or smell. Positive nausea. No vomiting. No diarrhea. No urinary symptoms. No chest pain. Shortness of breath worsened with physical exertion. Decreased with rest. Abdominal pain is diffuse, increases with palpation and decreases with rest and position. Patient reports being admitted to [facility] last month for recurrent bowel obstruction and mesh replacement. She also endorses on review of systems bilateral lower extremity swelling and increased size. Patient is not sure who her transport operations inspector is. Patient denies loss of taste and smell, fever, and Covid exposure. -: Gradual, days(s) Location: abdomen, left, right, lower extremity Radiation: non-radiation Quality: aching Consistency: constant Improves with: rest Worsens with: movement - Related Data Home Medications Medication Instructions Recorded Confirmed Last Taken Albuterol Mdi (or & Nicu Only) 2 puff IH QID PRN 05/13/19 08/12/19 08/11/19 [ProAir HFA Inhaler] Fluticasone/Vilanterol [Breo 1 each IH QDAY 05/13/19 08/12/19 08/10/19 Ellipta 200-25 Mcg INH] Gabapentin 300 mg PO Q8HR 05/13/19 08/12/19 05/12/19 Insulin Aspart (Nf) [NovoLOG 40 units SQ BID 05/13/19 08/12/19 08/10/19 Flexpen] Losartan [Cozaar] 100 mg PO QDAY 05/13/19 08/12/19 08/10/19 Semaglutide [Ozempic] 0.25 mg SQ 1XW 05/13/19 08/12/19 Unknown amLODIPine 10 mg PO DAILY 05/13/19 08/12/19 08/10/19 hydrALAZINE [Apresoline TAB] 25 mg PO Q8HR 05/13/19 08/12/19 05/12/19 Previous Rx's Medication Instructions Recorded Last Taken Type Apixaban [Eliquis] 5 mg PO BID #60 tablet 05/14/19 08/12/19 Rx Arformoterol Nebu [Brovana Nebu] 15 mcg IH Q12HRT ml 05/14/19 Unknown Rx Gabapentin 300 mg PO Q8HR capsule 05/14/19 Unknown Rx Insulin Degludec [Tresiba 50 unit SQ QHS #5 pen 05/14/19 Unknown Rx Flextouch U-200] Losartan [Cozaar] 100 mg PO QDAY tablet 05/14/19 08/10/19 Rx Torsemide [Demadex] 20 mg PO BID #60 05/14/19 Unknown Rx amLODIPine 10 mg PO DAILY tablet 05/14/19 08/10/19 Rx carvediloL [Coreg] 12.5 mg PO BID tablet 05/14/19 08/10/19 Rx Famotidine [Pepcid] 20 mg PO BID #30 tablet 08/17/19 Unknown Rx oxyCODONE /ACETAMINOPHEN [Percocet 1 tab PO Q6H PRN #20 tablet 08/17/19 Unknown Rx 5/325 mg] Allergies Allergy/AdvReac Type Severity Reaction Status Date / Time vancomycin Allergy Anaphylaxis Verified 05/13/19 04:42 IVP dye Allergy Hives Uncoded 05/13/19 04:33 ED Review of Systems Constitutional: malaise, weakness. denies: fever Eyes: denies: eye discharge Respiratory: shortness of breath, SOB with exertion, SOB at rest Cardiovascular: edema. denies: chest pain Gastrointestinal: abdominal pain. denies: hematemesis, melena, hematochezia Genitourinary: denies: dysuria Musculoskeletal: myalgia Neurological: weakness Hematological/Lymphatic: denies: easy bleeding ED Past Medical Hx - Past Medical History Hx Hypertension: Yes Hx Heart Attack/AMI: No Hx Congestive Heart Failure: Yes Hx Diabetes: Yes Hx Pulmonary Embolism: Yes Hx Liver Disease: No Hx Renal Disease: No Hx Asthma: Yes Additional medical history: Morbid Obesity - Surgical History Hx Cholecystectomy: Yes Hx Appendectomy: Yes Additional Surgical History: Tibal Ligation, Hernia Repair - Social History Smoking Status: Never Smoker Substance Use Type: None - Medications Home Medications: Home Medications Medication Instructions Recorded Confirmed Last Taken Type Albuterol Mdi (or & Nicu Only) 2 puff IH QID PRN 05/13/19 08/12/19 08/11/19 History [ProAir HFA Inhaler] Fluticasone/Vilanterol [Breo 1 each IH QDAY 05/13/19 08/12/19 08/10/19 History Ellipta 200-25 Mcg INH] Gabapentin 300 mg PO Q8HR 05/13/19 08/12/19 05/12/19 History Insulin Aspart (Nf) [NovoLOG 40 units SQ BID 05/13/19 08/12/19 08/10/19 History Flexpen] Losartan [Cozaar] 100 mg PO QDAY 05/13/19 08/12/19 08/10/19 History Semaglutide [Ozempic] 0.25 mg SQ 1XW 05/13/19 08/12/19 Unknown History amLODIPine 10 mg PO DAILY 05/13/19 08/12/19 08/10/19 History hydrALAZINE [Apresoline TAB] 25 mg PO Q8HR 05/13/19 08/12/19 05/12/19 History Apixaban [Eliquis] 5 mg PO BID #60 tablet 05/14/19 08/12/19 08/12/19 Rx Arformoterol Nebu [Brovana Nebu] 15 mcg IH Q12HRT ml 05/14/19 08/12/19 Unknown Rx Gabapentin 300 mg PO Q8HR capsule 05/14/19 08/12/19 Unknown Rx Insulin Degludec [Tresiba 50 unit SQ QHS #5 pen 05/14/19 08/12/19 Unknown Rx Flextouch U-200] Losartan [Cozaar] 100 mg PO QDAY tablet 05/14/19 08/12/19 08/10/19 Rx Torsemide [Demadex] 20 mg PO BID #60 05/14/19 08/12/19 Unknown Rx amLODIPine 10 mg PO DAILY tablet 05/14/19 08/12/19 08/10/19 Rx carvediloL [Coreg] 12.5 mg PO BID tablet 05/14/19 08/12/19 08/10/19 Rx Famotidine [Pepcid] 20 mg PO BID #30 tablet 08/17/19 Unknown Rx oxyCODONE /ACETAMINOPHEN [Percocet 1 tab PO Q6H PRN #20 tablet 08/17/19 Unknown Rx 5/325 mg] ED Physical Exam - General Limitations: Physical Limitation General appearance: obese - Head Head exam: Present: atraumatic, normocephalic - Eye Eye exam: Present: normal appearance, EOMI. Absent: nystagmus - ENT ENT exam: Present: normal exam, normal orophraynx, mucous membranes moist, normal external ear exam - Neck Neck exam: Present: normal inspection, full ROM. Absent: tenderness, meningismus - Respiratory Respiratory exam: Present: decreased breath sounds. Absent: respiratory distress, wheezes, rales, rhonchi, stridor - Cardiovascular Cardiovascular Exam: Present: regular rate, normal rhythm, normal heart sounds. Absent: bradycardia, tachycardia, irregular rhythm, systolic murmur, diastolic murmur, rubs, gallop - GI/Abdominal GI/Abdominal exam: Present: soft, tenderness. Absent: distended, guarding, rebound, rigid, pulsatile mass - Extremities Exam Extremities exam: Present: normal inspection, full ROM, pedal edema (2-3+ edema in the bilateral lower extremities), other (2+ pulses noted in the bilateral upper and lower extremities. There is no palpable cord. negative Homans sign. Muscular compartments are soft. The pelvis is stable.). Absent: calf tenderness - Back Exam Back exam: Present: normal inspection. Absent: tenderness, CVA tenderness (R), CVA tenderness (L), paraspinal tenderness, vertebral tenderness - Neurological Exam Neurological exam: Present: alert, other (No facial droop. Tongue midline. Extraocular movements intact bilaterally. Facial sensation intact to light touch in V1, V2, V3 distribution bilaterally. 5 and a 5 strength in 4 extremities. Sensation intact to light touch in 4 extremities.) - Psychiatric Psychiatric exam: Present: anxious - Skin Skin exam: Present: warm, dry, intact, normal color. Absent: rash ED Course - Reevaluation(s) Reevaluation #1: 06/22/20 10:10 Differential diagnosis, including but not limited to: Pulmonary embolism, pneumonia, DVT, obstructive sleep apnea, pulmonary hypertension, deconditioning, coronary artery disease, COVID-19, obstruction, colitis, diverticulitis, hernia Assessment and plan: 49-year-old female who is morbidly obese, with multiple chronic medical conditions, noncompliance with systemic anticoagulation, reportedly has chronic respiratory failure and is on home oxygen, presenting to the ER with a complaint of shortness of breath, abdominal pain, lower extremity swelling. Place patient on isolation. Obtain appropriate laboratory studies, including Covid biomarkers. Obtain Covid testing. Obtain CT scan of the chest, abdomen pelvis with IV contrast to evaluate for pulmonary embolism, and postsurgical complications. Patient states she is not truly allergic to IV contrast, she reports that a while back, she was exposed to IV contrast and vancomycin concurrently, developed renal insufficiency. However, since then, she has had IV contrast without premedication, and reports that she does not have true anaphylactic or anaphylactoid symptoms or consequences secondary to contrast administration. We will also obtain bilateral lower extremity DVT study given her history of leg pain and leg swelling. However, this patient is extraordinarily obese, and I also suspect that her large body habitus, poor compliance, and chronic medical issues are likely contributing to her presentation today, and she most likely has pulmonary hypertension, obstructive sleep apnea, obesity hypoventilation syndrome, all likely contributing to her current presentation today. 06/22/20 11:19 DVT study is negative. CT scan chest, abdomen, pelvis not possible as the gantry was not able to lift the patient up to go through the CT scanner, patient has therefore treated the structural specifications of our CT scanner. We will reach out to [facility], and discussed with their ER staff as the patient reports that she was there last month for similar symptoms. 06/22/20 12:32 Multiple conversations had with prefabricated houses trimmer, Kathie Malin. We have ultimately arranged for this patient to be transferred to [facility], for acquisition of diagnostics which we are not able to obtain over here secondary to the patient's body habitus. Patient had a CT scan of her abdomen pelvis at that facility last month, and they believe they can accommodate the patient's body habitus. ER physician, Dr. Aria Rodriguez, has been gracious enough to assist in facilitating with this coordination of care. If CT scan of the abdomen pelvis shows an acute surgical complication, from patient's recent surgery there last month, patient will remain at [facility]. I have also discussed this plan of care and the patient's history and physical with covering general surgeon, Dr. Olvera, who is in agreement with this plan of care. If CT scans do not demonstrate any acute pathology, patient will be sent back here to this emergency room for definitive disposition. Patient is amenable to this plan of care. 06/22/20 13:32 Patient is resting comfortably at this time. She is in no acute distress at this time. Holding orders initiated. Will be approximately 3 hours until transportation comes here to pick the patient up. Systemic anticoagulation held in case patient has a surgical complication. Patient updated on plan of care. 06/22/20 15:32 EMS now here to take patient to [facility]. ED Medical Decision Making - Lab Data Result diagrams: 06/22/20 08:42 06/22/20 08:42 Vital Signs 06/22/20 06/22/20 06/22/20 08:26 08:37 08:44 Temperature 97.4 F L Pulse Rate 94 H 96 H Respiratory 24 26 H 34 H Rate Blood Pressure 178/86 O2 Sat by Pulse 96 99 100 Oximetry 06/22/20 06/22/20 06/22/20 08:46 09:00 09:16 Temperature Pulse Rate 91 H 88 93 H Respiratory 24 20 21 Rate Blood Pressure 163/62 177/58 O2 Sat by Pulse 98 99 99 Oximetry Lab Results 03/27/21 03/27/21 03/27/21 Range/Units 08:42 08:42 08:42 WBC 8.6 (4.5-11.0) K/mm3 RBC 4.08 (3.65-5.03) M/mm3 Hgb 10.5 (10.1-14.3) gm/dl Hct 32.8 (30.3-42.9) % MCV 80 (79-97) fl MCH 26 L (28-32) pg MCHC 32 (30-34) % RDW 17.0 H (13.2-15.2) % Plt Count 345 (140-440) K/mm3 Lymph % (Auto) 11.4 L (13.4-35.0) % Moore % (Auto) 6.7 (0.0-7.3) % Eos % (Auto) 3.7 (0.0-4.3) % Baso % (Auto) 0.5 (0.0-1.8) % Lymph # (Auto) 1.0 L (1.2-5.4) K/mm3 Moore # (Auto) 0.6 (0.0-0.8) K/mm3 Eos # (Auto) 0.3 (0.0-0.4) K/mm3 Baso # (Auto) 0.0 (0.0-0.1) K/mm3 Seg Neutrophils % 77.7 H (40.0-70.0) % Seg Neutrophils # 6.7 (1.8-7.7) K/mm3 PT 12.8 (12.2-14.9) Sec. INR 0.97 (0.87-1.13) D-Dimer 1404.26 H (0-234) ng/mlDDU Sodium 137 (137-145) mmol/L Potassium 4.1 (3.6-5.0) mmol/L Chloride 101.1 (98-107) mmol/L Carbon Dioxide 29 (22-30) mmol/L Anion Gap 11 mmol/L BUN 13 (7-17) mg/dL Creatinine 0.6 (0.6-1.2) mg/dL Estimated GFR > 60 ml/min BUN/Creatinine Ratio 22 % Glucose 85 (65-100) mg/dL Lactic Acid (0.7-2.0) mmol/L Calcium 9.3 (8.4-10.2) mg/dL Magnesium 1.90 (1.7-2.3) mg/dL Ferritin (10.0-200.0) ng/mL Total Bilirubin 0.40 (0.1-1.2) mg/dL Direct Bilirubin < 0.2 (0-0.2) mg/dL Indirect Bilirubin 0.2 mg/dL AST 21 (5-40) units/L ALT 25 (7-56) units/L Alkaline Phosphatase 110 (35-129) units/L Lactate Dehydrogenase 257 H (91-180) units/L Total Creatine Kinase (30-135) units/L Troponin T (0.00-0.029) ng/mL C-Reactive Protein 2.10 H (0.00-1.30) mg/dL NT-Pro-B Natriuret Pep (0-900) pg/mL Total Protein 7.5 (6.3-8.2) g/dL Albumin 3.4 L (3.9-5) g/dL Albumin/Globulin Ratio 0.8 % Lipase 13 (13-60) units/L Urine Color (Yellow) Urine Turbidity (Clear) Urine pH (5.0-7.0) Ur Specific [place] (1.003-1.030) Urine Protein (Negative) mg/dL Urine Glucose (UA) (Negative) mg/dL Urine Ketones (Negative) mg/dL Urine Blood (Negative) Urine Nitrite (Negative) Urine Bilirubin (Negative) Urine Urobilinogen (<2.0) mg/dL Ur Leukocyte Esterase (Negative) Urine WBC (Auto) (0.0-6.0) /HPF Urine RBC (Auto) (0.0-6.0) /HPF U Epithel Cells (Auto) (0-13.0) /HPF Urine Mucus /HPF 06/22/20 06/22/20 06/22/20 Range/Units 08:42 08:42 08:42 WBC (4.5-11.0) K/mm3 RBC (3.65-5.03) M/mm3 Hgb (10.1-14.3) gm/dl Hct (30.3-42.9) % MCV (79-97) fl MCH (28-32) pg MCHC (30-34) % RDW (13.2-15.2) % Plt Count (140-440) K/mm3 Lymph % (Auto) (13.4-35.0) % Moore % (Auto) (0.0-7.3) % Eos % (Auto) (0.0-4.3) % Baso % (Auto) (0.0-1.8) % Lymph # (Auto) (1.2-5.4) K/mm3 Moore # (Auto) (0.0-0.8) K/mm3 Eos # (Auto) (0.0-0.4) K/mm3 Baso # (Auto) (0.0-0.1) K/mm3 Seg Neutrophils % (40.0-70.0) % Seg Neutrophils # (1.8-7.7) K/mm3 PT (12.2-14.9) Sec. INR (0.87-1.13) D-Dimer (0-234) ng/mlDDU Sodium (137-145) mmol/L Potassium (3.6-5.0) mmol/L Chloride (98-107) mmol/L Carbon Dioxide (22-30) mmol/L Anion Gap mmol/L BUN (7-17) mg/dL Creatinine (0.6-1.2) mg/dL Estimated GFR ml/min BUN/Creatinine Ratio % Glucose (65-100) mg/dL Lactic Acid 1.00 (0.7-2.0) mmol/L Calcium (8.4-10.2) mg/dL Magnesium (1.7-2.3) mg/dL Ferritin 50.3 (10.0-200.0) ng/mL Total Bilirubin (0.1-1.2) mg/dL Direct Bilirubin (0-0.2) mg/dL Indirect Bilirubin mg/dL AST (5-40) units/L ALT (7-56) units/L Alkaline Phosphatase (35-129) units/L Lactate Dehydrogenase (91-180) units/L Total Creatine Kinase 41 (30-135) units/L Troponin T < 0.010 (0.00-0.029) ng/mL C-Reactive Protein (0.00-1.30) mg/dL NT-Pro-B Natriuret Pep (0-900) pg/mL Total Protein (6.3-8.2) g/dL Albumin (3.9-5) g/dL Albumin/Globulin Ratio % Lipase (13-60) units/L Urine Color (Yellow) Urine Turbidity (Clear) Urine pH (5.0-7.0) Ur Specific [place] (1.003-1.030) Urine Protein (Negative) mg/dL Urine Glucose (UA) (Negative) mg/dL Urine Ketones (Negative) mg/dL Urine Blood (Negative) Urine Nitrite (Negative) Urine Bilirubin (Negative) Urine Urobilinogen (<2.0) mg/dL Ur Leukocyte Esterase (Negative) Urine WBC (Auto) (0.0-6.0) /HPF Urine RBC (Auto) (0.0-6.0) /HPF U Epithel Cells (Auto) (0-13.0) /HPF Urine Mucus /HPF 06/22/20 06/22/20 Range/Units 08:42 09:00 WBC (4.5-11.0) K/mm3 RBC (3.65-5.03) M/mm3 Hgb (10.1-14.3) gm/dl Hct (30.3-42.9) % MCV (79-97) fl MCH (28-32) pg MCHC (30-34) % RDW (13.2-15.2) % Plt Count (140-440) K/mm3 Lymph % (Auto) (13.4-35.0) % Moore % (Auto) (0.0-7.3) % Eos % (Auto) (0.0-4.3) % Baso % (Auto) (0.0-1.8) % Lymph # (Auto) (1.2-5.4) K/mm3 Moore # (Auto) (0.0-0.8) K/mm3 Eos # (Auto) (0.0-0.4) K/mm3 Baso # (Auto) (0.0-0.1) K/mm3 Seg Neutrophils % (40.0-70.0) % Seg Neutrophils # (1.8-7.7) K/mm3 PT (12.2-14.9) Sec. INR (0.87-1.13) D-Dimer (0-234) ng/mlDDU Sodium (137-145) mmol/L Potassium (3.6-5.0) mmol/L Chloride (98-107) mmol/L Carbon Dioxide (22-30) mmol/L Anion Gap mmol/L BUN (7-17) mg/dL Creatinine (0.6-1.2) mg/dL Estimated GFR ml/min BUN/Creatinine Ratio % Glucose (65-100) mg/dL Lactic Acid (0.7-2.0) mmol/L Calcium (8.4-10.2) mg/dL Magnesium (1.7-2.3) mg/dL Ferritin (10.0-200.0) ng/mL Total Bilirubin (0.1-1.2) mg/dL Direct Bilirubin (0-0.2) mg/dL Indirect Bilirubin mg/dL AST (5-40) units/L ALT (7-56) units/L Alkaline Phosphatase (35-129) units/L Lactate Dehydrogenase (91-180) units/L Total Creatine Kinase (30-135) units/L Troponin T (0.00-0.029) ng/mL C-Reactive Protein (0.00-1.30) mg/dL NT-Pro-B Natriuret Pep 679.9 (0-900) pg/mL Total Protein (6.3-8.2) g/dL Albumin (3.9-5) g/dL Albumin/Globulin Ratio % Lipase (13-60) units/L Urine Color Yellow (Yellow) Urine Turbidity Clear (Clear) Urine pH 6.0 (5.0-7.0) Ur Specific [place] 1.010 (1.003-1.030) Urine Protein 30 mg/dl (Negative) mg/dL Urine Glucose (UA) Neg (Negative) mg/dL Urine Ketones Neg (Negative) mg/dL Urine Blood Neg (Negative) Urine Nitrite Neg (Negative) Urine Bilirubin Neg (Negative) Urine Urobilinogen < 2.0 (<2.0) mg/dL Ur Leukocyte Esterase Sm (Negative) Urine WBC (Auto) 3.0 (0.0-6.0) /HPF Urine RBC (Auto) 0.0 (0.0-6.0) /HPF U Epithel Cells (Auto) 2.0 (0-13.0) /HPF Urine Mucus Few /HPF - EKG Data -: EKG Interpreted by Ct EKG shows normal: sinus rhythm Rate: normal - EKG Data 06/22/20 10:06 EKG interpreted at 8: 35 AM. Sinus rhythm, 89 bpm. Left axis deviation, borderline left anterior fascicular block, poor R wave progression, motion artifact, QTC is prolonged, this EKG is not a STEMI. The EKG today appears to be fairly unchanged with compared to prior EKG from April 2019 - Radiology Data Radiology results: report reviewed, image reviewed CHEST 1 VIEW 06/22/2020 8:27 AM INDICATION / CLINICAL INFORMATION: acute dyspnea. COMPARISON: 05/13/19 FINDINGS: SUPPORT DEVICES: None. HEART / MEDIASTINUM: Heart is mildly enlarged for AP portable technique. LUNGS / PLEURA: No acute airspace or interstitial disease. No pneumothorax. ADDITIONAL FINDINGS: No significant additional findings. IMPRESSION: 1. Borderline cardiomegaly but no acute pulmonary or pleural findings. Signer Name: Tejas Ellis MD Signed: 06/22/2020 7:57 AM Workstation Name: [id number] Critical Care Time: Yes Critical care time in (mins) excluding proc time.: 35 ED Disposition Clinical Impression: Acute dyspnea, Morbid obesity, History of pulmonary embolism, Suspected 2019 novel coronavirus infection, Swelling of lower extremity, Acute abdominal pain, CHF exacerbation, Abdominal pain Disposition: -09 OP ADMIT IP TO THIS HOSP Is pt being admited?: No Does the pt Need Aspirin: No Condition: Good <KERRI JACKSON - Last Filed: 06/22/20 22:46> ED Review of Systems ROS: Stated complaint: SOB Other details as noted in HPI ED Course Vital Signs 06/22/20 06/22/20 06/22/20 08:26 08:37 08:44 Temperature 97.4 F L Pulse Rate 94 H 96 H Respiratory 24 26 H 34 H Rate Blood Pressure 178/86 Blood Pressure [Right] O2 Sat by Pulse 96 99 100 Oximetry 06/22/20 06/22/20 06/22/20 08:46 09:00 09:16 Temperature Pulse Rate 91 H 88 93 H Respiratory 24 20 21 Rate Blood Pressure 163/62 177/58 Blood Pressure [Right] O2 Sat by Pulse 98 99 99 Oximetry 06/22/20 06/22/20 06/22/20 10:17 10:30 11:08 Temperature Pulse Rate Respiratory Rate Blood Pressure 178/126 160/70 Blood Pressure [Right] O2 Sat by Pulse 98 100 100 Oximetry 06/22/20 06/22/20 06/22/20 11:30 12:00 12:30 Temperature Pulse Rate 85 76 90 Respiratory 18 36 H 18 Rate Blood Pressure 178/126 189/98 170/77 Blood Pressure [Right] O2 Sat by Pulse 100 98 100 Oximetry 06/22/20 06/22/20 06/22/20 13:00 13:30 14:00 Temperature Pulse Rate 68 79 80 Respiratory 17 17 16 Rate Blood Pressure 172/91 163/79 156/71 Blood Pressure [Right] O2 Sat by Pulse 100 99 100 Oximetry 06/22/20 06/22/20 06/22/20 14:31 15:01 15:31 Temperature Pulse Rate 84 72 85 Respiratory 16 14 15 Rate Blood Pressure 153/76 162/92 Blood Pressure [Right] O2 Sat by Pulse 100 99 100 Oximetry 06/22/20 06/22/20 06/22/20 20:28 21:56 21:57 Temperature Pulse Rate 92 H 75 Respiratory 18 16 16 Rate Blood Pressure Blood Pressure 159/66 154/64 [Right] O2 Sat by Pulse 99 100 Oximetry ED Medical Decision Making - Lab Data Result diagrams: 06/22/20 08:42 06/22/20 08:42 - Medical Decision Making Patient return for [facility]. ct report placed in chart CT angiogram chest impression: No evidence of central pulmonary embolism however, limited assessment of subsegmental branches. Worsening airspace disease in the right lung, multi lobar distribution. Bronchiectasis on the left and multiple nodules stable. Further evaluation recommended. Consider referral for pulmonary assessment. Left axillary adenopathy of indeterminate nature. This may be seen as a reactive process and could be reactive to systemic process or processes of the left upper extremity. These include abnormalities of the breast, arm, and postvaccination changes. CT abdomen pelvis IV contrast impression: Cardiomegaly with probable pulmonary edema Minimal bilateral perirenal stranding correlate for UTI Enlarged uterus with multiple masses extending into the bilateral adnexal regions. MRI with and without IV contrast is recommended for further evaluation Soft tissue thickening in the umbilicus region without evidence of bowel herniation Patient was return for [facility] since patient did not have an acute surgical abnormality abdomen and pelvis. Imaging results above reviewed and patient will be admitted for CHF exacerbation versus pneumonia/Covid as per Dr. Thomas recommendation Critical care attestation.: If time is entered above; I have spent that time in minutes in the direct care of this critically ill patient, excluding procedure time. ED Disposition Is pt being admited?: Yes Time of Disposition: 21:56 (DR Bell/hospitalist)
--- NOTE | 2020-06-22 09:02 | XRay Report ---
CHEST 1 VIEW 06/22/2020 8:27 AM INDICATION / CLINICAL INFORMATION: acute dyspnea. COMPARISON: 05/13/19 FINDINGS: SUPPORT DEVICES: None. HEART / MEDIASTINUM: Heart is mildly enlarged for AP portable technique. LUNGS / PLEURA: No acute airspace or interstitial disease. No pneumothorax. ADDITIONAL FINDINGS: No significant additional findings. IMPRESSION: 1. Borderline cardiomegaly but no acute pulmonary or pleural findings. Signer Name: Tejas Ellis MD Signed: 06/22/2020 8:57 AM Workstation Name: [id number]
[2020-06-22 09:03] LABS: Basophils % (Auto) 0.5 % (0.0-1.8); Eosinophils # (Auto) 0.3 K/mm3 (0.0-0.4); Eosinophils % (Auto) 3.7 % (0.0-4.3); Hematocrit 32.8 % (30.3-42.9); Hemoglobin 10.5 gm/dl (10.1-14.3); Lymphocytes % (Auto) 11.4 % (13.4-35.0); Mean Corpuscular HGB Conc 32 % (30-34); Mean Corpuscular Volume 80 fl (79-97); Monocytes # (Auto) 0.6 K/mm3 (0.0-0.8); Monocytes % (Auto) 6.7 % (0.0-7.3); Platelet Count 345 K/mm3 (140-440); Red Blood Count 4.08 M/mm3 (3.65-5.03)
[2020-06-22 09:12] LABS: INR 0.97 (0.87-1.13)
[2020-06-22 09:20] LABS: Bilirubin,Urine NEG (Negative); Blood,Urine NEG (Negative); Color,Urine Yellow (Yellow); Mucus,Urine FEW /HPF; Urobilinogen,Urine < 2.0 mg/dL (<2.0)
[2020-06-22 09:30] LABS: Alanine Aminotransferase 25 units/L (7-56); Albumin 3.4 g/dL (3.9-5); Blood Urea Nitrogen 13 mg/dL (7-17); Calcium 9.3 mg/dL (8.4-10.2); Hemolysis Index 0
[2020-06-22 09:46] LABS: BUN/Creatinine Ratio 22; Bilirubin,Direct < 0.2 mg/dL (0-0.2)
--- NOTE | 2020-06-22 11:08 | Vascular Lab Report ---
DUPLEX DOPPLER LOWER EXTREMITY VEINS, BILATERAL INDICATION / CLINICAL INFORMATION: Bilateral lower extremity swelling. TECHNIQUE: Duplex doppler imaging was performed through the veins of both lower extremities using elvin ous compression and other maneuvers. COMPARISON: None available. FINDINGS: RIGHT COMMON FEMORAL VEIN: Negative. RIGHT FEMORAL VEIN: Negative. RIGHT POPLITEAL VEIN: Negative. RIGHT CALF VEINS: Negative. LEFT COMMON FEMORAL VEIN: Negative. LEFT FEMORAL VEIN: Negative. LEFT POPLITEAL VEIN: Negative. LEFT CALF VEINS: Negative. ADDITIONAL FINDINGS: None. IMPRESSION: 1. No sonographic evidence for DVT in either lower extremity. Signer Name: Tejas Ellis MD Signed: 06/22/2020 11:04 AM Workstation Name: [id number]
[2020-06-22] MEDS ORDERED: ACETAMINOPHEN 325 MG TAB PO PRN (13:31)
[2020-06-22] MEDS: MORPHINE 4 MG/1 ML INJ IV PRN ×3 (13:40→21:56)
[2020-06-22] MEDS ORDERED: ALBUTEROL 8.5 GM MDI INHALATION IH PRN (22:12)
[2020-06-22] MEDS ORDERED: DEXTROSE 50% IN WATER (25GM) 50 ML SYRINGE IV PRN (22:16)
--- NOTE | 2020-06-22 22:29 | History and Physical Report ---
History of Present Illness Date of examination: 06/22/20 Date of admission: 06/22/20 Chief complaint: Shortness of breath Respiratory distress Swelling of the legs History of present illness: 49-year-old female with history of hypertension diabetes CHF pulmonary embolism morbid obesity partial small bowel obstruction, incarcerated incisional hernia and a small bowel obstruction was brought to the emergency room because of shortness of breath, abdominal pain, and leg swelling for about 3 to 4 days. No fever. No loss of taste or smell. Positive nausea. No vomiting. No diarrhea. No urinary symptoms. No chest pain. Shortness of breath worsened with physical exertion. Decreased with rest. Abdominal pain is diffuse, increases with palpation and decreases with rest and position. Patient reports being admitted to [facility] last month for recurrent bowel obstruction and mesh replacement. She also endorses on review of systems bilateral lower extremity swelling and increased size. Patient is not sure who her supervisor carton and can supply is. In the emergency room patient is found to have CHF exacerbation and complaint of swelling of the body and legs. Past History Past Medical History: diabetes, heart failure, hypertension, pulmonary embolism Medications and Allergies Allergies Allergy/AdvReac Type Severity Reaction Status Date / Time vancomycin Allergy Anaphylaxis Verified 05/13/19 04:42 IVP dye Allergy Hives Uncoded 05/13/19 04:33 Home Medications Medication Instructions Recorded Confirmed Last Taken Type Albuterol Mdi (or & Nicu Only) 2 puff IH QID PRN 05/13/19 08/12/19 08/11/19 History [ProAir HFA Inhaler] Fluticasone/Vilanterol [Breo 1 each IH QDAY 05/13/19 08/12/19 08/10/19 History Ellipta 200-25 Mcg INH] Gabapentin 300 mg PO Q8HR 05/13/19 08/12/19 05/12/19 History Insulin Aspart (Nf) [NovoLOG 40 units SQ BID 05/13/19 08/12/19 08/10/19 History Flexpen] Losartan [Cozaar] 100 mg PO QDAY 05/13/19 08/12/19 08/10/19 History Semaglutide [Ozempic] 0.25 mg SQ 1XW 05/13/19 08/12/19 Unknown History amLODIPine 10 mg PO DAILY 05/13/19 08/12/19 08/10/19 History hydrALAZINE [Apresoline TAB] 25 mg PO Q8HR 05/13/19 08/12/19 05/12/19 History Apixaban [Eliquis] 5 mg PO BID #60 tablet 05/14/19 08/12/19 08/12/19 Rx Arformoterol Nebu [Brovana Nebu] 15 mcg IH Q12HRT ml 05/14/19 08/12/19 Unknown Rx Gabapentin 300 mg PO Q8HR capsule 05/14/19 08/12/19 Unknown Rx Insulin Degludec [Tresiba 50 unit SQ QHS #5 pen 05/14/19 08/12/19 Unknown Rx Flextouch U-200] Losartan [Cozaar] 100 mg PO QDAY tablet 05/14/19 08/12/19 08/10/19 Rx Torsemide [Demadex] 20 mg PO BID #60 05/14/19 08/12/19 Unknown Rx amLODIPine 10 mg PO DAILY tablet 05/14/19 08/12/19 08/10/19 Rx carvediloL [Coreg] 12.5 mg PO BID tablet 05/14/19 08/12/19 08/10/19 Rx Famotidine [Pepcid] 20 mg PO BID #30 tablet 08/17/19 Unknown Rx oxyCODONE /ACETAMINOPHEN [Percocet 1 tab PO Q6H PRN #20 tablet 08/17/19 Unknown Rx 5/325 mg] Active Meds: Active Medications Acetaminophen (Acetaminophen 325 Mg Tab) 650 mg PO Q6HR PRN PRN Reason: PAIN Albuterol (Albuterol 8.5 Gm Mdi Inhalation) 2 puff IH QID PRN PRN Reason: Shortness Of Breath Amlodipine Besylate (Amlodipine 10 Mg Tab) 10 mg PO DAILY JULITA Apixaban (Apixaban 5 Mg Tab) 5 mg PO BID JULITA; Protocol Arformoterol Tartrate (Arformoterol 15 Mcg/2 Ml Nebu) 15 mcg IH Q12HRT JULITA Aspirin (Aspirin 81 Mg Tab Chew) 81 mg PO QDAY JULITA Carvedilol (Carvedilol 12.5 Mg Tab) 12.5 mg PO BID JULITA Dextrose (Dextrose 50% In Water (25gm) 50 Ml Syringe) 50 ml IV Q30MIN PRN; Protocol PRN Reason: Hypoglycemia Famotidine (Famotidine 20 Mg Tab) 20 mg PO BID JULITA Furosemide (Furosemide 40 Mg/4 Ml Inj) 40 mg IV BID@0600,1800 JULITA Gabapentin (Gabapentin 300 Mg Cap) 300 mg PO Q8HR JULITA Hydralazine HCl (Hydralazine 25 Mg Tab) 25 mg PO Q8HR JULITA Insulin Human Lispro (Insulin Lispro 100 Unit/Ml) 0 unit SUB-Q ACHS JULITA; [place] col Losartan Potassium (Losartan 50 Mg Tab) 100 mg PO QDAY JULITA Miscellaneous Medication (Fluticasone/Vilanterol [Breo Ellipta 200-25 Mcg Inh]) 1 each IH QDAY JULITA Morphine Sulfate (Morphine 4 Mg/1 Ml Inj) 4 mg IV Q4HR PRN PRN Reason: Pain , Severe (7-10) Last Admin: 06/22/20 21:56 Dose: 4 mg Documented by: Ondansetron HCl (Ondansetron 4 Mg Odt Tab) 4 mg PO Q6HR PRN PRN Reason: Nausea Oxycodone/Acetaminophen (Oxycodone /Acetaminophen 5-325mg Tab) 1 tab PO Q6H PRN PRN Reason: Pain, Moderate (4-6) Review of Systems Constitutional: weight gain Cardiovascular: orthopnea, shortness of breath, dyspnea on exertion, leg edema Respiratory: shortness of breath, dyspnea on exertion Exam - Constitutional Vitals: Temp Pulse Resp BP Pulse Ox 97.4 F L 75 16 154/64 100 06/22/20 08:26 06/22/20 21:57 06/22/20 21:57 06/22/20 21:57 06/22/20 21:57 General appearance: Present: no acute distress, well-nourished - EENT Eyes: Present: PERRL ENT: hearing intact, clear oral mucosa - Neck Neck: Present: supple, normal ROM - Respiratory Respiratory effort: normal Respiratory: bilateral: rales - Cardiovascular Heart Sounds: Present: S1 & S2. Absent: rub, click - Extremities Extremities: pulses symmetrical Extremity abnormal: edema Peripheral Pulses: within normal limits - Abdominal General gastrointestinal: Present: soft, non-tender, non-distended, normal bowel sounds Female genitourinary: Present: normal - Integumentary Integumentary: Present: clear, warm, dry - Musculoskeletal Musculoskeletal: gait normal, strength equal bilaterally - Psychiatric Psychiatric: appropriate mood/affect, intact judgment & insight - Neurologic Neurologic: CNII-XII intact, moves all extremities HEART Score - HEART Score Troponin: Troponin T < 0.010 ng/mL (0.00-0.029) 06/22/20 08:42 Results - Labs CBC & Chem 7: 06/22/20 08:42 06/22/20 08:42 Labs: Laboratory Last Values WBC 8.6 K/mm3 (4.5-11.0) 06/22/20 08:42 RBC 4.08 M/mm3 (3.65-5.03) 06/22/20 08:42 Hgb 10.5 gm/dl (10.1-14.3) 06/22/20 08:42 Hct 32.8 % (30.3-42.9) 06/22/20 08:42 MCV 80 fl (79-97) 06/22/20 08:42 MCH 26 pg (28-32) L 06/22/20 08:42 MCHC 32 % (30-34) 06/22/20 08:42 RDW 17.0 % (13.2-15.2) H 06/22/20 08:42 Plt Count 345 K/mm3 (140-440) 06/22/20 08:42 Lymph % (Auto) 11.4 % (13.4-35.0) L 06/22/20 08:42 [place] % (Auto) 6.7 % (0.0-7.3) 06/22/20 08:42 Eos % (Auto) 3.7 % (0.0-4.3) 06/22/20 08:42 Baso % (Auto) 0.5 % (0.0-1.8) 06/22/20 08:42 Lymph # (Auto) 1.0 K/mm3 (1.2-5.4) L 06/22/20 08:42 [place] # (Auto) 0.6 K/mm3 (0.0-0.8) 06/22/20 08:42 Eos # (Auto) 0.3 K/mm3 (0.0-0.4) 06/22/20 08:42 Baso # (Auto) 0.0 K/mm3 (0.0-0.1) 06/22/20 08:42 Seg Neutrophils % 77.7 % (40.0-70.0) H 06/22/20 08:42 Seg Neutrophils # 6.7 K/mm3 (1.8-7.7) 06/22/20 08:42 PT 12.8 Sec. (12.2-14.9) 06/22/20 08:42 INR 0.97 (0.87-1.13) 06/22/20 08:42 D-Dimer 1404.26 ng/mlDDU (0-234) H 06/22/20 08:42 Sodium 137 mmol/L (137-145) 06/22/20 08:42 Potassium 4.1 mmol/L (3.6-5.0) 06/22/20 08:42 Chloride 101.1 mmol/L (98-107) 06/22/20 08:42 Carbon Dioxide 29 mmol/L (22-30) 06/22/20 08:42 Anion Gap 11 mmol/L 06/22/20 08:42 BUN 13 mg/dL (7-17) 06/22/20 08:42 Creatinine 0.6 mg/dL (0.6-1.2) 06/22/20 08:42 Estimated GFR > 60 ml/min 06/22/20 08:42 BUN/Creatinine Ratio 22 % 06/22/20 08:42 Glucose 85 mg/dL (65-100) 06/22/20 08:42 Lactic Acid 1.00 mmol/L (0.7-2.0) 06/22/20 08:42 Calcium 9.3 mg/dL (8.4-10.2) 06/22/20 08:42 Magnesium 1.90 mg/dL (1.7-2.3) 06/22/20 08:42 Ferritin 50.3 ng/mL (10.0-200.0) 06/22/20 08:42 Total Bilirubin 0.40 mg/dL (0.1-1.2) 06/22/20 08:42 Direct Bilirubin < 0.2 mg/dL (0-0.2) 06/22/20 08:42 Indirect Bilirubin 0.2 mg/dL 06/22/20 08:42 AST 21 units/L (5-40) 06/22/20 08:42 ALT 25 units/L (7-56) 06/22/20 08:42 Alkaline Phosphatase 110 units/L (35-129) 06/22/20 08:42 Lactate Dehydrogenase 257 units/L (91-180) H 06/22/20 08:42 Total Creatine Kinase 41 units/L (30-135) 06/22/20 08:42 Troponin T < 0.010 ng/mL (0.00-0.029) 06/22/20 08:42 C-Reactive Protein 2.10 mg/dL (0.00-1.30) H 06/22/20 08:42 NT-Pro-B Natriuret Pep 679.9 pg/mL (0-900) 06/22/20 08:42 Total Protein 7.5 g/dL (6.3-8.2) 06/22/20 08:42 Albumin 3.4 g/dL (3.9-5) L 06/22/20 08:42 Albumin/Globulin Ratio 0.8 % 06/22/20 08:42 Lipase 13 units/L (13-60) 06/22/20 08:42 Procalcitonin < 0.05 ng/mL (<0.15) 06/22/20 08:42 Urine Color Yellow (Yellow) 06/22/20 09:00 Urine Turbidity Clear (Clear) 06/22/20 09:00 Urine pH 6.0 (5.0-7.0) 06/22/20 09:00 Ur Specific [place] 1.010 (1.003-1.030) 06/22/20 09:00 Urine Protein 30 mg/dl mg/dL (Negative) 06/22/20 09:00 Urine Glucose (UA) Neg mg/dL (Negative) 06/22/20 09:00 Urine Ketones Neg mg/dL (Negative) 06/22/20 09:00 Urine Blood Neg (Negative) 06/22/20 09:00 Urine Nitrite Neg (Negative) 06/22/20 09:00 Urine Bilirubin Neg (Negative) 06/22/20 09:00 Urine Urobilinogen < 2.0 mg/dL (<2.0) 06/22/20 09:00 Ur Leukocyte Esterase Sm (Negative) 06/22/20 09:00 Urine WBC (Auto) 3.0 /HPF (0.0-6.0) 06/22/20 09:00 Urine RBC (Auto) 0.0 /HPF (0.0-6.0) 06/22/20 09:00 U Epithel Cells (Auto) 2.0 /HPF (0-13.0) 06/22/20 09:00 Urine Mucus Few /HPF 06/22/20 09:00 - Imaging and Cardiology Chest x-ray: image reviewed MRI - head: image reviewed Assessment and Plan VTE prophylaxis?: Chemical Plan of care discussed with patient/family: Yes - Patient Problems (1) CHF exacerbation Current Visit: Yes Status: Acute Plan to address problem: Admit the patient to the cardiac telemetry. Put the patient on CHF pathway. Lasix 40 mg IV every 12 hours. Fluid restriction 1500 cc/day. Will maintain intake and output. We also order a echocardiogram. Will consult cardiology if needed. (2) Abdominal pain Current Visit: Yes Status: Acute Plan to address problem: Pepcid 20 mg p.o. twice daily. Zofran 4 mg IV every 6 hours as needed. Tylenol 650 p[address]o. every [address] scan of the abdomen and pelvis done at [facility] showed no acute intra-abdominal pathology (3) History of pulmonary embolism Current Visit: Yes Status: Acute Plan to address problem: Patient is on Eliquis 5 mg p.o. twice a day. We will monitor the patient closel y (4) Morbid obesity Current Visit: Yes Status: Acute Plan to address problem: We discussed with the patient regarding calorie count and importance of weight reduction. We also put the patient on fluid restriction and daily weight (5) Swelling of lower extremity Current Visit: Yes Status: Acute Plan to address problem: Admit the patient to the cardiac telemetry. Put the patient on CHF pathway. Lasix 40 mg IV every 12 hours. Fluid restriction 1500 cc/day. Will maintain intake and output. We also order a echocardiogram. Will consult cardiology if needed. (6) DVT prophylaxis Current Visit: No Status: Acute Plan to address problem: Patient is on Eliquis 5 mg p.o. twice a day for DVT prophylaxis. Pepcid 20 mg p.o. twice daily for GI prophylaxis. Patient is a full code (7) Diabetes 1.5, managed as type 2 Current Visit: Yes Status: Acute Plan to address problem: We put the patient on diabetic diet. Also put the patient on Humalog sliding scale moderate dose with Accu-Chek before meals and at bedtime. Recheck BMP in the morning
[2020-06-22] MEDS ORDERED: ALBUTEROL 2.5 MG/3 ML NEBU IH PRN (22:46)
[2020-06-23] MEDS: APIXABAN 5 MG TAB PO SCH ×3 (00:32→21:37)
[2020-06-23] MEDS: MORPHINE 4 MG/1 ML INJ IV PRN (01:40)
[2020-06-23] MEDS: ONDANSETRON 4 MG ODT TAB PO PRN (01:40)
[2020-06-23] MEDS: GABAPENTIN 300 MG CAP PO SCH ×3 (06:10→21:37)
[2020-06-23] MEDS: FUROSEMIDE 40 MG/4 ML INJ IV SCH ×2 (06:10→17:13)
[2020-06-23] MEDS: hydrALAZINE 25 MG TAB PO SCH ×3 (06:11→21:38)
[2020-06-23] MEDS ORDERED: BUDESONIDE 0.5 MG/2 ML NEBU IH SCH (08:00)
[2020-06-23] MEDS: INSULIN LISPRO 100 UNIT/ML SUB-Q SCH ×4 (08:35→21:36)
--- NOTE | 2020-06-23 08:41 | Progress Note ---
Assessment and Plan Assessment and plan: --PUI; high suspicion for COVID-19 Contact and droplet isolation Oneil PCR test is requested Inflammatory markers, ID consult if positive Supportive care --Elevated D-dimers; Patient already has history of PE on Eliquis Lower extremity venous Doppler negative for DVT --History of pulmonary embolism; On Eliquis, continue per protocol --History of abdominal pain; CT abd/pelvis / [facility],negative for acute abnormality Symptomatic management, pain meds, Protonix Diet as tolerated, GI consult if no improvement --Worsening leg edema; Evaluate for CHF, input output monitoring Echocardiogram for LV function ejection fraction Cardiology consult if needed --Morbid obesity; BMI 76.8 Dietary modification, exercise as tolerated and weight reduction when medically stable Benefit by bariatric surgical/medical weight reduction program Consultation as outpatient on DC when stable --Possible obesity hypoventilation syndrome; Supportive care oxygen, nebulizers if needed Home oxygen evaluation if patient does not have oxygen --Possible CONI; Patient needs CPAP/BiPAP at night Outpatient sleep study to evaluate for CONI if not already done --Type 2 diabetes mellitus; moderate control Accu-Chek sliding scale coverage ADA diet long-acting insulin as needed Patient's A1c 8.6[1-year ago], check A1c again --Hypertension; moderate control, resume home antihypertensives As needed hydralazine --DVT prophylaxis; Patient is already on Eliquis --Full CODE STATUS Closely monitor patient and adjust the management as needed DC planning per case management Follow pending tests, follow clinically Plan of care reviewed with the patient and her nurse 06/23/2020; admitted as PUI, oneil PCR test pending Patient is morbidly obese, on oxygen Possible obesity hypoventilation, CONI. History Interval history: I have seen and examined the patient at the bedside this morning Strict isolation precautions, PPE protocols per COVID-19 guidelines were followed throughout my evaluation And interaction with the patient in her room. Morbidly obese female patient on oxygen, in mild distress Admitted as PUI/oneil PCR test requested Patient complains of mild shortness of breath Vital signs reviewed Hospitalist Physical - Constitutional Vitals: Temp Pulse Resp BP Pulse Ox 97.5 F L 92 H 20 154/66 100 06/23/20 01:27 06/23/20 03:18 06/23/20 03:18 06/23/20 01:27 06/23/20 03:18 General appearance: Present: no acute distress, well-nourished - EENT Eyes: Present: PERRL, EOM intact - Neck Neck: Present: supple, normal ROM - Respiratory Respiratory effort: normal Respiratory: bilateral: diminished, negative: rales, rhonchi, wheezing - Cardiovascular Rhythm: regular Heart Sounds: Present: S1 & S2 - Extremities Extremities: no ischemia, No edema - Abdominal General gastrointestinal: soft, non-tender, non-distended, normal bowel sounds - Integumentary Integumentary: Present: clear, warm - Psychiatric Psychiatric: appropriate mood/affect, cooperative - Neurologic Neurologic: CNII-XII intact, moves all extremities HEART Score - HEART Score Troponin: Troponin T < 0.010 ng/mL (0.00-0.029) 06/22/20 08:42 Results - Labs CBC & Chem 7: 06/22/20 08:42 06/23/20 08:00 Labs: Laboratory Last Values WBC 8.6 K/mm3 (4.5-11.0) 06/22/20 08:42 RBC 4.08 M/mm3 (3.65-5.03) 06/22/20 08:42 Hgb 10.5 gm/dl (10.1-14.3) 06/22/20 08:42 Hct 32.8 % (30.3-42.9) 06/22/20 08:42 MCV 80 fl (79-97) 06/22/20 08:42 MCH 26 pg (28-32) L 06/22/20 08:42 MCHC 32 % (30-34) 06/22/20 08:42 RDW 17.0 % (13.2-15.2) H 06/22/20 08:42 Plt Count 345 K/mm3 (140-440) 06/22/20 08:42 Lymph % (Auto) 11.4 % (13.4-35.0) L 06/22/20 08:42 [place] % (Auto) 6.7 % (0.0-7.3) 06/22/20 08:42 Eos % (Auto) 3.7 % (0.0-4.3) 06/22/20 08:42 Baso % (Auto) 0.5 % (0.0-1.8) 06/22/20 08:42 Lymph # (Auto) 1.0 K/mm3 (1.2-5.4) L 06/22/20 08:42 [place] # (Auto) 0.6 K/mm3 (0.0-0.8) 06/22/20 08:42 Eos # (Auto) 0.3 K/mm3 (0.0-0.4) 06/22/20 08:42 Baso # (Auto) 0.0 K/mm3 (0.0-0.1) 06/22/20 08:42 Seg Neutrophils % 77.7 % (40.0-70.0) H 06/22/20 08:42 Seg Neutrophils # 6.7 K/mm3 (1.8-7.7) 06/22/20 08:42 PT 12.8 Sec. (12.2-14.9) 06/22/20 08:42 INR 0.97 (0.87-1.13) 06/22/20 08:42 D-Dimer 1404.26 ng/mlDDU (0-234) H 06/22/20 08:42 Sodium 137 mmol/L (137-145) 06/22/20 08:42 Potassium 4.1 mmol/L (3.6-5.0) 06/22/20 08:42 Chloride 101.1 mmol/L (98-107) 06/22/20 08:42 Carbon Dioxide 29 mmol/L (22-30) 06/22/20 08:42 Anion Gap 11 mmol/L 06/22/20 08:42 BUN 13 mg/dL (7-17) 06/22/20 08:42 Creatinine 0.6 mg/dL (0.6-1.2) 06/22/20 08:42 Estimated GFR > 60 ml/min 06/22/20 08:42 BUN/Creatinine Ratio 22 % 06/22/20 08:42 Glucose 85 mg/dL (65-100) 06/22/20 08:42 Lactic Acid 1.00 mmol/L (0.7-2.0) 06/22/20 08:42 Calcium 9.3 mg/dL (8.4-10.2) 06/22/20 08:42 Magnesium 1.90 mg/dL (1.7-2.3) 06/22/20 08:42 Ferritin 50.3 ng/mL (10.0-200.0) 06/22/20 08:42 Total Bilirubin 0.40 mg/dL (0.1-1.2) 06/22/20 08:42 Direct Bilirubin < 0.2 mg/dL (0-0.2) 06/22/20 08:42 Indirect Bilirubin 0.2 mg/dL 06/22/20 08:42 AST 21 units/L (5-40) 06/22/20 08:42 ALT 25 units/L (7-56) 06/22/20 08:42 Alkaline Phosphatase 110 units/L (35-129) 06/22/20 08:42 Lactate Dehydrogenase 257 units/L (91-180) H 06/22/20 08:42 Total Creatine Kinase 41 units/L (30-135) 06/22/20 08:42 Troponin T < 0.010 ng/mL (0.00-0.029) 06/22/20 08:42 C-Reactive Protein 2.10 mg/dL (0.00-1.30) H 06/22/20 08:42 NT-Pro-B Natriuret Pep 679.9 pg/mL (0-900) 06/22/20 08:42 Total Protein 7.5 g/dL (6.3-8.2) 06/22/20 08:42 Albumin 3.4 g/dL (3.9-5) L 06/22/20 08:42 Albumin/Globulin Ratio 0.8 % 06/22/20 08:42 Lipase 13 units/L (13-60) 06/22/20 08:42 Procalcitonin < 0.05 ng/mL (<0.15) 06/22/20 08:42 Urine Color Yellow (Yellow) 06/22/20 09:00 Urine Turbidity Clear (Clear) 06/22/20 09:00 Urine pH 6.0 (5.0-7.0) 06/22/20 09:00 Ur Specific [place] 1.010 (1.003-1.030) 06/22/20 09:00 Urine Protein 30 mg/dl mg/dL (Negative) 06/22/20 09:00 Urine Glucose (UA) Neg mg/dL (Negative) 06/22/20 09:00 Urine Ketones Neg mg/dL (Negative) 06/22/20 09:00 Urine Blood Neg (Negative) 06/22/20 09:00 Urine Nitrite Neg (Negative) 06/22/20 09:00 Urine Bilirubin Neg (Negative) 06/22/20 09:00 Urine Urobilinogen < 2.0 mg/dL (<2.0) 06/22/20 09:00 Ur Leukocyte Esterase Sm (Negative) 06/22/20 09:00 Urine WBC (Auto) 3.0 /HPF (0.0-6.0) 06/22/20 09:00 Urine RBC (Auto) 0.0 /HPF (0.0-6.0) 06/22/20 09:00 U Epithel Cells (Auto) 2.0 /HPF (0-13.0) 06/22/20 09:00 Urine Mucus Few /HPF 06/22/20 09:00 Bob/IV: Voiding Method External Female Catheter Active Medications - Current Medications Current Medications: Generic Name Dose Route Start Last Admin Trade Name Freq PRN Reason Stop Dose Admin Acetaminophen 650 mg 06/22/20 13:31 Acetaminophen 325 Mg Tab PO Q6HR PRN PAIN Albuterol 2.5 mg 06/22/20 22:46 Albuterol 2.5 Mg/3 Ml Nebu IH Q4HRT PRN Shortness Of Breath Amlodipine Besylate 10 mg 06/23/20 10:00 Amlodipine 10 Mg Tab PO DAILY [facility] Apixaban 5 mg 06/22/20 23:00 06/23/20 00:32 Apixaban 5 Mg Tab PO 5 mg BID [facility] Administration Protocol Arformoterol Tartrate 15 mcg 06/23/20 08:00 Arformoterol 15 Mcg/2 Ml Nebu IH Q12HRT [facility] Aspirin 81 mg 06/23/20 10:00 Aspirin 81 Mg Tab Chew PO QDAY [facility] Budesonide 1 mg 06/23/20 08:00 Budesonide 0.5 Mg/2 Ml Nebu IH Q12HRT [facility] Carvedilol 12.5 mg 06/23/20 10:00 Carvedilol 12.5 Mg Tab PO BID [facility] Dextrose 50 ml 06/22/20 22:16 Dextrose 50% In Water (25gm) 50 Ml Syringe IV Q30MIN PRN Hypoglycemia Protocol Famotidine 20 mg 06/23/20 10:00 Famotidine 20 Mg Tab PO BID [facility] Furosemide 40 mg 06/23/20 06:00 06/23/20 06:10 Furosemide 40 Mg/4 Ml Inj IV 40 mg BID@0600,1800 JULITA Administration Gabapentin 300 mg 06/23/20 06:00 06/23/20 06:10 Gabapentin 300 Mg Cap PO 300 mg Q8HR JULITA Administration Hydralazine HCl 25 mg 06/23/20 06:00 06/23/20 06:11 Hydralazine 25 Mg Tab PO 25 mg Q8HR JULITA Administration Insulin Human Lispro 0 unit 06/23/20 07:30 Insulin Lispro 100 Unit/Ml SUB-Q ACHS [facility] Protocol Losartan Potassium 100 mg 06/23/20 10:00 Losartan 50 Mg Tab PO QDAY JULITA Morphine Sulfate 4 mg 06/22/20 13:31 06/23/20 01:40 Morphine 4 Mg/1 Ml Inj IV 4 mg Q4HR PRN Administration Pain , Severe (7-10) Ondansetron HCl 4 mg 06/22/20 13:31 06/23/20 01:40 Ondansetron 4 Mg Odt Tab PO 4 mg Q6HR PRN Administration Nausea Oxycodone/Acetaminophen 1 tab 06/22/20 22:12 Oxycodone /Acetaminophen 5-325mg Tab PO Q6H PRN Pain, Moderate (4-6)
[2020-06-23] MEDS ORDERED: hydrALAZINE 20 MG/1 ML INJ IV PRN (08:48)
[2020-06-23 09:39] LABS: BUN/Creatinine Ratio 11; Blood Urea Nitrogen 8 mg/dL (7-17); Calcium 9.5 mg/dL (8.4-10.2); Hemolysis Index 0
[2020-06-23] MEDS ORDERED: [UNRECOGNIZED DRUG - OTHER] IH SCH (10:00)
[2020-06-23] MEDS ORDERED: NON-FORMULARY EACH (Losartan [Cozaar] 100 MG Tablet) PO SCH (10:00)
[2020-06-23] MEDS: ARFORMOTEROL 15 MCG/2 ML NEBU IH SCH ×2 (11:24→20:55)
[2020-06-23] MEDS: amLODIPine 10 MG TAB PO SCH (11:43)
[2020-06-23] MEDS: carvediloL 12.5 MG TAB PO SCH ×2 (11:43→21:37)
[2020-06-23] MEDS: LOSARTAN 50 MG TAB PO SCH (11:43)
[2020-06-23] MEDS: ASPIRIN 81 MG TAB CHEW PO SCH (11:43)
[2020-06-23] MEDS: FAMOTIDINE 20 MG TAB PO SCH ×2 (11:44→21:36)
[2020-06-23] MEDS ORDERED: FLU VACC QUAD 2020-2021 (6 months +)/PF 60 0.5 ML SYRINGE IM ONE (12:00)
[2020-06-23] MEDS: oxyCODONE /ACETAMINOPHEN 5-325MG TAB PO PRN ×2 (14:53→21:37)
--- NOTE | 2020-06-23 16:23 | Event Note ---
Date: 06/23/20 Patient's loomis PCR test is negative May DC isolation, continue current management Closely monitor the patient and adjust management as needed Lower extremity venous Doppler, negative for DVT Patient already has history of PE on Eliquis Plan of care discussed with patient's nurse
[2020-06-23] MEDS: INSULIN NPH/REGULAR 70/30 INJ SUB-Q SCH (18:30)
[2020-06-23] MEDS: BUDESONIDE 0.5 MG/2 ML NEBU IH SCH (20:55)
[2020-06-23 21:33] VITALS: BP 132/63
[2020-06-24 05:44] LABS: BUN/Creatinine Ratio 13; Blood Urea Nitrogen 10 mg/dL (7-17); Calcium 8.7 mg/dL (8.4-10.2); Hemolysis Index 0
[2020-06-24] MEDS: MORPHINE 4 MG/1 ML INJ IV PRN ×2 (06:40→11:24)
[2020-06-24] MEDS: GABAPENTIN 300 MG CAP PO SCH (06:42)
[2020-06-24] MEDS: hydrALAZINE 25 MG TAB PO SCH (06:42)
[2020-06-24] MEDS: ONDANSETRON 4 MG ODT TAB PO PRN (06:43)
[2020-06-24] MEDS: FUROSEMIDE 40 MG/4 ML INJ IV SCH (06:43)
[2020-06-24] MEDS: INSULIN LISPRO 100 UNIT/ML SUB-Q SCH ×2 (07:30→13:09)
[2020-06-24] MEDS: INSULIN NPH/REGULAR 70/30 INJ SUB-Q SCH (08:00)
[2020-06-24] MEDS: BUDESONIDE 0.5 MG/2 ML NEBU IH SCH (08:35)
[2020-06-24] MEDS: ARFORMOTEROL 15 MCG/2 ML NEBU IH SCH (08:35)
[2020-06-24] MEDS: amLODIPine 10 MG TAB PO SCH (11:17)
[2020-06-24] MEDS: APIXABAN 5 MG TAB PO SCH (11:17)
[2020-06-24] MEDS: LOSARTAN 50 MG TAB PO SCH (11:18)
[2020-06-24] MEDS: carvediloL 12.5 MG TAB PO SCH (11:18)
[2020-06-24] MEDS: FAMOTIDINE 20 MG TAB PO SCH (11:18)
[2020-06-24] MEDS: ASPIRIN 81 MG TAB CHEW PO SCH (11:18)
--- NOTE | 2020-06-24 12:47 | Discharge Summary ---
Providers - Providers Date of Admission: 06/22/20 17:12 Date of discharge: 06/24/20 Attending physician: ARIN LEHMAN Primary care physician: CARPET INSTALLATION SPECIALIST Hospitalization Condition: Good Disposition: DC-01 TO HOME OR SELFCARE Core Measure Documentation - Palliative Care Palliative Care/ Comfort Measures: Not Applicable - Core Measures Any of the following diagnoses?: none Exam - Constitutional Vitals: Temp Pulse Resp BP Pulse Ox 98.6 F 72 20 132/63 95 06/23/20 21:32 06/24/20 08:20 06/24/20 11:24 06/23/20 21:32 06/23/20 21:52 Plan Activity: advance as tolerated Diet: other (Cardiac diet) Additional Instructions: Continue home oxygen as before. Advised to see private pulmonary and private lumber bearer as needed. Follow primary care physician in 3 to 5 days. If you have worsening symptoms contact MD or go to emergency room Follow up with: PRIMARY CARE, [Primary Care Provider] - 3-5 Days Prescriptions: amLODIPine 10 mg PO DAILY #30 tablet hydrALAZINE [Apresoline TAB] 25 mg PO Q8HR #90 tablet carvediloL [Coreg] 12.5 mg PO BID #60 tablet Losartan [Cozaar] 100 mg PO QDAY #30 tablet
--- NOTE | 2020-06-26 08:38 | Electrocardiograph Report ---
[facility] Test Date: 2020-06-22 Test Time: 08:34:03 Pat Name: GURVINDER REYES Department: Room: A373 1 Gender: F Director Of Pupil Personnel Program: KENDAL : 1970 Requested By: DARRYL MARQUIS Order Number: [id number] Reading MD: Lowell Box Measurements Intervals [place] Rate: 89 P: 51 MO: 156 QRS: 1 QRSD: 81 T: 48 QT: 372 QTc: 452 Interpretive Statements Sinus rhythm No previous ECG available for comparison Electronically Signed On 06-26-2020 5:38:30 PDT by Lowell Box
== END 2020-06-24 16:00 | disposition home or self-care (01) ==
LOC: ED 08:13 → 3A 17:12 → UNDOADMOB 22:00 → 3A 22:00 → UNDOADMOB 06-23 17:12 → 3A 06-23 17:12
PROVIDERS: ADMIT Hospitalist; ATTEND Internal Medicine
DX: I11.0 Hypertensive heart disease with heart failure (principal); I50.9 Heart failure, unspecified; Z20.822 Contact with and (suspected) exposure to COVID-19; E66.01 Morbid (severe) obesity due to excess calories; E11.9 Type 2 diabetes mellitus without complications; J45.909 Unspecified asthma, uncomplicated; M79.89 Other specified soft tissue disorders; R10.9 Unspecified abdominal pain; Z86.711 Personal history of pulmonary embolism; Z79.4 Long term (current) use of insulin; Z79.82 Long term (current) use of aspirin; Z98.51 Tubal ligation status; Z98.890 Other specified postprocedural states; Z90.49 Acquired absence of other specified parts of digestive tract; Z68.45 Body mass index [BMI] 70 or greater, adult
CPT/HCPCS: 36415; 71045; 80048; 80076; 81001; 82140; 82550; 82728; 82962; 83036; 83615; 83690; 83735; 83880; 84145; 84484; 85025; 85379; 85610; 86140; 93005; 93970; 94640; 96372; 96374; 96375; 96376; 99291; G0378; J1940; J2270; J2405; U0003; J1815; Q0162